=== PATIENT | female | born 1970 | race Caucasian/White ===

== ENCOUNTER → 2016-08-07 | Outpatient (REF) | payer OTHER ==
[2016-08-07 12:15] LABS: BASO % 0.7 % (0.0-1.0); EOS # 0.1 K/mm3 (0.0-0.50); EOS % 1.7 % (0.0-3.0); LARGE UNSTAINED CELL # 0.1 K/mm3 (0.0-0.4); LARGE UNSTAINED CELL % 1.5 % (0.0-4.0); LYMPH # 1.9 K/mm3 (1.5-4.5); LYMPH % 30.5 % (24.0-44.0); MEAN CORPUSCULAR HEMOGLOBIN 24.8 pg (27.0-33.0); MEAN CORPUSCULAR HGB CONC 30.3 g/dl (32.0-36.5); MEAN CORPUSCULAR VOLUME 81.9 fl (80.0-96.0); MONO # 0.4 K/mm3 (0.0-0.8); MONO % 6.6 % (0.0-5.0); NEUTROPHILS # 3.5 K/mm3 (1.8-7.7); PLATELET COUNT, AUTOMATED 312 k/mm3 (150-450); RED CELL DISTRIBUTION WIDTH 14.5 % (11.5-14.5); WHITE BLOOD COUNT 5.9 K/mm3 (4.0-10.0)
[2016-08-07 12:36] LABS: LUTEINIZING HORMONE 16.8 mIU/mL
[2016-08-07 12:37] LABS: FOLLICLE STIMULATING HORMONE 39.7 mIU/mL; VITAMIN B12 LEVEL 414 PG/ML (247-911)
[2016-08-07 12:43] LABS: ALBUMIN 3.9 GM/DL (3.2-5.2); ALBUMIN/GLOBULIN RATIO 1.11 (1.00-1.93); ALKALINE PHOSPHATASE 102 U/L (45-117); ALT/SGPT 21 U/L (12-78); ANION GAP 6 MEQ/L (8-16); AST/SGOT 14 U/L (15-37); BILIRUBIN,TOTAL 0.2 MG/DL (0.2-1.0); BLOOD UREA NITROGEN 15 MG/DL (7-18); CALCIUM LEVEL 7.8 MG/DL (8.5-10.1); CARBON DIOXIDE LEVEL 30 MEQ/L (21-32); CHLORIDE LEVEL 104 MEQ/L (98-107); CHOLESTEROL LEVEL 146 MG/DL (<200); CREATININE FOR GFR 0.83 MG/DL (0.55-1.02); FERRITIN 3 NG/ML (8-252); GLOMERULAR FILTRATION RATE > 60.0 (>58); GLUCOSE, FASTING 103 MG/DL (70-105); PERCENT SATURATION 6.5 % (13.2-37.4); POTASSIUM SERUM 4.2 MEQ/L (3.5-5.1); SODIUM LEVEL 140 MEQ/L (136-145); TOTAL IRON BINDING CAPACITY 449 UG/DL (250-450); TOTAL PROTEIN 7.4 GM/DL (6.4-8.2); TRIGLYCERIDES LEVEL 103 MG/DL (<150)
== END ==
LOC: M LABDRAWP 11:33
PROVIDERS: ATTEND Family Medicine
DX: E55.9 Vitamin D deficiency, unspecified (principal); N95.1 Menopausal and female climacteric states; E11.9 Type 2 diabetes mellitus without complications; E78.5 Hyperlipidemia, unspecified

== ENCOUNTER → 2016-08-19 | Outpatient (CLI) | payer OTHER ==
--- NOTE | 2016-08-20 08:17 | REPMRS ---
Patient History The patient states she has not had a clinical breast exam in over a year. No known family history of cancer. Digital Woman Screen Mammo: August 19, 2016 - Exam #: [id number] Bilateral CC and MLO view(s) were taken. Technologist: Lucie Mike, Technologist Prior study comparison: July 04, 2015, digital woman screen mammo performed at [facility]. July 03, 2014, digital woman screen mammo performed at [facility]. June 14, 2013, digital woman screen mammo performed at [facility]. FINDINGS: The breast tissue is heterogeneously dense. This may lower the sensitivity of mammography. There is a moderate amount of heterogeneously dense fibroglandular tissue which is fairly symmetric. There is no interval development of dominant mass, architectural distortion, or clustered microcalcification typical of malignancy. There has been no change in the appearance of the mammogram from the prior studies. ASSESSMENT: BI-RADS/ACR category 1 mammogram. Negative. Recommendation Routine screening mammogram of both breasts in 1 year (for women over age 40). This mammogram was interpreted with the aid of an FDA-approved computer-aided dectection system. Electronically Signed By: Darryl Romeo MD 08/20/16 0816
== END ==
LOC: M WHC 16:18
PROVIDERS: ATTEND Family Medicine
DX: Z12.39 Encounter for other screening for malignant neoplasm of breast (principal)

== ENCOUNTER → 2016-09-02 | Outpatient (REF) | payer OTHER | LOC: M LAB REF 09:11 | PROVIDERS: ATTEND Physician Assistant | DX: J02.9 Acute pharyngitis, unspecified (principal); J01.10 Acute frontal sinusitis, unspecified; R05 Cough ==

== ENCOUNTER → 2017-01-02 | Outpatient (CLI) | payer OTHER ==
[2017-01-02 20:23] LABS: BASO # 0.1 10^3/uL (0.0-0.2); BASO % 0.6 % (0.0-1.0); EOS # 0.2 10^3/uL (0.0-0.50); EOS % 1.8 % (0.0-3.0); IMMATURE GRANULOCYTE % 0.5 % (0-0); LYMPH # 2.6 10^3/uL (1.5-4.5); LYMPH % 30.9 % (24.0-44.0); MEAN CORPUSCULAR HEMOGLOBIN 24.8 pg (27.0-33.0); MEAN CORPUSCULAR HGB CONC 29.9 g/dl (32.0-36.5); MONO # 0.7 10^3/uL (0.0-0.8); MONO % 8.3 % (0.0-5.0); NEUTROPHILS # 4.9 10^3/uL (1.8-7.7); NEUTROPHILS % 57.9 % (36.0-66.0); PLATELET COUNT, AUTOMATED 293 10^3/uL (150-450); RED CELL DISTRIBUTION WIDTH 16.2 % (11.5-14.5); WHITE BLOOD COUNT 8.4 10^3/uL (4.0-10.0)
[2017-01-02 20:25] LABS: ADD MORPHOLOGY? NO
[2017-01-02 21:13] LABS: ALBUMIN 3.7 GM/DL (3.2-5.2); ALBUMIN/GLOBULIN RATIO 1.12 (1.00-1.93); ALKALINE PHOSPHATASE 88 U/L (45-117); ALT/SGPT 22 U/L (12-78); ANION GAP 6 MEQ/L (8-16); AST/SGOT 13 U/L (15-37); BILIRUBIN,TOTAL 0.2 MG/DL (0.2-1.0); BLOOD UREA NITROGEN 16 MG/DL (7-18); CALCIUM LEVEL 8.5 MG/DL (8.5-10.1); CARBON DIOXIDE LEVEL 29 MEQ/L (21-32); CHLORIDE LEVEL 104 MEQ/L (98-107); FERRITIN 4 NG/ML (8-252); FREE T4 0.96 NG/DL (0.76-1.46); GLOMERULAR FILTRATION RATE > 60.0 (>58); GLUCOSE, FASTING 106 MG/DL (70-105); PERCENT SATURATION 5.9 % (13.2-45.0); POTASSIUM SERUM 4.2 MEQ/L (3.5-5.1); SODIUM LEVEL 139 MEQ/L (136-145); TOTAL IRON BINDING CAPACITY 388 UG/DL (250-450)
== END ==
LOC: M WUC 15:49
PROVIDERS: ATTEND Family Medicine
DX: D50.9 Iron deficiency anemia, unspecified (principal); E11.9 Type 2 diabetes mellitus without complications; E55.9 Vitamin D deficiency, unspecified

== ENCOUNTER → 2017-01-23 | Outpatient (CLI) | payer OTHER ==
--- NOTE | 2017-01-23 18:19 | REP ---
Lumbar spine five views: Comparison is 06/01/2014. There is scoliosis convex right at the thoracolumbar junction, unchanged. There are surgical clips in the abdominal right upper quadrant, unchanged. Vertebral body heights and alignment are normal and unchanged. There is mild disc space narrowing and degenerative disc disease at L1-2. This is unchanged. The spaces are otherwise unremarkable. There is no spondylolysis. There is no spondylolisthesis. The pedicles, facets and sacroiliac articulations are unremarkable. Impression: Scoliosis of the thoracolumbar junction. Mild L1-2 degenerative disc disease. Otherwise, negative lumbar spine. Signed by Jb Hickman MD 01/23/2017 06:11 P
== END ==
LOC: M WUC 17:30
PROVIDERS: ATTEND Physician Assistant
DX: M54.5 Low back pain (principal)

== ENCOUNTER → 2017-05-21 | Outpatient (REF) | payer OTHER ==
[2017-05-21 17:28] LABS: ALBUMIN/GLOBULIN RATIO 1.18 (1.00-1.93); ALKALINE PHOSPHATASE 109 U/L (45-117); ALT/SGPT 19 U/L (12-78); ANION GAP 9 MEQ/L (8-16); AST/SGOT 10 U/L (7-37); BILIRUBIN,TOTAL 0.3 MG/DL (0.2-1.0); BLOOD UREA NITROGEN 12 MG/DL (7-18); C REACTIVE PROTEIN QUANTITATIV 0.32 MG/DL (0.00-0.30); CALCIUM LEVEL 8.8 MG/DL (8.5-10.1); CARBON DIOXIDE LEVEL 29 MEQ/L (21-32); CHLORIDE LEVEL 103 MEQ/L (98-107); CHOLESTEROL LEVEL 146 MG/DL (<200); CHOLESTEROL RISK RATIO 2.433 (<5); CPK CREATINE PHOSPHOKINASE 78 U/L (26-192); CREATININE FOR GFR 0.84 MG/DL (0.55-1.30); GLOMERULAR FILTRATION RATE > 60.0 (>58); GLUCOSE, FASTING 87 MG/DL (70-100); HDL CHOLESTEROL 60 MG/DL (>40); LDL CHOLESTEROL 57.2 MG/DL (<100); NON-HDL-C 86 MG/DL; POTASSIUM SERUM 4.1 MEQ/L (3.5-5.1); SODIUM LEVEL 141 MEQ/L (136-145); TOTAL PROTEIN 7.4 GM/DL (6.4-8.2); TRIGLYCERIDES LEVEL 144 MG/DL (<150)
[2017-05-21 17:32] LABS: APPEARANCE, URINE CLEAR (CLEAR); BACTERIA, URINE AUTO 1+ (NEGATIVE); BILIRUBIN, URINE AUTO NEGATIVE (NEGATIVE); BLOOD, URINE BLOOD NEGATIVE (NEGATIVE); COLOR, URINE YELLOW (YELLOW); GLUCOSE, URINE (UA) AUTO NEGATIVE (NEGATIVE); KETONE, URINE AUTO NEGATIVE (NEGATIVE); LEUKOCYTE ESTERASE, URINE AUTO NEGATIVE (NEGATIVE); NITRITE, URINE AUTO NEGATIVE (NEGATIVE); PROTEIN, URINE AUTO NEGATIVE (NEGATIVE); RBC, URINE AUTO 0 /HPF (0-3); SQUAMOUS EPITHELIAL CELL UR AU 1 /HPF (0-6); UROBILINOGEN, URINE AUTO 0.2 mg/dL (0.0-2.0); WBC, URINE AUTO 1 /HPF (0-3)
[2017-05-21 17:39] LABS: PTH INTACT 46.1 PG/ML (18.5-88.0); TOTAL 25(OH) VITAMIN D 91.4 NG/ML (30.0-100.0)
[2017-05-21 17:40] LABS: VITAMIN B12 LEVEL 473 PG/ML (247-911)
[2017-05-21 17:47] LABS: CREATININE, URINE 69.6 MG/DL; MALB URINE SIEMENS 5.1 MG/L; MAU/CREAT RATIO 7.3 MCG/MG (0.0-30.0)
[2017-05-21 18:03] LABS: BASO # 0.1 10^3/uL (0.0-0.2); BASO % 0.7 % (0.0-1.0); EOS # 0.1 10^3/uL (0.0-0.50); EOS % 0.9 % (0.0-3.0); HEMATOCRIT 34.7 % (36.0-47.0); HEMOGLOBIN 10.7 g/dl (12.0-16.0); IMMATURE GRANULOCYTE % 0.4 % (0-3.0); LYMPH # 2.6 10^3/uL (1.5-4.5); LYMPH % 24.8 % (24.0-44.0); MEAN CORPUSCULAR HEMOGLOBIN 25.2 pg (27.0-33.0); MEAN CORPUSCULAR HGB CONC 30.8 g/dl (32.0-36.5); MEAN CORPUSCULAR VOLUME 81.8 fl (80.0-96.0); MONO # 0.9 10^3/uL (0.0-0.8); MONO % 8.5 % (0.0-5.0); NEUTROPHILS # 6.9 10^3/uL (1.8-7.7); NEUTROPHILS % 64.7 % (36.0-66.0); PLATELET COUNT, AUTOMATED 322 10^3/uL (150-450); RED BLOOD COUNT 4.24 10^6/uL (4.00-5.40); RED CELL DISTRIBUTION WIDTH 15.5 % (11.5-14.5); RETIC HEMOGLOBIN EQUIVALENT 28.6 pg (24-36); RETICULOCYTE # 68.7 10^9/L (17-77); RETICULOCYTE % 1.6 % (0.5-1.5); WHITE BLOOD COUNT 10.7 10^3/uL (4.0-10.0)
== END ==
LOC: M SFHCPLAZ 15:04
DX: D50.9 Iron deficiency anemia, unspecified (principal); E55.9 Vitamin D deficiency, unspecified; E78.5 Hyperlipidemia, unspecified; E11.9 Type 2 diabetes mellitus without complications
CPT/HCPCS: 82550

== ENCOUNTER → 2017-09-30 | Outpatient (CLI) | payer OTHER | LOC: M WHC 09:55 | DX: Z12.31 Encounter for screening mammogram for malignant neoplasm of breast (principal) | CPT/HCPCS: 77067 ==

== ENCOUNTER → 2018-02-01 | Outpatient (REF) | payer BC ==
[2018-02-01 11:38] LABS: BASO # 0.1 10^3/uL (0.0-0.2); BASO % 0.4 % (0.0-1.0); EOS # 0.1 10^3/uL (0.0-0.50); HEMOGLOBIN 10.2 g/dl (12.0-15.5); IMMATURE GRANULOCYTE % 0.4 % (0-3.0); LYMPH # 1.3 10^3/uL (1.5-4.5); LYMPH % 9.7 % (24.0-44.0); MEAN CORPUSCULAR HEMOGLOBIN 24.3 pg (27.0-33.0); MEAN CORPUSCULAR VOLUME 81.1 fl (80.0-96.0); MONO # 0.8 10^3/uL (0.0-0.8); MONO % 5.9 % (0.0-5.0); NEUTROPHILS # 11.1 10^3/uL (1.8-7.7); NEUTROPHILS % 82.6 % (36.0-66.0); PLATELET COUNT, AUTOMATED 322 10^3/uL (150-450); RED BLOOD COUNT 4.19 10^6/uL (4.00-5.40); RED CELL DISTRIBUTION WIDTH 15.8 % (11.5-14.5); RETIC HEMOGLOBIN EQUIVALENT 27.1 pg (24-36); RETICULOCYTE # 59.9 10^9/L (17-77); RETICULOCYTE % 1.4 % (0.5-1.5); WHITE BLOOD COUNT 13.5 10^3/uL (4.0-10.0)
[2018-02-01 12:05] LABS: ESTIMATED AVERAGE GLUCOSE 157 MG/DL (60-110); HEMOGLOBIN A1c 7.1 %
[2018-02-01 12:25] LABS: ALBUMIN 3.8 GM/DL (3.2-5.2); ALBUMIN/GLOBULIN RATIO 1.09 (1.00-1.93); ALKALINE PHOSPHATASE 125 U/L (45-117); ALT/SGPT 18 U/L (12-78); ANION GAP 11 MEQ/L (8-16); AST/SGOT 10 U/L (7-37); BILIRUBIN,TOTAL 0.4 MG/DL (0.2-1.0); BLOOD UREA NITROGEN 14 MG/DL (7-18); CALCIUM LEVEL 8.4 MG/DL (8.5-10.1); CARBON DIOXIDE LEVEL 26 MEQ/L (21-32); CHLORIDE LEVEL 104 MEQ/L (98-107); CREATININE FOR GFR 0.93 MG/DL (0.55-1.30); FERRITIN 2 NG/ML (8-252); FREE T4 0.95 NG/DL (0.76-1.46); GLOMERULAR FILTRATION RATE > 60.0 (>58); GLUCOSE, FASTING 142 MG/DL (70-100); POTASSIUM SERUM 4.1 MEQ/L (3.5-5.1); SODIUM LEVEL 141 MEQ/L (136-145); THYROID STIMULATING HORMONE 0.962 uIU/ML (0.358-3.740); TOTAL PROTEIN 7.3 GM/DL (6.4-8.2)
== END ==
LOC: M SFHCPLAZ 08:20
DX: E03.9 Hypothyroidism, unspecified (principal); D50.9 Iron deficiency anemia, unspecified; E11.9 Type 2 diabetes mellitus without complications; E78.5 Hyperlipidemia, unspecified
CPT/HCPCS: 84443

== ENCOUNTER → 2018-06-01 | Outpatient (CLI) | payer BC ==
--- NOTE | 2018-06-01 16:59 | REP ---
Clinical: Epicondylitis . Technique: AP, lateral, bilateral oblique views of the right elbow. Findings: No acute fracture or dislocation is appreciated. Joint spaces and surrounding soft tissues appear normal. Lateral view demonstrates normal positioning to the anterior and posterior fat pads without evidence for effusion/hemarthrosis. No subcutaneous emphysema or foreign body identified. Impression: Normal right elbow radiographs. Electronically Signed by Reed Moreno MD 06/01/2018 04:51 P
== END ==
LOC: M WUC 16:37
PROVIDERS: ATTEND Physician Assistant
DX: M77.11 Lateral epicondylitis, right elbow (principal)

== ENCOUNTER → 2018-09-10 | Outpatient (CLI) | payer BC ==
[2018-09-10 10:23] LABS: BASO % 0.7 % (0.0-1.0); EOS # 0.2 10^3/uL (0.0-0.50); EOS % 2.8 % (0.0-3.0); HEMATOCRIT 32.6 % (36.0-47.0); HEMOGLOBIN 9.9 g/dl (12.0-15.5); LYMPH # 1.7 10^3/uL (1.5-4.5); LYMPH % 31.7 % (24.0-44.0); MEAN CORPUSCULAR HEMOGLOBIN 25.7 pg (27.0-33.0); MEAN CORPUSCULAR HGB CONC 30.4 g/dl (32.0-36.5); MEAN CORPUSCULAR VOLUME 84.7 fl (80.0-96.0); MONO # 0.6 10^3/uL (0.0-0.8); NEUTROPHILS # 2.9 10^3/uL (1.8-7.7); NEUTROPHILS % 53.4 % (36.0-66.0); PLATELET COUNT, AUTOMATED 240 10^3/uL (150-450); RED BLOOD COUNT 3.85 10^6/uL (4.00-5.40); WHITE BLOOD COUNT 5.4 10^3/uL (4.0-10.0)
[2018-09-10 10:52] LABS: HEMOGLOBIN A1c 7.6 %
[2018-09-10 10:59] LABS: ALBUMIN 3.6 GM/DL (3.2-5.2); ALT/SGPT 31 U/L (12-78); BILIRUBIN,TOTAL 0.5 MG/DL (0.2-1.0); BLOOD UREA NITROGEN 18 MG/DL (7-18); CALCIUM LEVEL 8.1 MG/DL (8.5-10.1); CARBON DIOXIDE LEVEL 28 MEQ/L (21-32); CHLORIDE LEVEL 108 MEQ/L (98-107); CHOLESTEROL LEVEL 149 MG/DL (<200); CHOLESTEROL RISK RATIO 3.104 (<5); CREATININE FOR GFR 0.86 MG/DL (0.55-1.30); FERRITIN 4 NG/ML (8-252); FREE T4 0.95 NG/DL (0.76-1.46); GLOMERULAR FILTRATION RATE > 60.0 (>58); GLUCOSE, FASTING 115 MG/DL (70-100); HDL CHOLESTEROL 48 MG/DL (>40); IRON (FE) 44 UG/DL (50-170); LDL CHOLESTEROL 87 MG/DL (<100); MALB URINE SIEMENS 8.6 MG/L; MAU/CREAT RATIO 7.4 MCG/MG (0.0-30.0); NON-HDL-C 101 MG/DL; POTASSIUM SERUM 4.1 MEQ/L (3.5-5.1); SODIUM LEVEL 142 MEQ/L (136-145); THYROID STIMULATING HORMONE 0.544 uIU/ML (0.358-3.740); TOTAL IRON BINDING CAPACITY 442 UG/DL (250-450); TOTAL PROTEIN 7.2 GM/DL (6.4-8.2); TRIGLYCERIDES LEVEL 69 MG/DL (<150)
== END ==
LOC: M WUC 08:03
PROVIDERS: ATTEND Physician Assistant
DX: E78.49 Other hyperlipidemia (principal); E03.9 Hypothyroidism, unspecified; E11.9 Type 2 diabetes mellitus without complications; E50.9 Vitamin A deficiency, unspecified

== ENCOUNTER → 2018-10-25 | Outpatient (CLI) | payer BC ==
--- NOTE | 2018-10-25 15:04 | REPMRS ---
Patient History The patient states she has not had a clinical breast exam in over a year. No known family history of cancer. No Hormone Replacement Therapy 3D TOMOSYNTHESIS WAS PERFORMED. [facility] for [facility] 8.6%. Digital Woman Screen Mammo: October 25, 2018 - Exam #: [id number] Bilateral CC and MLO view(s) were taken. Technologist: Lucie Mike, Technologist Prior study comparison: September 30, 2017, bilateral digital woman screen mammo performed at [facility]. August 19, 2016, digital woman screen mammo performed at [facility]. FINDINGS: The breast tissue is heterogeneously dense. This may lower the sensitivity of mammography. There has been no change in the appearance of the mammogram from the prior studies. There is a moderate amount of residual fibroglandular tissue which is fairly symmetric. There is no interval development of dominant mass, areas of architectural distortion, or clustered microcalcification typical of malignancy. Assessment: BI-RADS/ACR category 1 mammogram. Negative Mammogram. Recommendation Routine screening mammogram in 1 year (for women over age 40). This mammogram was interpreted with the aid of an FDA-approved computer-aided dectection system. Electronically Signed By: Jb Jackson MD 10/25/18 [id number]
== END ==
LOC: M WHC 13:21
PROVIDERS: ATTEND Family Medicine
DX: Z12.31 Encounter for screening mammogram for malignant neoplasm of breast (principal)

== ENCOUNTER → 2018-12-20 | Outpatient (CLI) | payer BC ==
[~2018-12-20] VITALS: Ht 165.1 cm; Wt 77.3 kg
[~2018-12-20] MED LIST: ATOR1TAB19 PO; CLON0.5T17 PO; FERRIC CARBOXYMALTOSE INJ 750 MG in NS 250 ML IV ONE; IRBE75TA5 PO; METF500T13 PO; OMEP10CASR PO; SYNT50TA PO; VENL150C43 PO; VICT18IN SC; VITA1CAP25 PO
[2018-12-20 14:30] VITALS: BP 122/77
[2018-12-20 16:30] VITALS: BP 131/80
[2018-12-20 17:30] VITALS: BP 131/87
[2018-12-20 18:28] VITALS: BP 129/86
[2018-12-20 18:45] VITALS: BP 128/88
== END ==
LOC: M INFU 14:21
PROVIDERS: ATTEND Physician Assistant
DX: D50.9 Iron deficiency anemia, unspecified (principal); Z79.899 Other long term (current) drug therapy
CPT/HCPCS: 96365; 96366; J1439

== ENCOUNTER 2018-12-27 14:25 | Outpatient (CLI) | payer BC ==
[~2018-12-27] VITALS: Ht 165.1 cm; Wt 77.3 kg
[2018-12-27 14:25] VITALS: BP 115/71
[~2018-12-27 14:25] MED LIST changes: -FERRIC CARBOXYMALTOSE INJ 750 MG in NS 250 ML IV ONE
[2018-12-27] MEDS ORDERED: FERRIC CARBOXYMALTOSE INJ 750 MG in NS 250 ML IV ONE (15:00)
[2018-12-27 16:55] VITALS: BP 122/80
== END 2018-12-27 16:55 | disposition home or self-care (01) ==
LOC: M INFU 14:25
PROVIDERS: ATTEND Physician Assistant
DX: D50.9 Iron deficiency anemia, unspecified (principal); Z79.899 Other long term (current) drug therapy
CPT/HCPCS: 96365; J1439

== ENCOUNTER → 2019-01-03 | Outpatient (CLI) | payer BC ==
[2019-01-03 20:31] LABS: PERCENT SATURATION 33.9 % (13.2-45.0)
== END ==
LOC: M WUC 16:04
PROVIDERS: ATTEND Physician Assistant
DX: D50.9 Iron deficiency anemia, unspecified (principal)

== ENCOUNTER → 2019-04-04 | Outpatient (CLI) | payer BC ==
[2019-04-04 13:04] LABS: BASO # 0.1 10^3/uL (0.0-0.2); BASO % 0.9 % (0.0-1.0); EOS # 0.1 10^3/uL (0.0-0.5); EOS % 1.3 % (0.0-3.0); HEMATOCRIT 44.8 % (36.0-47.0); HEMOGLOBIN 14.4 g/dl (12.0-15.5); LYMPH # 1.8 10^3/uL (1.5-5.0); LYMPH % 20.9 % (24.0-44.0); MEAN CORPUSCULAR HEMOGLOBIN 30.1 pg (27.0-33.0); MEAN CORPUSCULAR HGB CONC 32.1 g/dl (32.0-36.5); MEAN CORPUSCULAR VOLUME 93.5 fl (80.0-96.0); MONO # 0.5 10^3/uL (0.0-0.8); MONO % 5.6 % (0.0-5.0); NEUTROPHILS # 6.1 10^3/uL (1.5-8.5); NEUTROPHILS % 70.7 % (36.0-66.0); PLATELET COUNT, AUTOMATED 279 10^3/uL (150-450); RED BLOOD COUNT 4.79 10^6/uL (4.00-5.40); WHITE BLOOD COUNT 8.6 10^3/uL (4.0-10.0)
[2019-04-04 13:33] LABS: ALT/SGPT 38 U/L (12-78); BILIRUBIN,TOTAL 0.4 MG/DL (0.2-1.0); BLOOD UREA NITROGEN 17 MG/DL (7-18); CALCIUM LEVEL 8.8 MG/DL (8.5-10.1); CARBON DIOXIDE LEVEL 30 MEQ/L (21-32); CHLORIDE LEVEL 103 MEQ/L (98-107); CREATININE FOR GFR 0.78 MG/DL (0.55-1.30); FREE T4 0.78 NG/DL (0.76-1.46); GLOMERULAR FILTRATION RATE > 60.0 (>58); GLUCOSE, FASTING 130 MG/DL (70-100); POTASSIUM SERUM 4.7 MEQ/L (3.5-5.1); SODIUM LEVEL 140 MEQ/L (136-145); TOTAL PROTEIN 7.6 GM/DL (6.4-8.2)
[2019-04-04 14:43] LABS: MALB URINE SIEMENS 8.5 MG/L; MAU/CREAT RATIO 5.9 MCG/MG (0.0-30.0)
[2019-04-04 14:47] LABS: HEMOGLOBIN A1c 6.7 %
== END ==
LOC: M WUC 09:38
PROVIDERS: ATTEND Physician Assistant
DX: E03.9 Hypothyroidism, unspecified (principal); E11.9 Type 2 diabetes mellitus without complications

== ENCOUNTER → 2019-07-11 | Outpatient (CLI) | payer BC ==
[~2019-07-11] MED LIST changes: +IRBE75TA4 PO; -IRBE75TA5 PO
[2019-07-11 09:44] LABS: HEMOGLOBIN A1c 6.3 %
[2019-07-11 10:01] LABS: ALT/SGPT 29 U/L (12-78); BILIRUBIN,TOTAL 0.6 MG/DL (0.2-1.0); BLOOD UREA NITROGEN 14 MG/DL (7-18); CALCIUM LEVEL 8.5 MG/DL (8.5-10.1); CARBON DIOXIDE LEVEL 31 MEQ/L (21-32); CHLORIDE LEVEL 104 MEQ/L (98-107); CREATININE FOR GFR 0.81 MG/DL (0.55-1.30); FREE T4 0.97 NG/DL (0.76-1.46); GLOMERULAR FILTRATION RATE > 60.0 (>58); GLUCOSE, FASTING 122 MG/DL (70-100); POTASSIUM SERUM 4.5 MEQ/L (3.5-5.1); SODIUM LEVEL 140 MEQ/L (136-145); TOTAL PROTEIN 7.1 GM/DL (6.4-8.2)
== END ==
LOC: M WUC 08:10
PROVIDERS: ATTEND Physician Assistant
DX: E03.9 Hypothyroidism, unspecified (principal); E11.9 Type 2 diabetes mellitus without complications

== ENCOUNTER → 2019-10-17 | Outpatient (CLI) | payer BC ==
[2019-10-17 11:28] LABS: BASO # 0.1 10^3/uL (0.0-0.2); BASO % 0.9 % (0.0-1.0); EOS # 0.2 10^3/uL (0.0-0.5); EOS % 2.7 % (0.0-3.0); HEMATOCRIT 42.7 % (36.0-47.0); LYMPH # 1.9 10^3/uL (1.5-5.0); MEAN CORPUSCULAR HEMOGLOBIN 30.6 pg (27.0-33.0); MEAN CORPUSCULAR HGB CONC 32.8 g/dl (32.0-36.5); MEAN CORPUSCULAR VOLUME 93.2 fl (80.0-96.0); MONO # 0.5 10^3/uL (0.0-0.8); MONO % 6.6 % (0.0-5.0); NEUTROPHILS # 5.1 10^3/uL (1.5-8.5); NEUTROPHILS % 65.3 % (36.0-66.0); PLATELET COUNT, AUTOMATED 281 10^3/uL (150-450); RED BLOOD COUNT 4.58 10^6/uL (4.00-5.40); WHITE BLOOD COUNT 7.8 10^3/uL (4.0-10.0)
[2019-10-17 12:14] LABS: ALBUMIN 4.1 GM/DL (3.2-5.2); ALT/SGPT 21 U/L (12-78); BILIRUBIN,TOTAL 0.5 MG/DL (0.2-1.0); BLOOD UREA NITROGEN 14 MG/DL (7-18); CALCIUM LEVEL 8.8 MG/DL (8.5-10.1); CARBON DIOXIDE LEVEL 32 MEQ/L (21-32); CHLORIDE LEVEL 101 MEQ/L (98-107); CHOLESTEROL LEVEL 144 MG/DL (<200); CHOLESTEROL RISK RATIO 2.938 (<5); CREATININE FOR GFR 0.78 MG/DL (0.55-1.30); FERRITIN 111 NG/ML (8-252); FREE T4 0.97 NG/DL (0.76-1.46); GLOMERULAR FILTRATION RATE > 60.0 (>58); GLUCOSE, FASTING 106 MG/DL (70-100); HDL CHOLESTEROL 49 MG/DL (>40); IRON (FE) 113 UG/DL (50-170); LDL CHOLESTEROL 71 MG/DL (<100); NON-HDL-C 95 MG/DL; PERCENT SATURATION 38.2 % (13.2-45.0); POTASSIUM SERUM 3.9 MEQ/L (3.5-5.1); SODIUM LEVEL 138 MEQ/L (136-145); TOTAL IRON BINDING CAPACITY 296 UG/DL (250-450); TOTAL PROTEIN 7.5 GM/DL (6.4-8.2); TRIGLYCERIDES LEVEL 120 MG/DL (<150)
[2019-10-17 13:13] LABS: TOTAL 25(OH) VITAMIN D 122.5 NG/ML (30.0-100.0)
[2019-10-17 15:20] LABS: MALB URINE SIEMENS 13.8 MG/L; MAU/CREAT RATIO 6.7 MCG/MG (0.0-30.0)
[2019-10-17 16:13] LABS: HEMOGLOBIN A1c 6.7 %
== END ==
LOC: M WUC 08:36
PROVIDERS: ATTEND Family Medicine
DX: E03.9 Hypothyroidism, unspecified (principal); I10 Essential (primary) hypertension; E11.9 Type 2 diabetes mellitus without complications; D50.9 Iron deficiency anemia, unspecified; E78.49 Other hyperlipidemia; E55.9 Vitamin D deficiency, unspecified

== ENCOUNTER → 2019-11-03 | Outpatient (CLI) | payer BC ==
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
== END ==
LOC: M WHC 13:57
PROVIDERS: ATTEND Family Medicine
DX: Z12.31 Encounter for screening mammogram for malignant neoplasm of breast (principal)

== ENCOUNTER → 2020-01-11 | Outpatient (CLI) | payer BC ==
[2020-01-11 11:12] LABS: ALBUMIN 4.1 GM/DL (3.2-5.2); ALT/SGPT 21 U/L (12-78); BILIRUBIN,TOTAL 0.4 MG/DL (0.2-1.0); BLOOD UREA NITROGEN 19 MG/DL (7-18); CALCIUM LEVEL 8.9 MG/DL (8.5-10.1); CARBON DIOXIDE LEVEL 27 MEQ/L (21-32); CHLORIDE LEVEL 104 MEQ/L (98-107); CREATININE FOR GFR 0.74 MG/DL (0.55-1.30); GLOMERULAR FILTRATION RATE > 60.0 (>58); GLUCOSE, FASTING 97 MG/DL (70-100); SODIUM LEVEL 138 MEQ/L (136-145); TOTAL PROTEIN 7.4 GM/DL (6.4-8.2)
[2020-01-11 12:23] LABS: HEMOGLOBIN A1c 5.9 %
== END ==
LOC: M WUC 08:03
PROVIDERS: ATTEND Family Medicine
DX: E11.9 Type 2 diabetes mellitus without complications (principal)

== ENCOUNTER → 2020-04-05 | Outpatient (CLI) | payer BC ==
[2020-04-05 11:17] LABS: BASO # 0.1 10^3/uL (0.0-0.2); BASO % 0.7 % (0.0-1.0); EOS # 0.2 10^3/uL (0.0-0.5); EOS % 2.8 % (0.0-3.0); HEMATOCRIT 43.3 % (36.0-47.0); HEMOGLOBIN 13.8 g/dl (12.0-15.5); LYMPH % 28.9 % (24.0-44.0); MEAN CORPUSCULAR HGB CONC 31.9 g/dl (32.0-36.5); MEAN CORPUSCULAR VOLUME 94.1 fl (80.0-96.0); MONO # 0.5 10^3/uL (0.0-0.8); MONO % 7.6 % (0.0-5.0); NEUTROPHILS % 59.7 % (36.0-66.0); PLATELET COUNT, AUTOMATED 275 10^3/uL (150-450); WHITE BLOOD COUNT 6.7 10^3/uL (4.0-10.0)
[2020-04-05 11:35] LABS: HEMOGLOBIN A1c 5.7 %
[2020-04-05 11:59] LABS: ALT/SGPT 25 U/L (12-78); BILIRUBIN,TOTAL 0.5 MG/DL (0.2-1.0); BLOOD UREA NITROGEN 16 MG/DL (7-18); CALCIUM LEVEL 9.1 MG/DL (8.5-10.1); CARBON DIOXIDE LEVEL 33 MEQ/L (21-32); CHLORIDE LEVEL 103 MEQ/L (98-107); CREATININE FOR GFR 0.88 MG/DL (0.55-1.30); FREE T4 0.89 NG/DL (0.76-1.46); GLOMERULAR FILTRATION RATE > 60.0 (>58); GLUCOSE, FASTING 112 MG/DL (70-100); POTASSIUM SERUM 4.1 MEQ/L (3.5-5.1); SODIUM LEVEL 141 MEQ/L (136-145); TOTAL 25(OH) VITAMIN D 47.2 NG/ML (30.0-100.0); TOTAL PROTEIN 7.2 GM/DL (6.4-8.2)
== END ==
LOC: M WUC 08:02
PROVIDERS: ATTEND Physician Assistant
DX: E11.9 Type 2 diabetes mellitus without complications (principal); E03.9 Hypothyroidism, unspecified; K21.9 Gastro-esophageal reflux disease without esophagitis

== ENCOUNTER → 2020-04-09 | Outpatient (REF) | payer BC | LOC: M LAB REF 15:53 | PROVIDERS: ATTEND Physician Assistant | DX: J02.9 Acute pharyngitis, unspecified (principal) ==

== ENCOUNTER 2020-05-31 17:08 | Emergency (ER) | payer BC ==
[~2020-05-31] VITALS: Ht 165.1 cm; Wt 77.0 kg
--- OUTSIDE RECORDS SUMMARY | 2020-05-31 17:14 | CCD ---
Continuity of Care Document (CCD) Created on: 04/11/2020 Yulisa Mancini External Reference #: [id number] : [id number] Sex: Female Author Author Yulisa SILVA Organization [place] [address] Phone [phone] Care Team Providers Care Salad Counter Attendant Name Role Phone Mariana Ng D.O. AUTM Problems Active Problems Provider Date Generalized anxiety disorder MILADYS Moyer Onset: 12/2018 Type 2 diabetes mellitus MILADYS Moyer Onset: 08/13/19 19 Essential hypertension MILADYS Moyer Onset: 08/12/2018 Hypothyroidism MILADYS Moyer Onset: 08/12/2018 Gastroesophageal reflux disease MILADYS Moyer Onset: 0 08/12/2018 Mixed hyperlipidemia MILADYS Moyer Onset: 08/12/2018 Iron deficiency anemia MILADYS Moyer Onset: 09/13/2018 Social History Type Date Description Comments Sex Unknown ETOH Use Denies alcohol use Tobacco Use Start: Unknown Patient has never smoked Recreational Drug Use Denies Drug Use Smoking Status Reviewed: 10/05/19 Patient has never smoked Exercise Type/Frequency Does not exercise Sun Exposure Uses sunscreen Seat Belt/Car Seat Always uses seat belt Allergies, Adverse Reactions, Alerts Description No Known Drug Allergies Medications Active Medications SIG Qnty Indications Ordering Provide r Date Synthroid 75mcg Tablets 1 tab.by mouth each a.m. on empty stomach do not eat 1 hour after taking 90tabs Nick RobertsOSonia 04/01/2020 Victoza 18mg/3ML Solution Pen-Inje ct 1.8 mg subcutaneous injection daily. 27ml Mariana almeida D.O. 04/04/2019 Effexor XR 150mg Caps ER 24HR take capsule by mouth every day. 90caps F33.0 Rashid Roberts.O. 0 12/03/2018 Zofran Odt 4mg Tablets Dispers 1-2 tablets by mouth every 6 hours as needed for nausea 30tabs E11.9 Rashid Roberts.O. 10/19/2018 Metformin HCL 1000mg Tablets take 1000 mg tablet by mouth twice daily with food. 240tabs Rashid Robles.O. 09/13/2018 Novofine 32G X 6 mm Misc to be used with victoza pen once a day 100units E11.9 Nick RobertsO . 09/13/2018 Irbesartan 150mg Tablets Take One Tablet By Mouth Daily 90tabs Nick RobertsO. 08/12 Clonazepam 0.5mg Tablets take one tablet by mouth twice daily istop # [id number] 60tabs Rashid Robles.O. Omeprazole 20mg Capsules DR 1 by mouth every day 90caps Rashid Roberts.O. Atorvastatin Calcium 20mg Tablets Take 1 Tablet By Mouth Every Night 90tabs Nick RobertsOSonia Apple Cider Vinegar Diet Tablets 1 by mouth every day Unknown Womans Ultra Marcelino Diabetic Support U nknown History Medications Levothyroxine Sodium 75mcg Tablets 1 Tab.By Mouth Each A.M. On Empty Stomach DO Not Eat 1HR After Taking 90tabs Rashid Roberts.O. 01/05/2020 - 04/01/2020 Medications Administered in Office Medication SIG Qnty Indications Ordering Provider Date Immunization Administration Single Or Co mbination Injection MILADYS Moyer 04/2019 Immunizations CPT Code Status Date Vaccine Lot # [id number] Given 01/05/2020 Influenza Virus Vaccine, Quadrivalent, Split, Preservative Free [id number] U-Flu Given 01/20/2019 Influenza,Unspecified Vital Signs Date Vital Result Comment 04/11/2020 11:19am BP Systolic 124 mmHg BP Diastolic 80 mmHg Height 64.0 inches 5'4" Weight 171.38 lb BMI (Body Mass Index) 29.4 kg/m2 Heart Rate 95 /min Respiratory Rate 18 /min Body Temperature 99.1 F O2 % BldC Oximetry 98 % [place] Body Weight 120 lb 01/05/2020 4:14pm BP Systolic 118 mmHg BP Diastolic 82 mmHg Height 64.0 inches 5'4" Weight 172.25 lb BMI (Body Mass Index) 29.6 kg/m2 Heart Rate 102 /min Respiratory Rate 16 /min Body Temperature 98.1 F O2 % BldC Oximetry 95 % [place] Body Weight 120 lb Results Test Acquired Date Facility Test Result H/L Range Note CBC With Differential 04/05/[address] [address] [phone] White Blood Count 6.7 10 Normal 4.0-10.0 Red Blood Count 4.60 10 Normal 4.00-5.40 Hemoglobin 13.8 g/dL Normal 12.0-15.5 Hematocrit 43.3 % Normal 36.0-47.0 Mean Corpuscular Volume 94.1 fl Normal 80.0-96.0 Mean Corpuscular Hemoglobin 30.0 pg Normal 27.0-33.0 Mean Corpuscular HGB Conc 31.9 g/dL Low 32.0-36.5 Red Cell Distribution Width 12.0 % Normal 11.5-14.5 Platelet Count, Automated 275 10 Normal 150-450 Neutrophils % 59.7 % Normal 36.0-66.0 Lymph % 28.9 % Normal 24.0-44.0 Henry % 7.6 % High 0.0-5.0 Eos % 2.8 % Normal 0.0-3.0 Baso % 0.7 % Normal 0.0-1.0 Immature Granulocyte % 0.3 % Normal 0-3.0 Nucleated Red Blood Cell % 0.0 % Normal 0-0 Neutrophils # 4.0 10 Normal 1.5-8.5 Lymph # 2.0 10 Normal 1.5-5.0 Henry # 0.5 10 Normal 0.0-0.8 Eos # 0.2 10 Normal 0.0-0.5 Baso # 0.1 10 Normal 0.0-0.2 Comprehensive Metabolic Profil 04/05/[address] [id number] [phone] Glucose, Fasting 112 mg/dL High 70-100 Blood Urea Nitrogen 16 mg/dL Normal 7-18 Creatinine For GFR 0.88 mg/dL Normal 0.55-1.30 Glomerular Filtration Rate > 60.0 Normal >58 1 Sodium Level 141 mEq/L Normal 136-145 Potassium Serum 4.1 mEq/L Normal 3.5-5.1 Chloride Level 103 mEq/L Normal 98-107 Carbon Dioxide Level 33 mEq/L High 21-32 Anion Gap 5 mEq/L Low 8-16 Calcium Level 9.1 mg/dL Normal 8.5-10.1 Ast/Sgot 12 U/L Normal 7-37 Alt/SGPT 25 U/L Normal 12-78 Alkaline Phosphatase 124 U/L High 45-117 Bilirubin,Total 0.5 mg/dL Normal 0.2-1.0 Total Protein 7.2 GM/DL Normal 6.4-8.2 Albumin 4.0 GM/DL Normal 3.2-5.2 Albumin/Globulin Ratio 1.3 Normal 1.2-2.2 FT4&TSH Panel 04/05/2020 [facility] [address] [place] [address] [phone] Thyroid Stimulating Hormone 1.120 uIU/ML Normal 0. 358-3.740 Free T4 0.89 ng/dL Normal 0.76-1.46 Laboratory test finding 04/05/[address] [address] [phone] Total 25(Oh) Vitamin D 47.2 NG/ML Normal 30.0-100. 0 2 Hemoglobin A1c 04/05/2020 [facility] ce nter [address] [place] [address] [phone] Hemoglobin A1c 5.7 % Normal 3 Estimated Average Glucose 117 mg/dL High 60-110 Comprehensive Metabolic Profil 01/11/2020 [facility] Outpa tient Testing (Registration) [address] [place] [address] [id number] [phone] Glucose, Fasting 97 mg/dL Normal 70-100 Blood Urea Nitrogen 19 mg/dL High 7-18 Creatinine For GFR 0.74 mg/dL Normal 0.55-1.30 Glomerular Filtration Rate > 60.0 Normal >58 4 Sodium Level 138 mEq/L Normal 136-145 Potassium Serum 4.0 mEq/L Normal 3.5-5.1 Chloride Level 104 mEq/L Normal 98-107 Carbon Dioxide Level 27 mEq/L Normal 21-32 Anion Gap 7 mEq/L Low 8-16 Calcium Level 8.9 mg/dL Normal 8.5-10.1 Ast/Sgot 19 U/L Normal 7-37 Alt/SGPT 21 U/L Normal 12-78 Alkaline Phosphatase 132 U/L High 45-117 Bilirubin,Total 0.4 mg/dL Normal 0.2-1.0 Total Protein 7.4 GM/DL Normal 6.4-8.2 Albumin 4.1 GM/DL Normal 3.2-5.2 Albumin/Globulin Ratio 1.2 Normal 1.2-2.2 Hemoglobin A1c 01/11/2020 [facility] Outpatient Testi ng (Registration) [address] [place] [address] [id number] [phone] Hemoglobin A1c 5.9 % Normal 5 Estimated Average Glucose 123 mg/dL High 60-110 Comprehensive Metabolic Profil 10/17/[address] [address] [phone] Glucose, Fasting 106 mg/dL High 70-100 Blood Urea Nitrogen 14 mg/dL Normal 7-18 Creatinine For GFR 0.78 mg/dL Normal 0.55-1.30 Glomerular Filtration Rate > 60.0 Normal >58 6 Sodium Level 138 mEq/L Normal 136-145 Potassium Serum 3.9 mEq/L Normal 3.5-5.1 Chloride Level 101 mEq/L Normal 98-107 Carbon Dioxide Level 32 mEq/L Normal 21-32 Anion Gap 5 mEq/L Low 8-16 Calcium Level 8.8 mg/dL Normal 8.5-10.1 Ast/Sgot 13 U/L Normal 7-37 Alt/SGPT 21 U/L Normal 12-78 Alkaline Phosphatase 126 U/L High 45-117 Bilirubin,Total 0.5 mg/dL Normal 0.2-1.0 Total Protein 7.5 GM/DL Normal 6.4-8.2 Albumin 4.1 GM/DL Normal 3.2-5.2 Albumin/Globulin Ratio 1.2 Normal 1.2-2.2 Hemoglobin A1c 10/17/2019 [facility] [address] [place] [address] 1985364 [phone] Hemoglobin A1c 6.7 % Normal 7 Estimated Average Glucose 146 mg/dL High 60-110 Microalbumin Random 10/17/[address] [address] [phone] Creatinine, Urine 204.0 mg/dL Normal Malb Urine Siemens 13.8 mg/L Normal Isidro/Creat Ratio 6.7 MCG/MG Normal 0.0-30.0 8 FT4&TSH Panel 10/17/[address] [address] [phone] Thyroid Stimulating Hormone 1.320 uIU/ML Normal 0. 358-3.740 Free T4 0.97 ng/dL Normal 0.76-1.46 CBC With Differential 10/17/[address] [address] [phone] White Blood Count 7.8 10 Normal 4.0-10.0 Red Blood Count 4.58 10 Normal 4.00-5.40 Hemoglobin 14.0 g/dL Normal 12.0-15.5 Hematocrit 42.7 % Normal 36.0-47.0 Mean Corpuscular Volume 93.2 fl Normal 80.0-96.0 Mean Corpuscular Hemoglobin 30.6 pg Normal 27.0-33.0 Mean Corpuscular HGB Conc 32.8 g/dL Normal 32.0-36.5 Red Cell Distribution Width 11.9 % Normal 11.5-14.5 Platelet Count, Automated 281 10 Normal 150-450 Neutrophils % 65.3 % Normal 36.0-66.0 Lymph % 24.0 % Normal 24.0-44.0 Henry % 6.6 % High 0.0-5.0 Eos % 2.7 % Normal 0.0-3.0 Baso % 0.9 % Normal 0.0-1.0 Immature Granulocyte % 0.5 % Normal 0-3.0 Nucleated Red Blood Cell % 0.0 % Normal 0-0 Neutrophils # 5.1 10 Normal 1.5-8.5 Lymph # 1.9 10 Normal 1.5-5.0 Henry # 0.5 10 Normal 0.0-0.8 Eos # 0.2 10 Normal 0.0-0.5 Baso # 0.1 10 Normal 0.0-0.2 Laboratory test finding 10/17/[address] [address] [phone] Ferritin 111 NG/ML Normal 8-252 9 Total Iron Binding Capacit 10/17/[address] [address] [phone] Iron (Fe) 113 g/dL Normal 50-170 Total Iron Binding Capacity 296 g/dL Normal 250-450 Percent Saturation 38.2 % Normal 13.2-45.0 Lipid Panel 10/17/2019 [facility] [address] [address] [place] [address] [phone] Triglycerides Level 120 mg/dL Normal <150 Cholesterol Level 144 mg/dL Normal <200 HDL Cholesterol 49 mg/dL Normal >40 LDL Cholesterol 71 mg/dL Normal <100 Non-HDL-C 95 mg/dL Normal Cholesterol Risk Ratio 2.938 Normal <5 Laboratory test finding 10/17/[address] [address] [phone] Total 25(Oh) Vitamin D 122.5 NG/ML High 30.0-100 .0 10 1 Units are mL/min/1.73 m2 Chronic Kidney Disease Staging per NKF: Stage I & II GFR >=60 Normal to Mildly Decreased Stage III GFR 30-59 Moderately Decreased Stage IV GFR 15-29 Severely Decreased Stage V GFR <15 Very Little GFR Left ESRD GFR <15 on NEWSPAPER PUBLISHER 2 note:<nlbl:demographic_chang ed> 3 REFERENCE RANGES: <=5.6% NORMAL 5.7-6.4% SUGGESTS IMPAIRED GLUCOSE META BOLISM/PREDIABETIC >= 6.5% ABNORMAL 4 Units are mL/min/1.73 m2 Chronic Kidney Disease Staging per NKF: Stage I & II GFR >=60 Normal to Mildly Decreased Stage III GFR 30-59 Moderately Decreased Stage IV GFR 15-29 Severely Decreased Stage V GFR <15 Very Little GFR Left ESRD GFR <15 on NEWSP[employer]ER PUBLISHER 5 REFERENCE RANGES: <=5.6% NORMAL 5.7-6.4% SUGGESTS IMPAIRED GLUCOSE META BOLISM/PREDIABETIC >= 6.5% ABNORMAL 6 Units are mL/min/1.73 m2 Chronic Kidney Disease Staging per NKF: Stage I & II GFR >=60 Normal to Mildly Decreased Stage III GFR 30-59 Moderately Decreased Stage IV GFR 15-29 Severely Decreased Stage V GFR <15 Very Little GFR Left ESRD GFR <15 on NEWSP[employer]ER PUBLISHER 7 REFERENCE RANGES: 4.5-5.6% NORMAL 5.7-6.4% SUGGESTS IMPAIRED GLUCOSE META BOLISM >= 6.5% ABNORMAL 8 THE [employer] ATION STATES THAT MICROALBUMINURIA IS PRESENT IF THE MICROALBUMIN/CREATININE RATIO EXCEEDS 30 MCG/MG. THE THRESHOLD FOR CLINICAL ALBUMINURIA IS REACHED AT 300 MCG/MG. THE CLASSIFICATION OF A PATIENT SHOULD BE BASED UPON AT LEAST 2 OF 3 ABNORMAL RESULTS ON SPECIMENS COLLECTED WITHIN A 3 TO 6 MONTH TIME FRAME. 9 note:<nlbl:demographic_chang ed> note:<nlbl:demographic_changed> 10 note:<nlbl:demographic_chang ed> note:<nlbl:demographic_changed> Procedures Date Code Description Status 11/03/2019 [id number] Mammogram Completed 10/25/2018 [id number] Mammogram Completed Medical Devices Description No Information Available Encounters Type Date Location Provider Dx Diagnosis Office Visit 01/05/2020 4:00p Family Medicine [facility] MILADYS Moyer E11.9 Type 2 diabetes mellitus wit hout complications E03.9 Hypothyroidism, unspecified I10 Essential (primary) hyperten cabrera K21.9 Gastro-esophageal reflux dis ease without esophagitis F41.1 Generalized anxiety disorder E78.49 Other hyperlipidemia D50.9 Iron deficiency anemia, unsp ecified Z23 Encounter for immunization Assessments Date Code Description Provider 04/11/2020 E11.9 Type 2 diabetes mellitus without complications MILADYS Moyer 04/11/2020 E03.9 Hypothyroidism, unspecified MILADYS Llanes 04/11/2020 I10 Essential (primary) hypertension MILADYS Moyer 04/11/2020 F41.1 Generalized anxiety disorder MILADYS Oakley 04/11/2020 Z79.899 Other penitentiary (current) drug t herapy MILADYS Moyer 04/11/2020 Z79.84 manager long term care (current) use of oral hypoglycemic drugs MILADYS Moyer 01/05/2020 E11.9 Type 2 diabetes mellitus without complications MILADYS Moyer 01/05/2020 E03.9 Hypothyroidism, unspecified John MILADYS Atkinson 01/05/2020 I10 Essential (primary) hypertension MILADYS Moyer 01/05/2020 K21.9 Gastro-esophageal reflux disease without esophagitis MILADYS Moyer 01/05/2020 F41.1 Generalized anxiety disorder John MILADYS Cleaning 01/05/2020 E78.49 Other hyperlipidemia MILADYS Navarro 01/05/2020 D50.9 Iron deficiency anemia, unspecif ied MILADYS Moyer 01/05/2020 Z23 Encounter for immunization MILADYS Wellington Plan of Treatment Future Appointment(s):* 10/15/2020 10:20 am - MILADYS Moyer at [facility] 04/11/2020 - MILADYS Moyer* E11.9 Type 2 diabetes mellitus without complications* New Labs:* CBC With Differential, Scheduled: 10/09/20 * Comprehensive Metabolic Profil, Scheduled: 10/09/20 * Ferritin, Scheduled: 10/09/20 * Total Iron Binding Capacit, Scheduled: 10/09/20 * Hemoglobin A1c, Scheduled: 10/09/20 * Lipid Panel, Scheduled: 10/09/20 * Microalbumin Random, Scheduled: 10/09/20 * Vitamin D 25-Hydroxy, Scheduled: 10/09/20 * FT4&TSH Panel, Scheduled: 10/09/20 * Follow up:* 6 month * E03.9 Hypothyroidism, unspecified * I10 Essential (primary) hypertension * F41.1 Generalized anxiety disorder * Z79.899 Other buttermaker continuous churn (current) drug therapy * Z79.84 custodial (current) use of oral hypoglycemic drugs Functional Status Description No Information Available Mental Status Description No Information Available Referrals Description No Information Available
--- OUTSIDE RECORDS SUMMARY | 2020-05-31 17:14 | CCD | Continuity of Care Document ---
Author Author Yulisa STORY PA Organization Unknown Address [address] [place] [address] Phone [phone] Care Team Providers Care Stone Cutter Name Role Phone Mariana Ng DO AUTM [employer] AUTM [phone] Problems Active Problems Provider Date Hypothyroidism Onset: Anxiety state Onset: Social History Type Date Description Comments Sex Unknown ETOH Use Denies alcohol use Tobacco Use Start: Unknown No Smoking Status Reviewed: 04/09/20 No Allergies, Adverse Reactions, Alerts Description No Known Drug Allergies Medications Active Medications SIG Qnty Indications Ordering Provide r Date Ondansetron 4mg Tablets Dispers dissolve 1 tablet in mouth every 8 hours as needed for nausea 15tabs R11.2 Rj Mims JR., M.D. 01/26/2020 Effexor 75mg & 150mg qd Unknown Synthroid .50mcg&.75mcg a lternate days Unknown Prilosec 40mg Capsules DR qd 30caps Unknown Clonazepam 0.5mg Tablets bid Unknown Metformin HCL ER 750mg Tablets ER 24HR qd Unknown Irbesartan Unknown Victoza 18mg/3ML Solution Pen-Inject Unknown Atorvastatin Calcium Unknown Medications Administered in Office Medication SIG Qnty Indications Ordering Provider Date Phenergan/Promethazine Hci Injection To 50 MG Injection Alayna Jacinto 03/05/2010 Immunizations CPT Code Status Date Vaccine Reaction Lot # [id number] Given 01/23/2017 Influenza Virus Vaccine, Quadrivalent, Split Virus, Im Use [id number] 24896 Given 07/16/2016 Tdap/Tetanus, Di phth Toxoids/Acellular Pertussis Vac 7Yr [place] > [address] Given 09/29/2015 PPD- TB Intradermal Test PPD negative. 0 mm of induration.Janiya AL 10/01/15 [id number] 64189 Given 12/22/2014 PPD- TB Intradermal Test ppd negative 0 mm of induration Janiya AL 12/24/14 [id number] 93140 Given 01/28/2011 PPD- TB Intradermal Test neg ative,read by MILADYS Alarcon 01-30-11 564215 58607 Given 04/03/2009 PPD- TB Intradermal Test Vital Signs Date Vital Result Comment 04/09/2020 2:09pm BP Systolic 128 mmHg BP Diastolic 83 mmHg Heart Rate 96 /min Respiratory Rate 15 /min O2 % BldC Oximetry 98 % Body Temperature 98.6 F Weight 165.00 lb Height 65 inches 5'5" BMI (Body Mass Index) 27.5 kg/m2 01/26/2020 10:53am BP Systolic 133 mmHg BP Diastolic 88 mmHg Heart Rate 110 /min Respiratory Rate 16 /min O2 % BldC Oximetry 98 % Body Temperature 98.4 F Weight 172.00 lb Height 65 inches 5'5" BMI (Body Mass Index) 28.6 kg/m2 Pain Level 2 Results Test Acquired Date Facility Test Result H/L Range Note Laboratory test finding 04/09/2020 [place] [id number] [phone] Throat Culture <pending> Procedures Description No Information Available Medical Devices Description No Information Available Encounters Type Date Location Provider Dx Diagnosis Office Visit 04/09/2020 2:15p Main Office MILADYS Alston J02 .9 Acute pharyngitis, unspecified Z20.828 Contact w and exposure to ot h viral communicable diseases Office Visit 01/26/2020 10:45a Main Office MILADYS Alston R11 .2 Nausea with vomiting, unspecified Z20.828 Contact w and exposure to ot h viral communicable diseases Office Visit 12/29/2019 4:50p Main Office Mika Petersen, P.Javed J0 6.9 Acute upper respiratory infection, unspecified Z20.828 Contact w and exposure to ot h viral communicable diseases Assessments Date Code Description Provider 04/09/2020 J02.9 Acute pharyngitis, unspecified M MILADYS Barr 04/09/2020 Z20.828 Contact with and (brown spected) exposure to other viral communicable diseases MILADYS Alston 01/26/2020 R11.2 Nausea with vomiting, unspecifie d MILADYS Alston 01/26/2020 Z20.828 Contact with and (brown spected) exposure to other viral communicable diseases MILADYS Alston 12/29/2019 J06.9 Acute upper respiratory infectio n, unspecified Mika Petersen, PSoniaASonia 12/29/2019 Z20.828 Contact with and (brown spected) exposure to other viral communicable diseases Mika Petersen PDoris Plan of Treatment No Information Available Functional Status Description No Information Available Mental Status Description No Information Available Referrals Description No Information Available
--- OUTSIDE RECORDS SUMMARY | 2020-05-31 17:14 | CCD ---
Continuity of Care Document (CCD) Created on: 04/09/2020 Yulisa Mancini External Reference #: [id number] : [id number] Sex: Female Author Author Yulisa STORY PA Organization Unknown Address [address] [place] [address] Phone [phone] Care Team Providers Care Certified Histologic Technician Name Role Phone Mariana Ng DO AUTM [phone] [employer] AUTM [phone] Problems Active Problems Provider Date Hypothyroidism Onset: [...] Code Status Date Vaccine Reaction Lot # [id number] Given 01/23/2017 Influenza Virus Vaccine, Quadrivalent, Split Virus, Im Use [id number] Given 07/16/2016 Tdap/Tetanus, Di phth Toxoids/Acellular Pertussis Vac 7Yr Or > 20097 Given 09/29/2015 PPD- TB Intradermal Test PPD negative. 0 mm of induration.Janiya AL 10/01/15 [id number] 70144 Given 12/22/2014 PPD- TB Intradermal Test ppd negative 0 mm of induration Janiya AL 12/24/14 [id number] 90198 Given 01/28/2011 PPD- TB Intradermal Test neg ative,read by MILADYS Alarcon 01-30-11 079717 08900 Given 04/03/2009 PPD- TB Intradermal Test Vital [...] H/L Range Note Laboratory test finding 04/09/2020 [place] [id number] [phone] Throat Culture <pending> Procedures Description No Information [...]
--- OUTSIDE RECORDS SUMMARY | 2020-05-31 17:14 | CCD | Continuity of Care Document ---
Author Author Yulisa STORY PA Organization Unknown Address [address] [place] [id number] Phone [phone] Care Team Providers Care Plasterer Spot Name Role Phone Mariana Ng DO AUTM [employer] AUTM [phone] Problems Active Problems Provider Date Hypothyroidism Onset: [...] Code Status Date Vaccine Reaction Lot # [id number] Given 01/23/2017 Influenza Virus Vaccine, Quadrivalent, Split Virus, Im Use [id number] 45450 Given 07/16/2016 Tdap/Tetanus, Di phth Toxoids/Acellular Pertussis Vac 7Yr Or > 71847 Given 09/29/2015 PPD- TB Intradermal Test PPD negative. 0 mm of induration.Janiya AL 10/01/15 675791 76729 Given 12/22/2014 PPD- TB Intradermal Test ppd negative 0 mm of induration Janiya AL 12/24/14 [id number] 79609 Given 01/28/2011 PPD- TB Intradermal Test neg ative,read by MILADYS Alarcon 01-30- 936557 24633 Given 04/03/2009 PPD- TB Intradermal Test Vital [...] H/L Range Note Laboratory test finding 04/09/2020 [place] [id number] [phone] Throat Culture FULL REPORT IN L <SEE NOTE> Normal 1, 2 1 no rX 2 FULL REPORT IN LAB NOTES ([facility] and [facility]). NORMAL GARY PRESENT Procedures Description No Information Available Medical Devices [...] diseases Office Visit 12/29/2019 4:50p Main Office Alayna Dixon J0 6.9 Acute upper respiratory infection, unspecified [...] J06.9 Acute upper respiratory infectio n, unspecified Alayna Dixon 12/29/2019 Z20.828 Contact with and (brown spected) exposure to other viral communicable diseases Alayna Dixon Plan of Treatment No Information Available Functional Status Description No Information Available Mental Status Description No Information Available Referrals Description No Information Available
--- OUTSIDE RECORDS SUMMARY | 2020-05-31 17:15 | CCD ---
Author Author [facility] Organization [facility] Address Unknown Phone Unavailable Care Team Providers Care Senior Policy Advisor Name Role Phone CHEYENNE LOBO PA Unavailable Unavailable YAMIL, CHEYENNE PA Unavailable Unavailable YAMIL, CHEYENNE PA Unavailable Unavailable YAMIL, CHEYENNE PA Unavailable Unavailable YAMIL, CHEYENNE PA Unavailable Unavailable YAMIL, CHEYENNE PA Unavailable Unavailable YAMIL, CHEYENNE PA Unavailable Unavailable YAMIL, CHEYENNE PA Unavailable Unavailable YAMIL, CHEYENNE PA Unavailable Unavailable YAMIL, CHEYENNE PA Unavailable Unavailable YAMIL, CHEYENNE PA Unavailable Unavailable YAMIL, CHEYENNE PA Unavailable Unavailable YAMIL, CHEYENNE PA Unavailable Unavailable YAMIL, CHEYENNE PA Unavailable Unavailable YAMIL, CHEYENNE PA Unavailable Unavailable YAMIL, CHEYENNE PA Unavailable Unavailable YAMIL, CHEYENNE PA Unavailable Unavailable YAMIL, CHEYENNE PA Unavailable Unavailable YAMIL, CHEYENNE PA Unavailable Unavailable YAMIL, CHEYENNE PA Unavailable Unavailable YAMIL, CHEYENNE PA Unavailable Unavailable YAMIL, CHEYENNE PA Unavailable Unavailable YAMIL, CHEYENNE PA Unavailable Unavailable YAMIL, CHEYENNE PA Unavailable Unavailable YAMIL, CHEYENNE PA Unavailable Unavailable YAMIL, CHEYENNE PA Unavailable Unavailable YAMIL, CHEYENNE PA Unavailable Unavailable YAMIL, CHEYENNE PA Unavailable Unavailable YAMIL, CHEYENNE PA Unavailable Unavailable YAMIL, CHEYENNE PA Unavailable Unavailable YAMIL, CHEYENNE PA Unavailable Unavailable YAMIL, CHEYENNE PA Unavailable Unavailable YAMIL, CHEYENNE PA Unavailable Unavailable YAMIL, CHEYENNE PA Unavailable Unavailable YAMIL, CHEYENNE PA Unavailable Unavailable YAMIL, CHEYENNE PA Unavailable Unavailable YAMIL, CHEYENNE PA Unavailable Unavailable YAMIL, CHEYENNE PA Unavailable Unavailable YAMIL, CHEYENNE PA Unavailable Unavailable TAYLOR-MIKE, SHIRA DO Unavailable Unavailable TAYLOR-MIKE, SHIRA DO Unavailable Unavailable TAYLOR-MIKE, SHIRA DO Unavailable Unavailable TAYLOR-MIKE, SHIRA DO Unavailable Unavailable TAYLOR-MIKE, SHIRA DO Unavailable Unavailable TAYLOR-MIKE, SHIRA DO Unavailable Unavailable TAYLOR-MIKE, SHIRA DO Unavailable Unavailable TAYLOR-MIKE, SHIRA DO Unavailable Unavailable TAYLOR-MIKE, SHIRA DO Unavailable Unavailable TAYLOR-MIKE, SHIRA DO Unavailable Unavailable TAYLOR-MIKE, SHIRA DO Unavailable Unavailable TAYLOR-MIKE, SHIRA DO Unavailable Unavailable TAYLOR-MIKE, SHIRA DO Unavailable Unavailable TAYLOR-MIKE, SHIRA DO Unavailable Unavailable TAYLOR-MIKE, SHIRA DO Unavailable Unavailable TAYLOR-MIKE, SHIRA DO Unavailable Unavailable TAYLOR-MIKE, SHIRA DO Unavailable Unavailable TAYLOR-MIKE, SHIRA DO Unavailable Unavailable TAYLOR-MIKE, SHIRA DO Unavailable Unavailable TAYLOR-MIKE, SHIRA DO Unavailable Unavailable TAYLOR-MIKE, SHIRA DO Unavailable Unavailable TAYLOR-MIKE, SHIRA DO Unavailable Unavailable TAYLOR-MIKE, SHIRA DO Unavailable Unavailable TAYLOR-MIKE, SHIRA DO Unavailable Unavailable TAYLOR-MIKE, SHIRA DO Unavailable Unavailable TAYLOR-MIKE, SHIRA DO Unavailable Unavailable TAYLOR-MIKE, SHIRA DO Unavailable Unavailable TAYLOR-MIKE, SHIRA DO Unavailable Unavailable TAYLOR-MIKE, SHIRA DO Unavailable Unavailable TAYLOR-MIKE, SHIRA DO Unavailable Unavailable TAYLOR-MIKE, SHIRA DO Unavailable Unavailable TAYLOR-MIKE, SHIRA DO Unavailable Unavailable TAYLOR-MIKE, SHIRA DO Unavailable Unavailable TAYLOR-MIKE, SHIRA DO Unavailable Unavailable TAYLOR-MIKE, SHIRA DO Unavailable Unavailable TAYLOR-MIKE, SHIRA DO Unavailable Unavailable TAYLOR-MIKE, SHIRA DO Unavailable Unavailable TAYLOR-MIKE, SHIRA DO Unavailable Unavailable TAYLOR-MIKE, SHIRA DO Unavailable Unavailable TAYLOR-MIKE, SHIRA DO Unavailable Unavailable TAYLOR-MIKE, SHIRA DO Unavailable Unavailable TAYLOR-MIKE, SHIRA DO Unavailable Unavailable TAYLOR-MIKE, SHIRA DO Unavailable Unavailable TAYLOR-MIKE, SHIRA DO Unavailable Unavailable TAYLOR-MIKE, SHIRA DO Unavailable Unavailable TAYLOR-MIKE, SHIRA DO Unavailable Unavailable TAYLOR-MIKE, SHIRA DO Unavailable Unavailable TAYLOR-MIKE, SHIRA DO Unavailable Unavailable TAYLOR-MIKE, SHIRA DO Unavailable Unavailable TAYLOR-MIKE, SHIRA DO Unavailable Unavailable TAYLOR-MIKE, SHIRA DO Unavailable Unavailable TAYLOR-MIKE, SHIRA DO Unavailable Unavailable TAYLOR-MIKE, SHIRA DO Unavailable Unavailable TAYLOR-MIKE, SHIRA DO Unavailable Unavailable TAYLOR-MIKE, SHIRA DO Unavailable Unavailable TAYLOR-MIKE, SHIRA DO Unavailable Unavailable TAYLOR-MIKE, SHIRA DO Unavailable Unavailable TAYLOR-MIKE, SHIRA DO Unavailable Unavailable TAYLOR-MIKE, SHIRA DO Unavailable Unavailable TAYLOR-MIKE, SHIRA DO Unavailable Unavailable TAYLOR-MIKE, SHIRA DO Unavailable Unavailable TAYLOR-MIKE, SHIRA DO Unavailable Unavailable TAYLOR-MIKE, SHIRA DO Unavailable Unavailable TAYLOR-MIKE, SHIRA DO Unavailable Unavailable TAYLOR-MIKE, SHIRA DO Unavailable Unavailable TAYLOR-MIKE, SHIRA DO Unavailable Unavailable TAYLOR-MIKE, SHIRA DO Unavailable Unavailable TAYLOR-MIKE, SHIRA DO Unavailable Unavailable TAYLOR-MIKE, SHIRA DO Unavailable Unavailable TAYLOR-MIKE, SHIRA DO Unavailable Unavailable TAYLOR-MIKE, SHIRA DO Unavailable Unavailable TAYLOR-MIKE, SHIRA DO Unavailable Unavailable TAYLOR-MIKE, SHIRA DO Unavailable Unavailable TAYLOR-MIKE, SHIRA DO Unavailable Unavailable TAYLOR-MIKE, SHIRA DO Unavailable Unavailable TAYLOR-MIKE, SHIRA DO Unavailable Unavailable TAYLOR-MIKE, SHIRA DO Unavailable Unavailable TAYLOR-MIKE, SHIRA DO Unavailable Unavailable TAYLOR-MIKE, SHIRA DO Unavailable Unavailable TAYLOR-MIKE, SHIRA DO Unavailable Unavailable TAYLOR-MIKE, SHIRA DO Unavailable Unavailable TAYLOR-MIKE, SHIRA DO Unavailable Unavailable O'carlos, A Marcelino PA Unavailable Unavailable O'carlos, A Marcelino PA Unavailable Unavailable O'carlos, A Marcelino PA Unavailable Unavailable O'carlos, A Marcelino PA Unavailable Unavailable O'carlos, A Marcelino PA Unavailable Unavailable O'carlos, A Marcelino PA Unavailable Unavailable O'carlos, A Marcelino PA Unavailable Unavailable O'carlos, A Marcelino PA Unavailable Unavailable O'carlos, A Marcelino PA Unavailable Unavailable O'carlos, A Marcelino PA Unavailable Unavailable O'carlos, A Marcelino PA Unavailable Unavailable O'carlos, A Marcelino PA Unavailable Unavailable O'carlos, A Marcelino PA Unavailable Unavailable O'carlos, A Marcelino PA Unavailable Unavailable O'carlos, A Marcelino PA Unavailable Unavailable O'carlos, A Marcelino PA Unavailable Unavailable O'carlos, A Marcelino PA Unavailable Unavailable O'carlos, A Marcelino PA Unavailable Unavailable O'carlos, A Marcelino PA Unavailable Unavailable O'carlos, A Marcelino PA Unavailable Unavailable O'carlos, A Marcelino PA Unavailable Unavailable O'carlos, A Marcelino PA Unavailable Unavailable O'carlos, A Marcelino PA Unavailable Unavailable O'carlos, A Marcelino PA Unavailable Unavailable O'carlos, A Marcelino PA Unavailable Unavailable O'carlos, A Marcelino PA Unavailable Unavailable O'carlos, A Marcelino PA Unavailable Unavailable O'carlos, A Marcelino PA Unavailable Unavailable O'carlos, A Marcelino PA Unavailable Unavailable O'carlos, A Marcelino PA Unavailable Unavailable O'carlos, A Marcelino PA Unavailable Unavailable O'carlos, A Marcelino PA Unavailable Unavailable O'carlos, A Marcelino PA Unavailable Unavailable LETTIERE, A MARCELINO PA Unavailable Unavailable LETTIERE, A MARCELINO PA Unavailable Unavailable LETTIERE, A MARCELINO PA Unavailable Unavailable LETTIERE, A MARCELINO PA Unavailable Unavailable LETTIERE, A MARCELINO PA Unavailable Unavailable LETTIERE, A MARCELINO PA Unavailable Unavailable LETTIERE, A MARCELINO PA Unavailable Unavailable LETTIERE, A MARCELINO PA Unavailable Unavailable LETTIERE, A MARCELINO PA Unavailable Unavailable LETTIERE, A MARCELINO PA Unavailable Unavailable LETTIERE, A MARCELINO PA Unavailable Unavailable LETTIERE, A MARCELINO PA Unavailable Unavailable LETTIERE, A MARCELINO PA Unavailable Unavailable LETTIERE, A MARCELINO PA Unavailable Unavailable LETTIERE, A MARCELINO PA Unavailable Unavailable LETTIERE, A MARCELINO PA Unavailable Unavailable LETTIERE, A MARCELINO PA Unavailable Unavailable LETTIERE, A MARCELINO PA Unavailable Unavailable LETTIERE, A MARCELINO PA Unavailable Unavailable LETTIERE, A MARCELINO PA Unavailable Unavailable LETTIERE, A MARCELINO PA Unavailable Unavailable LETTIERE, A MARCELINO PA Unavailable Unavailable LETTIERE, A MARCELINO PA Unavailable Unavailable LETTIERE, A MARCELINO PA Unavailable Unavailable LETTIERE, A MARCELINO PA Unavailable Unavailable LETTIERE, A MARCELINO PA Unavailable Unavailable LETTIERE, A MARCELINO PA Unavailable Unavailable LETTIERE, A MARCELINO PA Unavailable Unavailable LETTIERE, A MARCELINO PA Unavailable Unavailable Re-disclosure Warning The records that you are about to access may contain information from federally-assisted alcohol or drug abuse programs. If such information is present, then the following federally mandated warning applies: This information has been disclosed to you from records protected by federal confidentiality rules (42 CFR part 2). The federal rules prohibit you from making any further disclosure of this information unless further disclosure is expressly permitted by the written consent of the person to whom it pertains or as otherwise permitted by 42 CFR part 2. A general authorization for the release of medical or other information is NOT sufficient for this purpose. The Federal rules restrict any use of the information to criminally investigate or prosecute any alcohol or drug abuse patient.The records that you are about to access may contain highly sensitive health information, the redisclosure of which is protected by Article 27-F of the [facility] Public Health law. If you continue you may have access to information: Regarding HIV / AIDS; Provided by facilities licensed or operated by the [facility] Office of Mental Health; or Provided by the [facility] Office for People With Developmental Disabilities. If such information is present, then the following [facility] mandated warning applies: This information has been disclosed to you from confidential records which are protected by state law. State law prohibits you from making any further disclosure of this information without the specific written consent of the person to whom it pertains, or as otherwise permitted by law. Any unauthorized further disclosure in violation of state law may result in a fine or care home sentence or both. A general authorization for the release of medical or other information is NOT sufficient authorization for further disc losure. Family History Family Member Name Family Member Gender Family Member Status Date o f Status Description Data Source(s) Unknown Male Problem [facility] ([facility]) Unknown Male Problem [facility] ([facility]) Unknown Male Problem [facility] ([facility]) Encounters Encounter Providers Location Date Indications Data Source(s ) Outpatient Attender: Marcelino HOOK Family [facility] 05/31/2020 03:15:00 PM EST [facility] ([facility]) Outpatient Attender: Marcelino HOOK Family [facility] 04/11/2020 10:20:00 AM EST MED[facility] ([facility]) Outpatient Attender: MARCELINO [facility] 04/09/2020 01:15:00 PM EST [facility] ([facility] Outpatient Attender: MARCELINO [facility] 01/26/2020 10:45:00 AM EDT [facility] ([facility]) Outpatient Attender: Marcelino HOOK [facility] 01/05/2020 04:00:00 PM EDT MEDENT ([facility]) Outpatient Attender: CHEYENNE [facility] 12/29/2019 04:50:00 PM EDT MED[facility] ([facility]) Outpatient Attender: SHIRA LANE DO [facility] 10/05/2019 08:30:00 AM EDT [facility] ([facility]) Outpatient Attender: Marcelino HOOK [facility] 07/04/2019 09:30:00 AM EDT MED[facility] ([facility]) Outpatient Attender: Marcelino HOOK [facility] 04/04/2019 08:00:00 AM EST MED[facility] ([facility]) Immunizations Vaccine Date Status Description Data Source(s) New in 2011. IIV4 01/05/2020 04:49:00 PM EDT completed MED[facility] ([facility]) Medications Medication Brand Name Start Date Product Form Dose Route Admi nistrative Instructions Pharmacy Instructions Status Indications Reaction Description Data Source(s) 24 HR venlafaxine 150 MG Extended Release Oral Capsule Venla faxine HCL ER 05/28/2020 12:00:00 AM EST active MED[facility] ([facility]) Metformin hydrochloride 1000 MG Oral Tablet 1,000 mg METFORM IN HCL 05/25/2020 12:00:00 AM EST tablet 180 TAKE ONE TABLET BY MOUTH TWICE A DAY WITH FOOD TAKE ONE TABLET BY MOUTH TWICE A DAY WITH FOOD SOLD: 05/28/2020 [facility] 20 mg 05/25/2020 12:00:00 AM EST capsule,delayed release (DR/EC) 90 TAKE 1 CAPSULE BY MOUTH EVERY DAY TAKE 1 CAPSULE BY MOUTH EVERY DAY SOLD: 05/28/2020 [facility] 0.5 mg 04/23/2020 12:00:00 AM EST tablet 60 TAKE ONE TABLET BY MOUTH TWICE A DAY MAXIMUM DAILY DOSE = 2 TABLETS TAKE ONE TABLET BY MOUTH TWICE A DAY MAX IMUM DAILY DOSE = 2 TABLETS SOLD: 04/24/2020 [facility] 75 mcg 04/11/2020 12:00:00 AM EST tablet 90 TAKE 1 TAB.BY MOUTH EVERY A.M.ON AN EMPTY STOMACH, DONT EAT FOR 1 HR AFTER TAKING TAKE 1 TAB.BY MOUTH EVERY A.M.ON AN EMPTY STOMACH, DONT EAT FOR 1 HR AFTER TAKING SOLD: 04/14/2020 [facility] Levothyroxine Sodium 0.075 MG Oral Tablet [Synthroid] Synthr oid 04/01/2020 12:00:00 AM EST ORAL active M EDENT ([facility]) 0.5 mg 03/13/2020 12:00:00 AM EST tablet 60 TAKE ONE TABLET BY MOUTH TWICE A DAY MAXIMUM DAILY DOSE = 2 TAKE ONE TABLET BY MOUTH TWICE A DAY MAX IMUM DAILY DOSE = 2 SOLD: 03/14/2020 [facility] atorvastatin 20 MG Oral Tablet ATORVASTATIN CALCIUM 02/16/2020 1 2:00:00 AM EST tablet 90 TAKE 1 TABLET BY MOUTH EVERY NIG HT TAKE 1 TABLET BY MOUTH EVERY NIGHT SOLD: 05/19/2020 [facility] atorvastatin 20 MG Oral Tablet ATORVASTATIN CALCIUM 02/16/2020 1 2:00:00 AM EST tablet 90 TAKE 1 TABLET BY MOUTH EVERY NIG HT TAKE 1 TABLET BY MOUTH EVERY NIGHT SOLD: 02/20/2020 [facility] Ondansetron 4 MG Disintegrating Oral Tablet Ondansetron 01/26/2020 12:00:00 AM EDT active MED[facility] ([facility]) 150 mg 01/26/2020 12:00:00 AM EDT tablet 90 TAKE ONE TABLET BY MOUTH EVERY DAY TAKE ONE TABLET BY MOUTH EVERY DAY SOLD: 04/24/2020 [facility] 150 mg 01/26/2020 12:00:00 AM EDT tablet 90 TAKE ONE TABLET BY MOUTH EVERY DAY TAKE ONE TABLET BY MOUTH EVERY DAY SOLD: 01/30/2020 [facility] Levothyroxine Sodium 0.075 MG Oral Tablet Levothyroxine Sodi um 01/05/2020 12:00:00 AM EDT completed [facility] ([facility]) Immunization Administration Single Or Combination 01/05/2020 12:00:00 AM EDT completed [facility] ([facility]) Medication administered onsite 0.5 mg 12/28/2019 12:00:00 AM EDT tablet 60 TAKE ONE TABLET BY MOUTH TWICE A DAY MAXIMUM DAILY DOSE = 2 TAKE ONE TABLET BY MOUTH TWICE A DAY MAX IMUM DAILY DOSE = 2 SOLD: 12/31/2019 [facility] 150 mg 11/28/2019 12:00:00 AM EDT capsule,extended releas e 24hr 90 TAKE ONE CAPSULE BY MOUTH ONCE A DAY TAKE ONE CAPSULE BY MOUTH ONCE A DAY SOLD: 11/28/2019 [facility] 150 mg 11/28/2019 12:00:00 AM EDT capsule,extended releas e 24hr 90 TAKE ONE CAPSULE BY MOUTH ONCE A DAY TAKE ONE CAPSULE BY MOUTH ONCE A DAY SOLD: 02/28/2020 [facility] 20 mg 11/21/2019 12:00:00 AM EDT capsule,delayed release (DR/EC) 90 TAKE 1 CAPSULE BY MOUTH EVERY DAY TAKE 1 CAPSULE BY MOUTH EVERY DAY SOLD: 11/28/2019 [facility] Metformin hydrochloride 1000 MG Oral Tablet 1,000 mg METFORM IN HCL 11/21/2019 12:00:00 AM EDT tablet 180 TAKE ONE TABLET BY MOUTH TWICE A DAY WITH FOOD TAKE ONE TABLET BY MOUTH TWICE A DAY WITH FOOD SOLD: 02/27/2020 [facility] 1,000 mg 11/21/2019 12:00:00 AM EDT tablet 180 TAKE ONE TABLET BY MOUTH TWICE A DAY WITH FOOD TAKE ONE TABLET BY MOUTH TWICE A DAY WITH FOOD SOLD: 11/28/2019 [facility] 20 mg 11/21/2019 12:00:00 AM EDT capsule,delayed release (DR/EC) 90 TAKE 1 CAPSULE BY MOUTH EVERY DAY TAKE 1 CAPSULE BY MOUTH EVERY DAY SOLD: 02/27/2020 [facility] 32 gauge x 1/4" 11/17/2019 12:00:00 AM EDT needle 100 TO BE USED WITH VICTOZA PEN ONCE A DAY TO BE USED WITH VICTOZA PEN ONCE A DAY SOLD: 03/03/2020 [facility] 32 gauge x 1/4" 11/17/2019 12:00:00 AM EDT needle 100 TO BE USED WITH VICTOZA PEN ONCE A DAY TO BE USED WITH VICTOZA PEN ONCE A DAY SOLD: 11/20/2019 [facility] 0.5 mg 11/10/2019 12:00:00 AM EDT tablet 60 TAKE ONE TABLET BY MOUTH TWICE A DAY MAXIMUM DAILY DOSE = TWO TABLETS TAKE ONE TABLET BY MOUTH TWICE A DAY MAXIMUM DAILY DOSE = TWO TABLETS SOLD: 11/15/2019 [facility] 75 mcg 10/01/2019 12:00:00 AM EDT tablet 90 1 TAB.BY MOUTH EACH A.M. ON EMPTY STOMACH DO NOT EAT 1HR AFTER TAKING 1 TAB.BY MOUTH EACH A.M. ON EMPTY STOMACH DO NOT EAT 1HR AFTER TAKING SOLD: 12/31/2019 [facility] 75 mcg 10/01/2019 12:00:00 AM EDT tablet 90 1 TAB.BY MOUTH EACH A.M. ON EMPTY STOMACH DO NOT EAT 1HR AFTER TAKING 1 TAB.BY MOUTH EACH A.M. ON EMPTY STOMACH DO NOT EAT 1HR AFTER TAKING SOLD: 10/03/2019 [facility] 0.5 mg 09/12/2019 12:00:00 AM EDT tablet 60 TAKE 1 TABLET BY MOUTH TWICE A DAY MAX DAILY DOSE = 2 TABLETS TAKE 1 TABLET BY MOUTH TWICE A DAY MAX D AILY DOSE = 2 TABLETS SOLD: 09/13/2019 [facility] atorvastatin 20 MG Oral Tablet ATORVASTATIN CALCIUM 08/26/2019 1 2:00:00 AM EDT tablet 90 TAKE 1 TABLET BY MOUTH EVERY NIG HT TAKE 1 TABLET BY MOUTH EVERY NIGHT SOLD: 08/30/2019 [facility] atorvastatin 20 MG Oral Tablet ATORVASTATIN CALCIUM 08/26/2019 1 2:00:00 AM EDT tablet 90 TAKE 1 TABLET BY MOUTH EVERY NIG HT TAKE 1 TABLET BY MOUTH EVERY NIGHT SOLD: 11/20/2019 [facility] 0.6 mg/0.1 mL (18 mg/3 mL) 08/17/2019 12:00:00 AM EDT pen in jector 27 INJECT 1.8MG UNDER THE SKIN DAILY INJECT 1.8MG UNDER THE SKIN DAILY SOLD: 03/03/2020 [facility] 0.6 mg/0.1 mL (18 mg/3 mL) 08/17/2019 12:00:00 AM EDT pen in jector 27 INJECT 1.8MG UNDER THE SKIN DAILY INJECT 1.8MG UNDER THE SKIN DAILY SOLD: 08/18/2019 [facility] 0.6 mg/0.1 mL (18 mg/3 mL) 08/17/2019 12:00:00 AM EDT pen in jector 27 INJECT 1.8MG UNDER THE SKIN DAILY INJECT 1.8MG UNDER THE SKIN DAILY SOLD: 11/16/2019 [facility] 0.5 mg 08/06/2019 12:00:00 AM EDT tablet 60 TAKE 1 TABLET BY MOUTH TWICE DAILY MAXIMUM DAILY DOSE = 2 TABLETS TAKE 1 TABLET BY MOUTH TWICE DAILY MAXIM UM DAILY DOSE = 2 TABLETS SOLD: 08/09/2019 [facility] 0.5 mg 06/27/2019 12:00:00 AM EDT tablet 60 TAKE ONE TABLET BY MOUTH TWICE A DAY , MAXIMUM DAILY DOSE = 2 TABLETS TAKE ONE TABLET BY MOUTH TWICE A DAY , MAXIMUM DAILY DOSE = 2 TABLETS SOLD: 06/29/2019 [facility] 1,250 mcg (50,000 unit) 06/21/2019 12:00:00 AM EDT capsule 12 TAKE 1 CAPSULE BY MOUTH WEEKLY TAKE 1 CAPSULE BY MOUTH WEEKLY SOLD: 09/16/2019 [facility] 1,250 mcg (50,000 unit) 06/21/2019 12:00:00 AM EDT capsule 12 TAKE 1 CAPSULE BY MOUTH WEEKLY TAKE 1 CAPSULE BY MOUTH WEEKLY SOLD: 06/25/2019 [facility] Ergocalciferol 54975 UNT Oral Capsule Vitamin D (Ergocalcife rol) 06/21/2019 12:00:00 AM EDT completed [facility] ([facility]) 20 mg 06/03/2019 12:00:00 AM EST capsule,delayed release (DR/EC) 90 TAKE 1 CAPSULE BY MOUTH EVERY DAY TAKE 1 CAPSULE BY MOUTH EVERY DAY SOLD: 06/06/2019 [facility] 20 mg 06/03/2019 12:00:00 AM EST capsule,delayed release (DR/EC) 90 TAKE 1 CAPSULE BY MOUTH EVERY DAY TAKE 1 CAPSULE BY MOUTH EVERY DAY SOLD: 08/25/2019 [facility] 1,000 mg 05/25/2019 12:00:00 AM EST tablet 180 TAKE ONE TABLET BY MOUTH TWICE A DAY WITH FOOD TAKE ONE TABLET BY MOUTH TWICE A DAY WITH FOOD SOLD: 08/25/2019 [facility] 0.5 mg 05/25/2019 12:00:00 AM EST tablet 60 TAKE 1 TABLET BY MOUTH TWICE A DAY MAXIMUM DAILY DOSE = 2 TABLETS TAKE 1 TABLET BY MOUTH TWICE A DAY MAXIM UM DAILY DOSE = 2 TABLETS SOLD: 05/26/2019 [facility] 1,000 mg 05/25/2019 12:00:00 AM EST tablet 180 TAKE ONE TABLET BY MOUTH TWICE A DAY WITH FOOD TAKE ONE TABLET BY MOUTH TWICE A DAY WITH FOOD SOLD: 05/26/2019 [facility] 150 mg 05/02/2019 12:00:00 AM EST tablet 90 TAKE ONE TABLET BY MOUTH DAILY TAKE ONE TABLET BY MOUTH DAILY SOLD: 05/04/2019 [facility] 150 mg 05/02/2019 12:00:00 AM EST tablet 90 TAKE ONE TABLET BY MOUTH DAILY TAKE ONE TABLET BY MOUTH DAILY SOLD: 08/02/2019 [facility] 150 mg 05/02/2019 12:00:00 AM EST tablet 90 TAKE ONE TABLET BY MOUTH DAILY TAKE ONE TABLET BY MOUTH DAILY SOLD: 10/31/2019 [facility] 0.5 mg 04/12/2019 12:00:00 AM EST tablet 60 TAKE ONE TABLET BY MOUTH TWO TIMES A DAY MAXIMUM DAILY DOSE = TWO TABLETS TAKE ONE TABLET BY MOUTH TWO TIMES A DAY MAXIMUM DAILY DOSE = TWO TABLETS SOLD: 04/15/2019 [facility] 75 mcg 04/05/2019 12:00:00 AM EST tablet 90 1 TAB.BY MOUTH EACH A.M. ON EMPTY STOMACH DO NOT EAT 1HR AFTER TAKING 1 TAB.BY MOUTH EACH A.M. ON EMPTY STOMACH DO NOT EAT 1HR AFTER TAKING SOLD: 07/05/2019 [facility] 75 mcg 04/05/2019 12:00:00 AM EST tablet 90 1 TAB.BY MOUTH EACH A.M. ON EMPTY STOMACH DO NOT EAT 1HR AFTER TAKING 1 TAB.BY MOUTH EACH A.M. ON EMPTY STOMACH DO NOT EAT 1HR AFTER TAKING SOLD: 04/08/2019 [facility] 3 ML liraglutide 6 MG/ML Pen Injector [Victoza] Victoza 04/04/2019 12:00:00 AM EST active [facility] ([facility]) Levothyroxine Sodium 0.075 MG Oral Tablet [Synthroid] Synthr oid 04/04/2019 12:00:00 AM EST active M EDENT ([facility]) 32 gauge x 1/4" 03/15/2019 12:00:00 AM EST needle 100 TO BE USED WITH VICTOZA PEN ONCE A DAY TO BE USED WITH VICTOZA PEN ONCE A DAY SOLD: 06/15/2019 [facility] atorvastatin 20 MG Oral Tablet ATORVASTATIN CALCIUM 03/08/2019 1 2:00:00 AM EST tablet 90 TAKE ONE TABLET BY MOUTH EVERY D AY TAKE ONE TABLET BY MOUTH EVERY DAY SOLD: 05/26/2019 [facility] ferric carboxymaltose 50 MG/ML Injectable Solution [Injectaf er] Injectafer 12/03/2018 12:00:00 AM EDT completed [facility] ([facility]) 150 mg 12/03/2018 12:00:00 AM EDT capsule,extended releas e 24hr 90 TAKE ONE CAPSULE BY MOUTH EVERY DAY TAKE ONE CAPSULE BY MOUTH EVERY DAY SOLD: 05/26/2019 [facility] 0.6 mg/0.1 mL (18 mg/3 mL) 09/15/2018 12:00:00 AM EDT pen in jector 18 START WITH 0.6MG UNDER THE SKIN DAILY FOR 1 WEEK THEN 1.2MG DAILY START WITH 0.6MG UNDER THE SKIN DAILY FOR 1 WEEK THEN 1.2MG DAILY SOLD: 06/15/2019 [facility] Insurance Providers Payer name Policy type / Coverage type Policy ID Covered green party ID Covered green party's relationship to lanza Policy Lanza Plan Information [employer] [place]/307 [id number] [employer] B [id number] S VYA [id number] [place] 302/307 [id number] [place] [place] 306/[id number] [employer] [facility] U/W Commercial [id number] Self [id number] [place] [employer] Part B [id number] Family Depend ent [id number] [employer] Commercial [id number] Family Depend ent [id number] [place] Medigap Part B [id number] Family Depend ent [id number] [employer] Commercial [id number] Family Depend ent [id number] [facility] [id number] [facility] [id number] [employer] U/W Commercial [id number] Self [id number] [place] Medigap Part B [id number] Family Depend ent [id number] [employer] Commercial [id number] Family Depend ent [id number] [employer] U/W Commercial [id number] Self [id number] ANSI-Not a Secondary Insurance [id number] ANSI-Commercial [id number] ANSI-Commercial [id number] ANSI-Not a Secondary Insurance [id number] ANSI-Not a Secondary Insurance [id number] ANSI-Commercial [id number] BCBS/Blue Card Commercial [id number] Family Dependent [id number] BS [place] Medigap Part B [id number] Family Depend ent [id number] [facility] Service Commercial [id number] Family Depend ent [id number] BCBS/Blue Card Commercial [id number] Family Dependent [id number] BCBS/Blue Card Commercial [id number] Family Dependent [id number] ANSI-Not a Secondary Insurance [id number] ANSI-Commercial [id number] ANSI-Not a Secondary Insurance [id number] ANSI-Commercial [id number] ANSI-Commercial [id number] ANSI-Not a Secondary Insurance [id number] BCBS/Blue Card Commercial [id number] Family Dependent [id number] ANSI-Not a Secondary Insurance [id number] ANSI-Commercial [id number] ANSI-Commercial [id number] ANSI-Not a Secondary Insurance [id number] ANSI-Not a Secondary Insurance [id number] BCBS/Blue Card Commercial [id number] Family Dependent [id number] ANSI-Not a Secondary Insurance [id number] ANSI-Not a Secondary Insurance [id number] [facility] [place] [place] [id number] S [id number] [facility] [id number] [facility] [id number] [place] Commercial [id number] Family Dependent [id number] [facility] Federal Service Commercial [id number] Family Depend ent [id number] [place] Commercial [id number] Family Dependen t [id number] [employer] [place] O [id number] S [id number] [place] Commercial [id number] Family Dependen t [id number] [place] Commercial [id number] Family Dependen t [id number] State Ins Fund() Workers Compensation [id number] Self [id number] [place] Commercial [id number] Family Dependen t [id number] State Ins Fund() Workers Compensation Self [place] Commercial Family Dependen t STATE INSURANCE FUND [id number] [facility] [id number] SP [id number] STATE INSURANCE FUND P [id number] S [id number] STATE INS FUND [id number] SP [id number] [facility] [id number] SP [id number] [facility]) P [id number] S [id number] SELF PAY UNAVAILABLE UNAVAILA BLE BCBS [place] PPO 302/307 [id number] Surgeries/Procedures Procedure Description Date Indications Data Source(s) Electrocardiogram Complete 05/31/2020 12:00:00 AM EST [facility] ([facility]) Mammography (procedure) 11/03/2019 12:00:00 AM EDT [facility] ([facility]) Results ID Date Data Source [id number] 04/09/2020 02:28:00 PM EST [facility] ([facility]) Name Value Range Interpretation Code Description Data Emilia rce(s) Supporting Document(s) Bacteria identified in Throat by Culture Laboratory test result [facility] ([facility]) no rX ID Date Data Source [id number] 04/09/2020 12:00:00 AM EST [facility] Name Value Range Interpretation Code Description Data Emilia rce(s) Supporting Document(s) SARS coronavirus 2 Ag Negative [facility] This lab was ordered by [facility] and reported by [facility]. ID Date Data Source [id number] 01/26/2020 12:00:00 AM EDT [facility] Name Value Range Interpretation Code Description Data Emilia rce(s) Supporting Document(s) SARS coronavirus 2 Ag [facility] This lab was ordered by [facility] and reported by [facility]. ID Date Data Source [id number] 04/05/2020 08:02:00 AM EST [facility] ([facility]) Name Value Range Interpretation Code Description Data Emilia rce(s) Supporting Document(s) Hemoglobin A1c 5.7 % Normal (applies to non-numeric r esults) [facility] ([facility]) <content>REFERENCE RANGES:</content><br/ ><content></content>
<content><=5.6% NORMAL</content>
<content>5.7-6.4% SUGGESTS IMPAIRED GLUCOSE METABOLISM/PREDIABETIC</content>
<content>>= 6.5% ABNORMAL</content>
<content></content> Estimated Average Glucose 117 mg/dL 60-110 Above high normal [facility] ([facility]) ID Date Data Source [id number] 04/05/2020 08:02:00 AM EST [facility] ([facility]) Name Value Range Interpretation Code Description Data Emilia rce(s) Supporting Document(s) Calcidiol [Mass/volume] in Serum or Plasma 47.2 ng/mL 30.0- 100.0 Normal (applies to non-numeric results) [facility] ([facility]) <content>note:<nlbl:demographic_changed> </content>
<content></content> ID Date Data Source [id number] 04/05/2020 08:02:00 AM EST [facility] ([facility]) Name Value Range Interpretation Code Description Data Emilia rce(s) Supporting Document(s) Thyroid Stimulating Hormone 1.120 uIU/ML 0.358-3.740 Norm al (applies to non- numeric results) [facility] ([facility]) Free T4 0.89 ng/dL 0.76-1.46 Normal (applies to non-numeric resul ts) [facility]) ID Date Data Source [id number] 04/05/2020 08:02:00 AM EST [facility] ([facility]) Name Value Range Interpretation Code Description Data Emilia rce(s) Supporting Document(s) Glucose, Fasting 112 mg/dL 70-100 Above high normal [facility]) Blood Urea Nitrogen 16 mg/dL 7-18 Normal (applies to non-nume julia results) [facility] ([facility]) Creatinine For GFR 0.88 mg/dL 0.55-1.30 Normal (applies to non -numeric results) [facility] ([facility]) Glomerular Filtration Rate Laboratory test result Normal (applies to non- numeric results) [facility] ([facility]) <content>Units are mL/min/1.73 m2</content>
<content></content>
<content>Chronic Kidney Disease Staging per NKF:</content>
<content></content>
<content>Stage I & II GFR >=60 Normal to Mildly Decreased</content>
<content>Stage III GFR 30- 59 Moderately Decreased</content>
<content>Stage IV GFR 15-29 Severely Decreased</content>
<content>Stage V GFR <15 Very Little GFR Left</content>
<content>ESRD GFR <15 on METAL FINISHER</content>
<content></content> Chloride Level 103 meq/L 98-107 Normal (applies to non-numeric r esults) [facility] ([facility]) Potassium Serum 4.1 meq/L 3.5-5.1 Normal (applies to non-numeric results) [facility] ([facility]) Sodium Level 141 meq/L 136-145 Normal (applies to non-numeric res ults) [facility] ([facility]) Carbon Dioxide Level 33 meq/L 21-32 Above high normal [facility] Anion Gap 5 meq/L 8-16 Below low normal [facility] ( [facility]) Ast/Sgot 12 U/L 7-37 Normal (applies to non-numeric resul ts) [facility] ([facility]) Calcium Level 9.1 mg/dL 8.5-10.1 Normal (applies to non-numeric re sults) [facility] ([facility]) Alt/SGPT 25 U/L 12-78 Normal (applies to non-numeric resul ts) [facility] ([facility]) Bilirubin,Total 0.5 mg/dL 0.2-1.0 Normal (applies to non-numeric results) [facility] ([facility]) Alkaline Phosphatase 124 U/L 45-117 Above high normal [facility]) Total Protein 7.2 GM/DL 6.4-8.2 Normal (applies to non-numeric re sults) [facility] ([facility]) Albumin/Globulin Ratio 1.3 1.2-2.2 Normal (applies to non-n umeric results) [facility] ([facility]) Albumin 4.0 GM/DL 3.2-5.2 Normal (applies to non-numeric resul ts) [facility] ([facility]) ID Date Data Source [id number] 04/05/2020 08:02:00 AM EST [facility] ([facility]) Name Value Range Interpretation Code Description Data Emilia rce(s) Supporting Document(s) White Blood Count 6.7 10 4.0-10.0 Normal (applies to non-numeri c results) [facility] ([facility]) Red Blood Count 4.60 10 4.00-5.40 Normal (applies to non-numeric results) [facility] ([facility]) Hemoglobin 13.8 g/dL 12.0-15.5 Normal (applies to non-numeric resul ts) [facility] ([facility]) Mean Corpuscular Hemoglobin 30.0 pg 27.0-33.0 Norm al (applies to non-numeric results) [facility] ([facility]) Mean Corpuscular Volume 94.1 fl 80.0-96.0 Normal ( applies to non-numeric results) [facility] ([facility]) Hematocrit 43.3 % 36.0-47.0 Normal (applies to non-numeric resul ts) [facility] ([facility]) Mean Corpuscular HGB Conc 31.9 g/dL 32.0-36.5 Below low normal [facility] ([facility]) Red Cell Distribution Width 12.0 % 11.5-14.5 Norm al (applies to non-numeric results) [facility] ([facility]) Platelet Count, Automated 275 10 150-450 Normal (applies to non-numeric results) [facility] ([facility]) Lymph % 28.9 % 24.0-44.0 Normal (applies to non-numeric resul ts) [facility] ([facility]) Gordon % 7.6 % 0.0-5.0 Above high normal [facility] ([facility]) Neutrophils % 59.7 % 36.0-66.0 Normal (applies to non-numeric re sults) [facility] ([facility]) Eos % 2.8 % 0.0-3.0 Normal (applies to non-numeric resul ts) [facility] ([facility]) Baso % 0.7 % 0.0-1.0 Normal (applies to non-numeric resul ts) [facility] ([facility]) Nucleated Red Blood Cell % 0.0 % 0-0 Normal (applies to n on-numeric results) [facility] ([facility]) Neutrophils # 4.0 10 1.5-8.5 Normal (applies to non-numeric re sults) [facility] ([facility]) Immature Granulocyte % 0.3 % 0-3.0 Normal (applies to non-n umeric results) [facility] ([facility]) Gordon # 0.5 10 0.0-0.8 Normal (applies to non-numeric resul ts) [facility] ([facility]) Lymph # 2.0 10 1.5-5.0 Normal (applies to non-numeric resul ts) [facility] ([facility]) Eos # 0.2 10 0.0-0.5 Normal (applies to non-numeric resul ts) [facility] ([facility]) Baso # 0.1 10 0.0-0.2 Normal (applies to non-numeric resul ts) [facility] ([facility]) ID Date Data Source [id number] 01/11/2020 08:04:00 AM EDT [facility] ([facility]) Name Value Range Interpretation Code Description Data Emilia rce(s) Supporting Document(s) Estimated Average Glucose 123 mg/dL 60-110 Above high normal [facility] ([facility]) Hemoglobin A1c 5.9 % Normal (applies to non-numeric r esults) [facility] ([facility]) <content>REFERENCE RANGES:</content><br/ ><content></content>
<content><=5.6% NORMAL</content>
<content>5.7-6.4% SUGGESTS IMPAIRED GLUCOSE METABOLISM/PREDIABETIC</content>
<content>>= 6.5% ABNORMAL</content>
<content></content> ID Date Data Source [id number] 01/11/2020 08:04:00 AM EDT [facility] ([facility]) Name Value Range Interpretation Code Description Data Emilia rce(s) Supporting Document(s) Blood Urea Nitrogen 19 mg/dL 7-18 Above high normal [facility] ([facility]) Glucose, Fasting 97 mg/dL 70-100 Normal (applies to non-numeric results) [facility] ([facility]) Creatinine For GFR 0.74 mg/dL 0.55-1.30 Normal (applies to non -numeric results) [facility] ([facility]) Glomerular Filtration Rate Laboratory test result Normal (applies to non- numeric results) [facility] ([facility]) <content>Units are mL/min/1.73 m2</content>
<content></content>
<content>Chronic Kidney Disease Staging per NKF:</content>
<content></content>
<content>Stage I & II GFR >=60 Normal to Mildly Decreased</content>
<content>Stage III GFR 30- 59 Moderately Decreased</content>
<content>Stage IV GFR 15-29 Severely Decreased</content>
<content>Stage V GFR <15 Very Little GFR Left</content>
<content>ESRD GFR <15 on METAL FINISHER</content>
<content></content> Sodium Level 138 meq/L 136-145 Normal (applies to non-numeric res ults) [facility] ([facility]) Chloride Level 104 meq/L 98-107 Normal (applies to non-numeric r esults) [facility] ([facility]) Potassium Serum 4.0 meq/L 3.5-5.1 Normal (applies to non-numeric results) [facility] ([facility]) Carbon Dioxide Level 27 meq/L 21-32 Normal (applies to non-num randal results) [facility] ([facility]) Calcium Level 8.9 mg/dL 8.5-10.1 Normal (applies to non-numeric re sults) [facility] ([facility]) Anion Gap 7 meq/L 8-16 Below low normal [facility] ( [facility]) Alt/SGPT 21 U/L 12-78 Normal (applies to non-numeric resul ts) [facility] ([facility]) Alkaline Phosphatase 132 U/L 45-117 Above high normal [facility] ([facility]) Ast/Sgot 19 U/L 7-37 Normal (applies to non-numeric resul ts) [facility] ([facility]) Bilirubin,Total 0.4 mg/dL 0.2-1.0 Normal (applies to non-numeric results) [facility] ([facility]) Albumin 4.1 GM/DL 3.2-5.2 Normal (applies to non-numeric resul ts) [facility] ([facility]) Total Protein 7.4 GM/DL 6.4-8.2 Normal (applies to non-numeric re sults) [facility] ([facility]) Albumin/Globulin Ratio 1.2 1.2-2.2 Normal (applies to non-n umeric results) [facility] ([facility]) ID Date Data Source [id number] 10/17/2019 08:40:00 AM EDT [facility] ([facility]) Name Value Range Interpretation Code Description Data Emilia rce(s) Supporting Document(s) Calcidiol [Mass/volume] in Serum or Plasma 122.5 ng/mL 30.0- 100.0 Above high normal [facility] ([facility]) <content>note:<nlbl:demographic_changed></content>
<content>note:<nlbl:demog raphic_changed></content>
<content></content> ID Date Data Source [id number] 10/17/2019 08:40:00 AM EDT [facility] ([facility]) Name Value Range Interpretation Code Description Data Emilia rce(s) Supporting Document(s) Triglycerides Level 120 mg/dL Normal (applies to non-nume julia results) [facility] ([facility]) Cholesterol Level 144 mg/dL Normal (applies to non-numeri c results) [facility] ([facility]) HDL Cholesterol 49 mg/dL Normal (applies to non-numeric results) [facility] ([facility]) LDL Cholesterol 71 mg/dL Normal (applies to non-numeric results) [facility] ([facility]) Cholesterol Risk Ratio 2.938 Normal (applies to non-n umeric results) [facility] ([facility]) Non-HDL-C 95 mg/dL Normal (applies to non-numeric resul ts) [facility] ([facility]) ID Date Data Source [id number] 10/17/2019 08:40:00 AM EDT [facility] ([facility]) Name Value Range Interpretation Code Description Data Emilia rce(s) Supporting Document(s) Total Iron Binding Capacity 296 ug/dL 250-450 Norm al (applies to non-numeric results) [facility] ([facility]) Iron (Fe) 113 ug/dL 50-170 Normal (applies to non-numeric resul ts) [facility] ([facility]) Percent Saturation 38.2 % 13.2-45.0 Normal (applies to non-numer ic results) [facility] ([facility]) ID Date Data Source [id number] 10/17/2019 08:40:00 AM EDT [facility] ([facility]) Name Value Range Interpretation Code Description Data Emilia rce(s) Supporting Document(s) Ferritin [Mass/volume] in Serum or Plasma 111 ng/mL 8-252 Normal (applies to non-numeric results) [facility] ([facility]) <content>note:<nlbl:demographic_changed></content>
<content>note:<nlbl:demog raphic_changed></content>
<content></content> ID Date Data Source [id number] 10/17/2019 08:40:00 AM EDT [facility] ([facility]) Name Value Range Interpretation Code Description Data Emilia rce(s) Supporting Document(s) White Blood Count 7.8 10 4.0-10.0 Normal (applies to non-numeri c results) [facility] ([facility]) Red Blood Count 4.58 10 4.00-5.40 Normal (applies to non-numeric results) [facility] ([facility]) Hemoglobin 14.0 g/dL 12.0-15.5 Normal (applies to non-numeric resul ts) [facility] ([facility]) Mean Corpuscular Volume 93.2 fl 80.0-96.0 Normal ( applies to non-numeric results) [facility] ([facility]) Mean Corpuscular Hemoglobin 30.6 pg 27.0-33.0 Norm al (applies to non-numeric results) [facility] ([facility]) Hematocrit 42.7 % 36.0-47.0 Normal (applies to non-numeric resul ts) [facility] ([facility]) Mean Corpuscular HGB Conc 32.8 g/dL 32.0-36.5 Normal (applies to non-numeric results) [facility] ([facility]) Red Cell Distribution Width 11.9 % 11.5-14.5 Norm al (applies to non-numeric results) [facility] ([facility]) Platelet Count, Automated 281 10 150-450 Normal (applies to non-numeric results) [facility] ([facility]) Lymph % 24.0 % 24.0-44.0 Normal (applies to non-numeric resul ts) [facility] ([facility]) Gordon % 6.6 % 0.0-5.0 Above high normal [facility] ([facility]) Neutrophils % 65.3 % 36.0-66.0 Normal (applies to non-numeric re sults) [facility] ([facility]) Baso % 0.9 % 0.0-1.0 Normal (applies to non-numeric resul ts) [facility] ([facility]) Immature Granulocyte % 0.5 % 0-3.0 Normal (applies to non-n umeric results) [facility] ([facility]) Eos % 2.7 % 0.0-3.0 Normal (applies to non-numeric resul ts) [facility] ([facility]) Nucleated Red Blood Cell % 0.0 % 0-0 Normal (applies to n on-numeric results) [facility] ([facility]) Gordon # 0.5 10 0.0-0.8 Normal (applies to non-numeric resul ts) [facility] ([facility]) Neutrophils # 5.1 10 1.5-8.5 Normal (applies to non-numeric re sults) [facility] ([facility]) Lymph # 1.9 10 1.5-5.0 Normal (applies to non-numeric resul ts) [facility] ([facility]) Baso # 0.1 10 0.0-0.2 Normal (applies to non-numeric resul ts) [facility] ([facility]) Eos # 0.2 10 0.0-0.5 Normal (applies to non-numeric resul ts) [facility] ([facility]) ID Date Data Source [id number] 10/17/2019 08:40:00 AM EDT [facility] ([facility]) Name Value Range Interpretation Code Description Data Emilia rce(s) Supporting Document(s) Thyroid Stimulating Hormone 1.320 uIU/ML 0.358-3.740 Norm al (applies to non- numeric results) [facility] ([facility]) Free T4 0.97 ng/dL 0.76-1.46 Normal (applies to non-numeric resul ts) [facility] ([facility]) ID Date Data Source [id number] 10/17/2019 08:40:00 AM EDT [facility] ([facility]) Name Value Range Interpretation Code Description Data Emilia rce(s) Supporting Document(s) Creatinine, Urine 204.0 mg/dL Normal (applies to non-numer ic results) [facility] ([facility]) Malb Urine Siemens 13.8 mg/L Normal (applies to non-numer ic results) [facility] ([facility]) Isidro/Creat Ratio 6.7 MCG/MG 0.0-30.0 Normal (applies to non-numeric results) [facility] ([facility]) THE [employer] [employer] STATES THAT MICROALBUMINURIA IS PRESENT IF THE MICROALBUMIN/CREATININE RATIO EXCEEDS 30 MCG/MG. THE THRESHOLD FOR CLINICAL ALBUMINURIA IS REACHED AT 300 MCG/MG. THE CLASSIFICATION OF A PATIENT SHOULD BE BASED UPON AT LEAST 2 OF 3 ABNORMAL RESULTS ON SPECIMENS COLLECTED WITHIN A 3 TO 6 MONTH TIME FRAME. ID Date Data Source [id number] 10/17/2019 08:40:00 AM EDT [facility] ([facility]) Name Value Range Interpretation Code Description Data Emilia rce(s) Supporting Document(s) Hemoglobin A1c 6.7 % Normal (applies to non-numeric r esults) [facility] ([facility]) REFERENCE RANGES: 4.5-5.6% NORMAL 5.7-6.4% SUGGESTS IMPAIRED GLUCOSE META BOLISM >= 6.5% ABNORMAL Estimated Average Glucose 146 mg/dL 60-110 Above high normal [facility] ([facility]) ID Date Data Source [id number] 10/17/2019 08:40:00 AM EDT [facility] ([facility]) Name Value Range Interpretation Code Description Data Emilia rce(s) Supporting Document(s) Glucose, Fasting 106 mg/dL 70-100 Above high normal [facility]) Blood Urea Nitrogen 14 mg/dL 7-18 Normal (applies to non-nume julia results) [facility] ([facility]) Creatinine For GFR 0.78 mg/dL 0.55-1.30 Normal (applies to non -numeric results) [facility] ([facility]) Sodium Level 138 meq/L 136-145 Normal (applies to non-numeric res ults) [facility] ([facility]) Glomerular Filtration Rate Laboratory test result Normal (applies to non- numeric results) [facility]) <content>Units are mL/min/1.73 m2</content>
<content></content>
<content>Chronic Kidney Disease Staging per NKF:</content>
<content></content>
<content>Stage I & II GFR >=60 Normal to Mildly Decreased</content>
<content>Stage III GFR 30- 59 Moderately Decreased</content>
<content>Stage IV GFR 15-29 Severely Decreased</content>
<content>Stage V GFR <15 Very Little GFR Left</content>
<content>ESRD GFR <15 on METAL FINISHER</content>
<content></content> Potassium Serum 3.9 meq/L 3.5-5.1 Normal (applies to non-numeric results) [facility] ([facility]) Anion Gap 5 meq/L 8-16 Below low normal [facility] ( [facility]) Chloride Level 101 meq/L 98-107 Normal (applies to non-numeric r esults) [facility] ([facility]) Carbon Dioxide Level 32 meq/L 21-32 Normal (applies to non-num randal results) [facility] ([facility]) Ast/Sgot 13 U/L 7-37 Normal (applies to non-numeric resul ts) [facility] ([facility]) Calcium Level 8.8 mg/dL 8.5-10.1 Normal (applies to non-numeric re sults) [facility] ([facility]) Alt/SGPT 21 U/L 12-78 Normal (applies to non-numeric resul ts) [facility] ([facility]) Albumin 4.1 GM/DL 3.2-5.2 Normal (applies to non-numeric resul ts) [facility] ([facility]) Total Protein 7.5 GM/DL 6.4-8.2 Normal (applies to non-numeric re sults) [facility] ([facility]) Bilirubin,Total 0.5 mg/dL 0.2-1.0 Normal (applies to non-numeric results) [facility] ([facility]) Alkaline Phosphatase 126 U/L 45-117 Above high normal [facility] ([facility]) Albumin/Globulin Ratio 1.2 1.2-2.2 Normal (applies to non-n umeric results) [facility] ([facility]) ID Date Data Source [id number] 07/11/2019 08:12:00 AM EDT [facility] ([facility]) Name Value Range Interpretation Code Description Data Emilia rce(s) Supporting Document(s) Thyroxine (T4) free [Mass/volume] in Serum or Plasma 0.97 ng/dL 0.76-1.46 Normal (applies to non-numeric results) [facility] ([facility]) <content>note:<nlbl:demographic_changed> </content>
<content></content> Thyrotropin [Units/volume] in Serum or Plasma 1.240 uIU/ML 0. 358-3.740 Normal (applies to non-numeric results) [facility] ([facility]) <content>note:<nlbl:demographic_changed> </content>
<content></content> ID Date Data Source [id number] 07/11/2019 08:12:00 AM EDT [facility] ([facility]) Name Value Range Interpretation Code Description Data Emilia rce(s) Supporting Document(s) Blood Urea Nitrogen 14 mg/dL 7-18 Normal (applies to non-nume julia results) [facility] ([facility]) Glucose, Fasting 122 mg/dL 70-100 Above high normal [facility]) Glomerular Filtration Rate Laboratory test result Normal (applies to non- numeric results) [facility] ([facility]) <content>Units are mL/min/1.73 m2</content>
<content></content>
<content>Chronic Kidney Disease Staging per NKF:</content>
<content></content>
<content>Stage I & II GFR >=60 Normal to Mildly Decreased</content>
<content>Stage III GFR 30- 59 Moderately Decreased</content>
<content>Stage IV GFR 15-29 Severely Decreased</content>
<content>Stage V GFR <15 Very Little GFR Left</content>
<content>ESRD GFR <15 on METAL FINISHER</content>
<content></content> Sodium Level 140 meq/L 136-145 Normal (applies to non-numeric res ults) [facility] ([facility]) Creatinine For GFR 0.81 mg/dL 0.55-1.30 Normal (applies to non -numeric results) [facility] ([facility]) Potassium Serum 4.5 meq/L 3.5-5.1 Normal (applies to non-numeric results) [facility] ([facility]) Chloride Level 104 meq/L 98-107 Normal (applies to non-numeric r esults) [facility] ([facility]) Anion Gap 5 meq/L 8-16 Below low normal [facility] ( [facility]) Carbon Dioxide Level 31 meq/L 21-32 Normal (applies to non-num randal results) [facility] ([facility]) Ast/Sgot 15 U/L 7-37 Normal (applies to non-numeric resul ts) [facility] ([facility]) Calcium Level 8.5 mg/dL 8.5-10.1 Normal (applies to non-numeric re sults) [facility] ([facility]) Alt/SGPT 29 U/L 12-78 Normal (applies to non-numeric resul ts) [facility] ([facility]) Bilirubin,Total 0.6 mg/dL 0.2-1.0 Normal (applies to non-numeric results) [facility] ([facility]) Alkaline Phosphatase 126 U/L 45-117 Above high normal [facility] ([facility]) Albumin 4.0 GM/DL 3.2-5.2 Normal (applies to non-numeric resul ts) [facility] ([facility]) Total Protein 7.1 GM/DL 6.4-8.2 Normal (applies to non-numeric re sults) [facility] ([facility]) Albumin/Globulin Ratio 1.29 1.00-1.93 Normal (applies to non-numeric results) [facility] ([facility]) ID Date Data Source [id number] 07/11/2019 08:12:00 AM EDT [facility] ([facility]) Name Value Range Interpretation Code Description Data Emilia rce(s) Supporting Document(s) Hemoglobin A1c 6.3 % Normal (applies to non-numeric r esults) [facility] ([facility]) REFERENCE RANGES: 4.5-5.6% NORMAL 5.7-6.4% SUGGESTS IMPAIRED GLUCOSE META BOLISM >= 6.5% ABNORMAL Estimated Average Glucose 134 mg/dL 60-110 Above high normal [facility] ([facility]) ID Date Data Source [id number] 04/04/2019 09:45:00 AM EST [facility] ([facility]) Name Value Range Interpretation Code Description Data Emilia rce(s) Supporting Document(s) Creatinine, Urine 144.0 mg/dL Normal (applies to non-numer ic results) [facility] ([facility]) Malb Urine Siemens 8.5 mg/L Normal (applies to non-numer ic results) [facility] ([facility]) Isidro/Creat Ratio 5.9 MCG/MG 0.0-30.0 Normal (applies to non-numeric results) [facility] ([facility]) THE [employer] [employer] STATES THAT MICROALBUMINURIA IS PRESENT IF THE MICROALBUMIN/CREATININE RATIO EXCEEDS 30 MCG/MG. THE THRESHOLD FOR CLINICAL ALBUMINURIA IS REACHED AT 300 MCG/MG. THE CLASSIFICATION OF A PATIENT SHOULD BE BASED UPON AT LEAST 2 OF 3 ABNORMAL RESULTS ON SPECIMENS COLLECTED WITHIN A 3 TO 6 MONTH TIME FRAME. ID Date Data Source [id number] 04/04/2019 09:45:00 AM EST [facility] ([facility]) Name Value Range Interpretation Code Description Data Emilia rce(s) Supporting Document(s) Hemoglobin A1c 6.7 % Normal (applies to non-numeric r esults) [facility] ([facility]) REFERENCE RANGES: 4.5-5.6% NORMAL 5.7-6.4% SUGGESTS IMPAIRED GLUCOSE META BOLISM >= 6.5% ABNORMAL Estimated Average Glucose 146 mg/dL 60-110 Above high normal [facility] ([facility]) ID Date Data Source [id number] 04/04/2019 09:45:00 AM EST [facility] ([facility]) Name Value Range Interpretation Code Description Data Emilia rce(s) Supporting Document(s) Glucose, Fasting 130 mg/dL 70-100 Above high normal [facility]) Glomerular Filtration Rate > 60.0 Normal (applies to n on-numeric results) [facility]) <content>Units are mL/min/1.73 m2</content>
<content></content>
<content>Chronic Kidney Disease Staging per NKF:</content>
<content></content>
<content>Stage I & II GFR >=60 Normal to Mildly Decreased</content>
<content>Stage III GFR 30- 59 Moderately Decreased</content>
<content>Stage IV GFR 15-29 Severely Decreased</content>
<content>Stage V GFR <15 Very Little GFR Left</content>
<content>ESRD GFR <15 on METAL FINISHER</content>
<content></content> Creatinine For GFR 0.78 mg/dL 0.55-1.30 Normal (applies to non -numeric results) [facility] ([facility]) Blood Urea Nitrogen 17 mg/dL 7-18 Normal (applies to non-nume julia results) [facility] ([facility]) Chloride Level 103 meq/L 98-107 Normal (applies to non-numeric r esults) [facility] ([facility]) Sodium Level 140 meq/L 136-145 Normal (applies to non-numeric res ults) [facility] ([facility]) Potassium Serum 4.7 meq/L 3.5-5.1 Normal (applies to non-numeric results) [facility] ([facility]) Anion Gap 7 meq/L 8-16 Below low normal [facility] ( [facility]) Calcium Level 8.8 mg/dL 8.5-10.1 Normal (applies to non-numeric re sults) [facility] ([facility]) Carbon Dioxide Level 30 meq/L 21-32 Normal (applies to non-num randal results) [facility] ([facility]) Ast/Sgot 33 U/L 7-37 Normal (applies to non-numeric resul ts) [facility] ([facility]) Alt/SGPT 38 U/L 12-78 Normal (applies to non-numeric resul ts) [facility] ([facility]) Alkaline Phosphatase 137 U/L 45-117 Above high normal [facility] ([facility]) Bilirubin,Total 0.4 mg/dL 0.2-1.0 Normal (applies to non-numeric results) [facility] ([facility]) Albumin/Globulin Ratio 1.11 1.00-1.93 Normal (applies to non-numeric results) [facility] ([facility]) Total Protein 7.6 GM/DL 6.4-8.2 Normal (applies to non-numeric re sults) [facility] ([facility]) Albumin 4.0 GM/DL 3.2-5.2 Normal (applies to non-numeric resul ts) [facility] ([facility]) ID Date Data Source [id number] 04/04/2019 09:45:00 AM EST [facility] ([facility]) Name Value Range Interpretation Code Description Data Emilia rce(s) Supporting Document(s) Free T4 0.78 ng/dL 0.76-1.46 Normal (applies to non-numeric resul ts) [facility] ([facility]) Thyroid Stimulating Hormone 2.130 uIU/ML 0.358-3.740 Norm al (applies to non- numeric results) [facility] ([facility]) ID Date Data Source [id number] 04/04/2019 09:45:00 AM EST [facility] ([facility]) Name Value Range Interpretation Code Description Data Emilia rce(s) Supporting Document(s) Hemoglobin 14.4 g/dL 12.0-15.5 Normal (applies to non-numeric resul ts) [facility] ([facility]) White Blood Count 8.6 10 4.0-10.0 Normal (applies to non-numeri c results) [facility] ([facility]) Red Blood Count 4.79 10 4.00-5.40 Normal (applies to non-numeric results) [facility] ([facility]) Hematocrit 44.8 % 36.0-47.0 Normal (applies to non-numeric resul ts) [facility] ([facility]) Mean Corpuscular Hemoglobin 30.1 pg 27.0-33.0 Norm al (applies to non-numeric results) [facility] ([facility]) Mean Corpuscular Volume 93.5 fl 80.0-96.0 Normal ( applies to non-numeric results) [facility] ([facility]) Mean Corpuscular HGB Conc 32.1 g/dL 32.0-36.5 Normal (applies to non-numeric results) [facility] ([facility]) Red Cell Distribution Width 13.3 % 11.5-14.5 Norm al (applies to non-numeric results) [facility] ([facility]) Platelet Count, Automated 279 10 150-450 Normal (applies to non-numeric results) [facility] ([facility]) Neutrophils % 70.7 % 36.0-66.0 Above high normal [facility] ([facility]) Lymph % 20.9 % 24.0-44.0 Below low normal [facility] ( [facility]) Gordon % 5.6 % 0.0-5.0 Above high normal [facility] ([facility]) Baso % 0.9 % 0.0-1.0 Normal (applies to non-numeric resul ts) [facility] ([facility]) Immature Granulocyte % 0.6 % 0-3.0 Normal (applies to non-n umeric results) [facility] ([facility]) Eos % 1.3 % 0.0-3.0 Normal (applies to non-numeric resul ts) [facility] ([facility]) Neutrophils # 6.1 10 1.5-8.5 Normal (applies to non-numeric re sults) [facility] ([facility]) Lymph # 1.8 10 1.5-5.0 Normal (applies to non-numeric resul ts) [facility] ([facility]) Nucleated Red Blood Cell % 0.0 % 0-0 Normal (applies to n on-numeric results) [facility] ([facility]) Baso # 0.1 10 0.0-0.2 Normal (applies to non-numeric resul ts) [facility] ([facility]) Gordon # 0.5 10 0.0-0.8 Normal (applies to non-numeric resul ts) [facility] ([facility]) Eos # 0.1 10 0.0-0.5 Normal (applies to non-numeric resul ts) [facility] ([facility]) Procedure Social History Code Duration Value Status Description Data Source(s ) Smoking 10/05/2019 12:00:00 AM EDT Patient has never smoked co mpleted Patient has never smoked [facility] ([facility]) Vital Signs ID Date Data Source UNK Name Value Range Interpretation Code Description Data Source(s) [place] body weight 120 [lb_av] 120 [lb_av] [facility] ([facility]) Oxygen saturation in Arterial blood by Pulse oximetry 98 % 98 % [facility] ([facility]) Body temperature 99.1 [degF] 99.1 [degF] [facility] ([facility]) Respiratory rate 18 /min 18 /min [facility] ( [facility]) Heart rate 95 /min 95 /min [facility] ([facility]) Body mass index (BMI) [Ratio] 29.4 kg/m2 29.4 k g/m2 [facility] ([facility]) Body weight 171.38 [lb_av] 171.38 [lb_av] [facility] ([facility]) Body height 64.0 [in_i] 64.0 [in_i] [facility] ([facility]) 5'4" Diastolic blood pressure 80 mm[Hg] 80 mm[Hg] [facility] ([facility]) Systolic blood pressure 124 mm[Hg] 124 mm[Hg] M [facility] ([facility]) Body mass index (BMI) [Ratio] 27.5 kg/m2 27.5 k g/m2 [facility] ([facility]) Body height 65 [in_i] 65 [in_i] [facility] ([facility]) 5'5" Body weight 165.00 [lb_av] 165.00 [lb_av] [facility] ([facility]) Body temperature 98.6 [degF] 98.6 [degF] [facility] ([facility]) Oxygen saturation in Arterial blood by Pulse oximetry 98 % 98 % [facility] ([facility]) Respiratory rate 15 /min 15 /min [facility] ( [facility], [facility]) Heart rate 96 /min 96 /min [facility] ([facility], [facility]) Diastolic blood pressure 83 mm[Hg] 83 mm[Hg] [facility] ([facility]) Systolic blood pressure 128 mm[Hg] 128 mm[Hg] M [facility] ([facility]) Body mass index (BMI) [Ratio] 28.6 kg/m2 28.6 k g/m2 [facility] ([facility], [facility]) Body height 65 [in_i] 65 [in_i] [facility] ([facility], [facility]) 5'5" Body weight 172.00 [lb_av] 172.00 [lb_av] [facility] ([facility]) Body temperature 98.4 [degF] 98.4 [degF] [facility] ([facility], [facility]) Oxygen saturation in Arterial blood by Pulse oximetry 98 % 98 % [facility] ([facility], [facility]) Respiratory rate 16 /min 16 /min [facility] ( [facility], [facility]) Heart rate 110 /min 110 /min [facility] ([facility], [facility]) Diastolic blood pressure 88 mm[Hg] 88 mm[Hg] [facility] ([facility], [facility]) Systolic blood pressure 133 mm[Hg] 133 mm[Hg] M [facility] ([facility], [facility]) [place] body weight 120 [lb_av] 120 [lb_av] [facility] ([facility]) Oxygen saturation in Arterial blood by Pulse oximetry 95 % 95 % [facility] ([facility]) Body temperature 98.1 [degF] 98.1 [degF] [facility] ([facility]) Respiratory rate 16 /min 16 /min [facility] ( [facility]) Heart rate 102 /min 102 /min [facility] ([facility]) Body mass index (BMI) [Ratio] 29.6 kg/m2 29.6 k g/m2 [facility] ([facility]) Body weight 172.25 [lb_av] 172.25 [lb_av] [facility] ([facility]) Body height 64.0 [in_i] 64.0 [in_i] [facility] ([facility]) 5'4" Diastolic blood pressure 82 mm[Hg] 82 mm[Hg] [facility] ([facility]) Systolic blood pressure 118 mm[Hg] 118 mm[Hg] M [facility] ([facility]) Body mass index (BMI) [Ratio] 28.8 kg/m2 28.8 k g/m2 [facility] ([facility]) Body height 65 [in_i] 65 [in_i] [facility] ([facility], [facility]) 5'5" Body weight 173.00 [lb_av] 173.00 [lb_av] [facility] ([facility], [facility]) Body temperature 98.5 [degF] 98.5 [degF] [facility] ([facility], [facility]) Oxygen saturation in Arterial blood by Pulse oximetry 96 % 96 % [facility] ([facility]) Heart rate 78 /min 78 /min [facility] ([facility]) Diastolic blood pressure 89 mm[Hg] 89 mm[Hg] [facility] ([facility]) Systolic blood pressure 124 mm[Hg] 124 mm[Hg] M [facility] ([facility], [facility]) [place] body weight 120 [lb_av] 120 [lb_av] [facility] ([facility]) Oxygen saturation in Arterial blood by Pulse oximetry 99 % 99 % [facility] ([facility]) Body temperature 99.0 [degF] 99.0 [degF] [facility] ([facility]) Respiratory rate 16 /min 16 /min [facility] ( [facility]) Heart rate 75 /min 75 /min [facility] ([facility]) Body mass index (BMI) [Ratio] 30.2 kg/m2 30.2 k g/m2 [facility] ([facility]) Body weight 176.12 [lb_av] 176.12 [lb_av] [facility] ([facility]) Body height 64.0 [in_i] 64.0 [in_i] [facility] ([facility]) 5'4" Diastolic blood pressure 78 mm[Hg] 78 mm[Hg] [facility] ([facility]) Systolic blood pressure 124 mm[Hg] 124 mm[Hg] M [facility] ([facility]) Oxygen saturation in Arterial blood by Pulse oximetry 97 % 97 % [facility] ([facility]) Body temperature 97.8 [degF] 97.8 [degF] [facility] ([facility]) Respiratory rate 18 /min 18 /min [facility] ( [facility]) Heart rate 100 /min 100 /min [facility] ([facility]) Body mass index (BMI) [Ratio] 29.5 kg/m2 29.5 k g/m2 [facility] ([facility]) Body weight 172.00 [lb_av] 172.00 [lb_av] ROHAN [facility]er ([facility]) Body height 64.0 [in_i] 64.0 [in_i] [facility] ([facility]) 5'4" Diastolic blood pressure 86 mm[Hg] 86 mm[Hg] [facility] ([facility]) Systolic blood pressure 124 mm[Hg] 124 mm[Hg] Dmitry [facility] ([facility]) Oxygen saturation in Arterial blood by Pulse oximetry 97 % 97 % [facility] ([facility]) Body temperature 97.8 [degF] 97.8 [degF] [facility] ([facility]) Heart rate 102 /min 102 /min [facility] ([facility]) Body mass index (BMI) [Ratio] 29.8 kg/m2 29.8 k g/m2 [facility] ([facility]) Body weight 173.50 [lb_av] 173.50 [lb_av] ROHAN Huber ([facility]) Body height 64.0 [in_i] 64.0 [in_i] [facility] ([facility]) 5'4" Diastolic blood pressure 84 mm[Hg] 84 mm[Hg] [facility] ([facility]) Systolic blood pressure 132 mm[Hg] 132 mm[Hg] Dmitry [facility] ([facility])
--- OUTSIDE RECORDS SUMMARY | 2020-05-31 17:15 | CCD | Continuity of Care Document ---
Author Author Yulisa SILVA Organization [place] [address] Phone [phone] Care Team Providers Care Professor Of English Name Role Phone Mariana Ng D.O. AUTM [...] Provide r Date Synthroid 75mcg Tablets 1 Tab.By Mouth Each A.M. On Empty Stomach DO Not Eat 1HR After Taking 90tabs Nikc OglesbyOSonia 04/01/2020 Victoza 18mg/3ML Solution Pen-Inje ct 1.8 mg subcutaneous injection daily. 27ml Nick ChavezOSonia 04/04/2019 Effexor XR 150mg Caps ER 24HR take capsule by mouth every day. 90caps F33.0 Mariana Ng D.O. 0 12/03/2018 Zofran Odt 4mg Tablets Dispers [...] tablet by mouth twice daily istop # [id number] 60tabs Rashid Robles.O. Omeprazole 20mg Capsules DR 1 by mouth every day 90caps Rashid Roberts.O. Atorvastatin Calcium 20mg Tablets Take 1 Tablet By Mouth Every Night 90tabs Rashid Roberts.O. History Medications Levothyroxine Sodium 75mcg Tablets 1 Tab.By Mouth Each A.M. On Empty Stomach DO Not Eat 1HR After Taking 90tabs Rashid Roberts.O. 01/05/2020 - 04/01/2020 Medications Administered in Office Medication SIG Qnty Indications Ordering Provider Date Immunization Administration Single Or Co mbination Injection MILADYS Moyer 04/2019 Immunizations CPT Code Status Date Vaccine Lot # [id number] Given 01/05/2020 Influenza Virus Vaccine, Quadrivalent, Split, Preservative Free [id number] U-Flu Given 01/20/2019 Influenza,Unspecified Vital Signs Date Vital Result Comment 01/05/2020 4:14pm BP Systolic 118 mmHg BP Diastolic 82 mmHg Height 64.0 inches 5'4" Weight 172.25 lb BMI (Body Mass Index) 29.6 kg/m2 Heart Rate 102 /min Respiratory Rate 16 /min Body Temperature 98.1 F O2 % BldC Oximetry 95 % [place] Body Weight 120 lb 10/05/2019 8:16am BP Systolic 124 mmHg BP Diastolic 78 mmHg Height 64.0 inches 5'4" Weight 176.12 lb BMI (Body Mass Index) 30.2 kg/m2 Heart Rate 75 /min Respiratory Rate 16 /min Body Temperature 99.0 F O2 % BldC Oximetry 99 % [place] Body Weight 120 lb Results Test Acquired Date Facility Test Result H/L Range Note CBC With Differential 04/05/[address] [address] [phone] White Blood Count 6.7 10 Normal 4.0-10.0 [...] 36.0-66.0 Lymph % 28.9 % Normal 24.0-44.0 Dawes % 7.6 % High 0.0-5.0 Eos % 2.8 % Normal 0.0-3.0 Baso % 0.7 % Normal 0.0-1.0 Immature Granulocyte % 0.3 % Normal 0-3.0 Nucleated Red Blood Cell % 0.0 % Normal 0-0 Neutrophils # 4.0 10 Normal 1.5-8.5 Lymph # 2.0 10 Normal 1.5-5.0 Dawes # 0.5 10 Normal 0.0-0.8 Eos # 0.2 10 Normal 0.0-0.5 Baso # 0.1 10 Normal 0.0-0.2 Comprehensive Metabolic Profil 04/05/[address] [address] [phone] Glucose, Fasting 112 mg/dL High 70-100 Blood [...] Ratio 1.3 Normal 1.2-2.2 FT4&TSH Panel 04/05/2020 [facility] [place]ter [address] [place] [address] [phone] Thyroid Stimulating Hormone 1.120 uIU/ML Normal 0. 358-3.740 Free T4 0.89 ng/dL Normal 0.76-1.46 Laboratory test finding 04/05/[address] [id number] [phone] Total 25(Oh) Vitamin D 47.2 NG/ML Normal 30.0-100. 0 2 Hemoglobin A1c 04/05/2020 [facility] [address] [place] [address] [phone] Hemoglobin A1c 5.7 % Normal 3 Estimated Average Glucose 117 mg/dL High 60-110 Comprehensive Metabolic Profil 01/11/2020 [facility] Outpa tient Testing (Registration) [address] [place], [place] [id number] [phone] Glucose, Fasting 97 mg/dL Normal 70-100 Blood [...] Ratio 1.2 Normal 1.2-2.2 Hemoglobin A1c 01/11/2020 [facility] Outpatient Testi ng (Registration) [address] [place] [phone] Hemoglobin A1c 5.9 % Normal 5 Estimated Average Glucose 123 mg/dL High 60-110 Comprehensive Metabolic Profil 10/17/[address] [address] [phone] Glucose, Fasting 106 mg/dL High 70-100 Blood [...] Ratio 1.2 Normal 1.2-2.2 Hemoglobin A1c 10/17/2019 [facility] n[facility] [address] [place] [phone] Hemoglobin A1c 6.7 % Normal 7 Estimated Average Glucose 146 mg/dL High 60-110 Microalbumin Random 10/17/2019 [facility] [address] [place] [address] [phone] Creatinine, Urine 204.0 mg/dL Normal Malb Urine Siemens 13.8 mg/L Normal Isidro/Creat Ratio 6.7 MCG/MG Normal 0.0-30.0 8 FT4&TSH Panel 10/17/2019 [facility] [address] [place] [address] [phone] Thyroid Stimulating Hormone 1.320 uIU/ML Normal 0. 358-3.740 Free T4 0.97 ng/dL Normal 0.76-1.46 CBC With Differential 10/17/[address] [address] [phone] White Blood Count 7.8 10 Normal 4.0-10.0 [...] 36.0-66.0 Lymph % 24.0 % Normal 24.0-44.0 Dawes % 6.6 % High 0.0-5.0 Eos % 2.7 % Normal 0.0-3.0 Baso % 0.9 % Normal 0.0-1.0 Immature Granulocyte % 0.5 % Normal 0-3.0 Nucleated Red Blood Cell % 0.0 % Normal 0-0 Neutrophils # 5.1 10 Normal 1.5-8.5 Lymph # 1.9 10 Normal 1.5-5.0 Dawes # 0.5 10 Normal 0.0-0.8 Eos # 0.2 10 Normal 0.0-0.5 Baso # 0.1 10 Normal 0.0-0.2 Laboratory test finding 10/17/[address] [address] [phone] Ferritin 111 NG/ML Normal 8-252 9 Total Iron Binding Capacit 10/17/[address] [address] [phone] Iron (Fe) 113 g/dL Normal 50-170 Total Iron Binding Capacity 296 g/dL Normal 250-450 Percent Saturation 38.2 % Normal 13.2-45.0 Lipid Panel 10/17/2019 [facility] [address] [place] [phone] Triglycerides Level 120 mg/dL Normal <150 Cholesterol Level 144 mg/dL Normal <200 HDL Cholesterol 49 mg/dL Normal >40 LDL Cholesterol 71 mg/dL Normal <100 Non-HDL-C 95 mg/dL Normal Cholesterol Risk Ratio 2.938 Normal <5 Laboratory test finding 10/17/[address] [address] [phone] Total 25(Oh) Vitamin D 122.5 NG/ML High 30.0-100 .0 10 1 Units are mL/min/1.73 m2 Chronic Kidney Disease Staging per NKF: Stage I & II GFR >=60 Normal to Mildly Decreased Stage III GFR 30-59 Moderately Decreased Stage IV GFR 15-29 Severely Decreased Stage V GFR <15 Very Little GFR Left ESRD GFR <15 on ELECTRICAL SYSTEM SPECIALIST 2 note:<nlbl:demographic_chang ed> 3 REFERENCE RANGES: <=5.6% NORMAL 5.7-6.4% SUGGESTS IMPAIRED GLUCOSE META BOLISM/PREDIABETIC >= 6.5% ABNORMAL 4 Units are mL/min/1.73 m2 Chronic Kidney Disease Staging per NKF: Stage I & II GFR >=60 Normal to Mildly Decreased Stage III GFR 30-59 Moderately Decreased Stage IV GFR 15-29 Severely Decreased Stage V GFR <15 Very Little GFR Left ESRD GFR <15 on ELECTRICAL SYSTEM SPECIALIST 5 REFERENCE RANGES: <=5.6% NORMAL 5.7-6.4% SUGGESTS IMPAIRED GLUCOSE META BOLISM/PREDIABETIC >= 6.5% ABNORMAL 6 Units are mL/min/1.73 m2 Chronic Kidney Disease Staging per NKF: Stage I & II GFR >=60 Normal to Mildly Decreased Stage III GFR 30-59 Moderately Decreased Stage IV GFR 15-29 Severely Decreased Stage V GFR <15 Very Little GFR Left ESRD GFR <15 on ELECTRICAL SYSTEM SPECIALIST 7 REFERENCE RANGES: 4.5-5.6% NORMAL 5.7-6.4% SUGGESTS IMPAIRED GLUCOSE META BOLISM >= 6.5% ABNORMAL 8 THE [employer] ATION STATES THAT MICROALBUMINURIA IS [...] note:<nlbl:demographic_changed> Procedures Date Code Description Status 11/03/2019 [id number] Mammogram Completed 10/25/2018 [id number] Mammogram Completed Medical Devices Description No Information Available Encounters Type Date Location Provider Dx Diagnosis Office Visit 01/05/2020 4:00p Family Medicine [facility] MILADYS Moyer E11.9 Type 2 diabetes mellitus wit hout complications E03.9 Hypothyroidism, unspecified I10 Essential (primary) hyperten cabrera K21.9 Gastro-esophageal reflux dis ease without esophagitis F41.1 Generalized anxiety disorder E78.49 Other hyperlipidemia D50.9 Iron deficiency anemia, unsp ecified Z23 Encounter for immunization Assessments Date Code Description Provider 01/05/2020 E11.9 Type 2 diabetes mellitus without complications MILADYS Moyer 01/05/2020 E03.9 Hypothyroidism, unspecified MILADYS [place] 01/05/2020 I10 Essential (primary) hypertension MILADYS Moyer 01/05/2020 K21.9 Gastro-esophageal reflux disease without esophagitis MILADYS Moyer 01/05/2020 F41.1 Generalized anxiety disorder MILADYS Oakley 01/05/2020 E78.49 Other hyperlipidemia MILADYS Navarro 01/05/2020 D50.9 Iron deficiency anemia, unspecif ied MILADYS Moyer 01/05/2020 Z23 Encounter for immunization MILADYS [place] Plan of Treatment Future Appointment(s):* 04/11/2020 11:20 am - MILADYS Moyer at [facility] Functional Status Description No Information Available Mental Status Description No Information Available Referrals Description No Information Available
[2020-05-31] MEDS ORDERED: KETOROLAC 30 MG/ML 1ML VIAL IV ONE (17:55)
--- OUTSIDE RECORDS SUMMARY | 2020-05-31 18:02 | CCD ---
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 If you continue you may have access to information: Regarding HIV / AIDS; Provided by facilities licensed or operated by the [facility] Office of Mental Health; or Provided by the [facility] Office for People With Developmental Disabilities. If such information is present, then the following [facility] mandated warning applies: This information has been [...] law may result in a fine or retirement sentence or both. A general authorization for the release of medical or other information is NOT sufficient authorization for further disc losure. Family History Family Member Name Family Member Gender Family Member Status Date o f Status Description Data Source(s) Unknown Male Problem [facility] ([facility]) Unknown Male Problem [facility] ([facility]) Unknown Male Problem [facility] ([facility]) Encounters Encounter Providers Location Date Indications Data Source(s ) Outpatient Attender: Marcelino HOOK [facility] 05/31/2020 03:15:00 PM EST [facility] ([facility]) Outpatient Attender: Marcelino HOOK Family [facility] 04/11/2020 10:20:00 AM EST [facility] ([facility]) Outpatient Attender: MARCELINO Kent [facility] 04/09/2020 01:15:00 PM EST [facility] ([facility] Outpatient Attender: MARCELINO Kent [facility] 01/26/2020 10:45:00 AM EDT [facility] ([facility]) Outpatient Attender: Marcelino HOOK [facility] 01/05/2020 04:00:00 PM EDT [facility] ([facility]) Outpatient Attender: CHEYENNE Kent Prima [facility] 12/29/2019 04:50:00 PM EDT [facility] ([facility]) Outpatient Attender: SHIRA LANE DO [facility] 10/05/2019 08:30:00 AM EDT [facility] ([facility]) Outpatient Attender: Marcelino HOOK [facility] 07/04/2019 09:30:00 AM EDT [facility] ([facility]) Outpatient Attender: Marcelino HOOK [facility] 04/04/2019 08:00:00 AM EST [facility] ([facility]) Immunizations Vaccine Date Status Description Data Source(s) New in 2011. IIV4 01/05/2020 04:49:00 PM EDT completed [facility] ([facility]) Medications Medication Brand Name Start Date Product Form Dose Route Admi nistrative Instructions Pharmacy Instructions Status Indications Reaction Description Data Source(s) 24 HR venlafaxine 150 MG Extended Release Oral Capsule Venla faxine HCL ER 05/28/2020 12:00:00 AM EST active [facility] ([facility]) Metformin hydrochloride 1000 MG Oral Tablet [...] 12:00:00 AM EST ORAL active M EDENT ([facility]) 0.5 mg 03/13/2020 12:00:00 AM EST [...] Ondansetron 01/26/2020 12:00:00 AM EDT active [facility] ([facility]) 150 mg 01/26/2020 12:00:00 AM EDT [...] um 01/05/2020 12:00:00 AM EDT completed [facility] ([facility]) Immunization Administration Single Or Combination 01/05/2020 12:00:00 AM EDT completed [facility] ([facility]) Medication administered onsite 0.5 mg 12/28/2019 [...] TABLET BY MOUTH EVERY NIGHT SOLD: 08/30/2019 [facility] atorvastatin 20 MG Oral Tablet [...] MOUTH WEEKLY SOLD: 06/25/2019 [facility] Ergocalciferol 17517 UNT Oral Capsule Vitamin D (Ergocalcife rol) 06/21/2019 12:00:00 AM EDT completed [facility] ([facility]) 20 mg 06/03/2019 12:00:00 AM EST [...] ONE TABLET BY MOUTH DAILY SOLD: 05/04/2019 [facility] 150 mg 05/02/2019 12:00:00 AM EST [...] Victoza 04/04/2019 12:00:00 AM EST active [facility] ([facility]) Levothyroxine Sodium 0.075 MG Oral Tablet [Synthroid] Synthr oid 04/04/2019 12:00:00 AM EST active M EDENT ([facility]) 32 gauge x 1/4" 03/15/2019 12:00:00 [...] Injectafer 12/03/2018 12:00:00 AM EDT completed [facility] ([facility]) 150 mg 12/03/2018 12:00:00 AM EDT [...] type / Coverage type Policy ID Covered democrat ID Covered democrat's relationship to lanza Policy Lanza Plan Information [place] 302/307 [id number] EXCELLUS BCBS B [id number] S [id number] [id number] [place] 302/307 [id number] [id number] BCBS [place] 306/806 [id number] [facility] U/W Commercial [id number] Self [id number] BS [facility] Med[facility] Part B [id number] Family Depend ent [id number] [employer] Federal Service Commercial [id number] Family Depend ent [id number] BS [employer] Medigap Part B [id number] Family Depend ent [id number] [employer] Federal Service Commercial [id number] Family Depend ent [id number] [facility] [facility] [id number] [facility] [id number] [employer] U/W Commercial [id number] Self [id number] BS [employer] Medigap Part B [id number] Family Depend ent [id number] [employer] Federal Service Commercial [id number] Family Depend ent [id number] [employer] U/W Commercial [id number] Self [id number] ANSI-Not a Secondary Insurance [id number] ANSI-Commercial [id number] ANSI-Commercial [id number] ANSI-Not a Secondary Insurance [id number] ANSI-Not a Secondary Insurance [id number] ANSI-Commercial [id number] BCBS/Blue Card Commercial [id number] Family Dependent [id number] BS [employer] Medigap Part B [id number] Family Depend ent [id number] [facility] Service Commercial [id number] Family Depend ent [id number] BCBS/Blue Card Commercial [id number] Family Dependent [id number] BCBS/Blue Card Commercial [id number] Family Dependent [id number] ANSI-Not a Secondary Insurance [id number] ANSI-Commercial [id number] ANSI-Not a Secondary Insurance [id number] ANSI-Commercial [id number] ANSI-Commercial [id number] ANSI-Not a Secondary Insurance [id number] BCBS/Blue Card Commercial [id number] Family Dependent [id number] ANSI-Not a Secondary Insurance [id number] ANSI-Commercial [id number] ANSI-Commercial [id number] ANSI-Not a Secondary Insurance [id number] ANSI-Not a Secondary Insurance [id number] BCBS/Blue Card Commercial [id number] Family Dependent [id number] ANSI-Not a Secondary Insurance [id number] ANSI-Not a Secondary Insurance [id number] [place] [id number] S [id number] [facility] [id number] [facility] [id number] East Commercial [id number] Family Dependent [id number] [facility] Federal Service Commercial [id number] Family Depend ent [id number] [place] Commercial [id number] Family Dependen t [id number] [employer] [place] O [id number] S [id number] [place] Commercial [id number] Family Dependen t [id number] [place] Commercial [id number] Family Dependen t [id number] State Ins Fund() Workers Compensation [id number] Self [id number] [place] Commercial [id number] Family Dependen t [id number] State Ins Fund() Workers Compensation Self [place] Commercial Family Dependen t STATE INSURANCE FUND [id number] [facility] [id number] SP [id number] STATE INSURANCE FUND P [id number] S [id number] STATE INS FUND [id number] SP [id number] [facility] [id number] SP [id number] [facility]) P [id number] S [id number] SELF PAY UNAVAILABLE UNAVAILA BLE BCBS [place] PPO 302/307 [id number] Surgeries/Procedures Procedure Description Date Indications Data Source(s) Electrocardiogram Complete 05/31/2020 12:00:00 AM EST [facility] ([facility]) Mammography (procedure) 11/03/2019 12:00:00 AM EDT [facility] ([facility]) Results ID Date Data Source [id number] 04/09/2020 02:28:00 PM EST [facility] ([facility]) Name Value Range Interpretation Code Description Data Emilia rce(s) Supporting Document(s) Bacteria identified in Throat by Culture [facility] no rX ID Date Data Source [id number] 04/09/2020 12:00:00 AM EST [facility] Name Value Range Interpretation Code Description Data Emilia rce(s) Supporting Document(s) SARS coronavirus 2 Ag Negative [facility] This lab was ordered by [facility] and reported by [facility]. ID Date Data Source [id number] 01/26/2020 12:00:00 AM EDT [facility] Name Value Range Interpretation Code Description Data Emilia rce(s) Supporting Document(s) SARS coronavirus 2 Ag [facility] This lab was ordered by [facility] and reported by [facility]. ID Date Data Source [id number] 04/05/2020 08:02:00 AM EST [facility] ([facility]) Name Value Range Interpretation Code Description Data Emilia rce(s) Supporting Document(s) Hemoglobin A1c 5.7 % Normal (applies to non-numeric r esults) [facility] ([facility]) <content>REFERENCE RANGES:</content><br/ ><content></content>
<content><=5.6% NORMAL</content>
<content>5.7-6.4% SUGGESTS IMPAIRED GLUCOSE METABOLISM/PREDIABETIC</content>
<content>>= 6.5% ABNORMAL</content>
<content></content> Estimated Average Glucose 117 mg/dL 60-110 Above high normal [facility] ([facility]) ID Date Data Source [id number] 04/05/2020 08:02:00 AM EST [facility] ([facility]) Name Value Range Interpretation Code Description Data Emilia rce(s) Supporting Document(s) Calcidiol [Mass/volume] in Serum or Plasma 47.2 ng/mL 30.0- 100.0 Normal (applies to non-numeric results) [facility] ([facility]) <content>note:<nlbl:demographic_changed> </content>
<content></content> ID Date Data Source [id number] 04/05/2020 08:02:00 AM EST [facility] ([facility]) Name Value Range Interpretation Code Description Data Emilia rce(s) Supporting Document(s) Thyroid Stimulating Hormone 1.120 uIU/ML 0.358-3.740 Norm al (applies to non- numeric results) [facility] ([facility]) Free T4 0.89 ng/dL 0.76-1.46 Normal (applies to non-numeric resul ts) [facility]) ID Date Data Source [id number] 04/05/2020 08:02:00 AM EST [facility] ([facility]) Name Value Range Interpretation Code Description Data Emilia rce(s) Supporting Document(s) Glucose, Fasting 112 mg/dL 70-100 Above high normal [facility] Blood Urea Nitrogen 16 mg/dL 7-18 Normal (applies to non-nume julia results) [facility] ([facility]) Creatinine For GFR 0.88 mg/dL 0.55-1.30 Normal (applies to non -numeric results) [facility] ([facility]) Glomerular Filtration Rate Laboratory test result Normal (applies to non- numeric results) [facility] ([facility]) <content>Units are mL/min/1.73 m2</content>
<content></content>
<content>Chronic Kidney Disease Staging per NKF:</content>
<content></content>
<content>Stage I & II GFR >=60 Normal to Mildly Decreased</content>
<content>Stage III GFR 30- 59 Moderately Decreased</content>
<content>Stage IV GFR 15-29 Severely Decreased</content>
<content>Stage V GFR <15 Very Little GFR Left</content>
<content>ESRD GFR <15 on CNA GNA</content>
<content></content> Chloride Level 103 meq/L 98-107 Normal (applies to non-numeric r esults) [facility] ([facility]) Potassium Serum 4.1 meq/L 3.5-5.1 Normal (applies to non-numeric results) [facility] ([facility]) Sodium Level 141 meq/L 136-145 Normal (applies to non-numeric res ults) [facility] ([facility]) Carbon Dioxide Level 33 meq/L 21-32 Above high normal [facility] Anion Gap 5 meq/L 8-16 Below low normal [facility]) Ast/Sgot 12 U/L 7-37 Normal (applies to non-numeric resul ts) [facility] ([facility]) Calcium Level 9.1 mg/dL 8.5-10.1 Normal (applies to non-numeric re sults) [facility] ([facility]) Alt/SGPT 25 U/L 12-78 Normal (applies to non-numeric resul ts) [facility] ([facility]) Bilirubin,Total 0.5 mg/dL 0.2-1.0 Normal (applies to non-numeric results) [facility] ([facility]) Alkaline Phosphatase 124 U/L 45-117 Above high normal [facility] Total Protein 7.2 GM/DL 6.4-8.2 Normal (applies to non-numeric re sults) [facility] ([facility]) Albumin/Globulin Ratio 1.3 1.2-2.2 Normal (applies to non-n umeric results) [facility] ([facility]) Albumin 4.0 GM/DL 3.2-5.2 Normal (applies to non-numeric resul ts) [facility] ([facility]) ID Date Data Source [id number] 04/05/2020 08:02:00 AM EST [facility] ([facility]) Name Value Range Interpretation Code Description Data Emilia rce(s) Supporting Document(s) White Blood Count 6.7 10 4.0-10.0 Normal (applies to non-numeri c results) [facility] ([facility]) Red Blood Count 4.60 10 4.00-5.40 Normal (applies to non-numeric results) [facility] ([facility]) Hemoglobin 13.8 g/dL 12.0-15.5 Normal (applies to non-numeric resul ts) [facility] ([facility]) Mean Corpuscular Hemoglobin 30.0 pg 27.0-33.0 Norm al (applies to non-numeric results) [facility] ([facility]) Mean Corpuscular Volume 94.1 fl 80.0-96.0 Normal ( applies to non-numeric results) [facility] ([facility]) Hematocrit 43.3 % 36.0-47.0 Normal (applies to non-numeric resul ts) [facility] Mean Corpuscular HGB Conc 31.9 g/dL 32.0-36.5 Below low normal [facility] ([facility]) Red Cell Distribution Width 12.0 % 11.5-14.5 Norm al (applies to non-numeric results) [facility] ([facility]) Platelet Count, Automated 275 10 150-450 Normal (applies to non-numeric results) [facility] ([facility]) Lymph % 28.9 % 24.0-44.0 Normal (applies to non-numeric resul ts) [facility] ([facility]) Toole % 7.6 % 0.0-5.0 Above high normal [facility] ([facility]) Neutrophils % 59.7 % 36.0-66.0 Normal (applies to non-numeric re sults) [facility] ([facility]) Eos % 2.8 % 0.0-3.0 Normal (applies to non-numeric resul ts) [facility] ([facility]) Baso % 0.7 % 0.0-1.0 Normal (applies to non-numeric resul ts) [facility] ([facility]) Nucleated Red Blood Cell % 0.0 % 0-0 Normal (applies to n on-numeric results) [facility] ([facility]) Neutrophils # 4.0 10 1.5-8.5 Normal (applies to non-numeric re sults) [facility] ([facility]) Immature Granulocyte % 0.3 % 0-3.0 Normal (applies to non-n umeric results) [facility] ([facility]) Toole # 0.5 10 0.0-0.8 Normal (applies to non-numeric resul ts) [facility] ([facility]) Lymph # 2.0 10 1.5-5.0 Normal (applies to non-numeric resul ts) [facility] ([facility]) Eos # 0.2 10 0.0-0.5 Normal (applies to non-numeric resul ts) [facility] ([facility]) Baso # 0.1 10 0.0-0.2 Normal (applies to non-numeric resul ts) [facility] ([facility]) ID Date Data Source [id number] 01/11/2020 08:04:00 AM EDT [facility] ([facility]) Name Value Range Interpretation Code Description Data Emilia rce(s) Supporting Document(s) Estimated Average Glucose 123 mg/dL 60-110 Above high normal [facility] ([facility]) Hemoglobin A1c 5.9 % Normal (applies to non-numeric r esults) [facility] ([facility]) <content>REFERENCE RANGES:</content><br/ ><content></content>
<content><=5.6% NORMAL</content>
<content>5.7-6.4% SUGGESTS IMPAIRED GLUCOSE METABOLISM/PREDIABETIC</content>
<content>>= 6.5% ABNORMAL</content>
<content></content> ID Date Data Source [id number] 01/11/2020 08:04:00 AM EDT [facility] ([facility]) Name Value Range Interpretation Code Description Data Emilia rce(s) Supporting Document(s) Blood Urea Nitrogen 19 mg/dL 7-18 Above high normal [facility] ([facility]) Glucose, Fasting 97 mg/dL 70-100 Normal (applies to non-numeric results) [facility] ([facility]) Creatinine For GFR 0.74 mg/dL 0.55-1.30 Normal (applies to non -numeric results) [facility] ([facility]) Glomerular Filtration Rate Laboratory test result Normal (applies to non- numeric results) [facility] ([facility]) <content>Units are mL/min/1.73 m2</content>
<content></content>
<content>Chronic Kidney Disease Staging per NKF:</content>
<content></content>
<content>Stage I & II GFR >=60 Normal to Mildly Decreased</content>
<content>Stage III GFR 30- 59 Moderately Decreased</content>
<content>Stage IV GFR 15-29 Severely Decreased</content>
<content>Stage V GFR <15 Very Little GFR Left</content>
<content>ESRD GFR <15 on CNA GNA</content>
<content></content> Sodium Level 138 meq/L 136-145 Normal (applies to non-numeric res ults) [facility] ([facility]) Chloride Level 104 meq/L 98-107 Normal (applies to non-numeric r esults) [facility] ([facility]) Potassium Serum 4.0 meq/L 3.5-5.1 Normal (applies to non-numeric results) [facility] ([facility]) Carbon Dioxide Level 27 meq/L 21-32 Normal (applies to non-num randal results) [facility] ([facility]) Calcium Level 8.9 mg/dL 8.5-10.1 Normal (applies to non-numeric re sults) [facility] ([facility]) Anion Gap 7 meq/L 8-16 Below low normal [facility] ( [facility]) Alt/SGPT 21 U/L 12-78 Normal (applies to non-numeric resul ts) [facility] ([facility]) Alkaline Phosphatase 132 U/L 45-117 Above high normal [facility] ([facility]) Ast/Sgot 19 U/L 7-37 Normal (applies to non-numeric resul ts) [facility] ([facility]) Bilirubin,Total 0.4 mg/dL 0.2-1.0 Normal (applies to non-numeric results) [facility] ([facility]) Albumin 4.1 GM/DL 3.2-5.2 Normal (applies to non-numeric resul ts) [facility] ([facility]) Total Protein 7.4 GM/DL 6.4-8.2 Normal (applies to non-numeric re sults) [facility] ([facility]) Albumin/Globulin Ratio 1.2 1.2-2.2 Normal (applies to non-n umeric results) [facility] ([facility]) ID Date Data Source [id number] 10/17/2019 08:40:00 AM EDT [facility] Name Value Range Interpretation Code Description Data Emilia rce(s) Supporting Document(s) Calcidiol [Mass/volume] in Serum or Plasma 122.5 ng/mL 30.0- 100.0 Above high normal [facility] ([facility]) <content>note:<nlbl:demographic_changed></content>
<content>note:<nlbl:demog raphic_changed></content>
<content></content> ID Date Data Source [id number] 10/17/2019 08:40:00 AM EDT [facility] Name Value Range Interpretation Code Description Data Emilia rce(s) Supporting Document(s) Triglycerides Level 120 mg/dL Normal (applies to non-nume julia results) [facility] ([facility]) Cholesterol Level 144 mg/dL Normal (applies to non-numeri c results) [facility] ([facility]) HDL Cholesterol 49 mg/dL Normal (applies to non-numeric results) [facility] ([facility]) LDL Cholesterol 71 mg/dL Normal (applies to non-numeric results) [facility]) Cholesterol Risk Ratio 2.938 Normal (applies to non-n umeric results) [facility] ([facility]) Non-HDL-C 95 mg/dL Normal (applies to non-numeric resul ts) [facility] ([facility]) ID Date Data Source [id number] 10/17/2019 08:40:00 AM EDT [facility] ([facility]) Name Value Range Interpretation Code Description Data Emilia rce(s) Supporting Document(s) Total Iron Binding Capacity 296 ug/dL 250-450 Norm al (applies to non-numeric results) [facility] ([facility]) Iron (Fe) 113 ug/dL 50-170 Normal (applies to non-numeric resul ts) [facility] ([facility]) Percent Saturation 38.2 % 13.2-45.0 Normal (applies to non-numer ic results) [facility] ([facility]) ID Date Data Source [id number] 10/17/2019 08:40:00 AM EDT [facility] ([facility]) Name Value Range Interpretation Code Description Data Emilia rce(s) Supporting Document(s) Ferritin [Mass/volume] in Serum or Plasma 111 ng/mL 8-252 Normal (applies to non-numeric results) [facility] ([facility]) <content>note:<nlbl:demographic_changed></content>
<content>note:<nlbl:demog raphic_changed></content>
<content></content> ID Date Data Source [id number] 10/17/2019 08:40:00 AM EDT [facility] ([facility]) Name Value Range Interpretation Code Description Data Emilia rce(s) Supporting Document(s) White Blood Count 7.8 10 4.0-10.0 Normal (applies to non-numeri c results) [facility] ([facility]) Red Blood Count 4.58 10 4.00-5.40 Normal (applies to non-numeric results) [facility] ([facility]) Hemoglobin 14.0 g/dL 12.0-15.5 Normal (applies to non-numeric resul ts) [facility] ([facility]) Mean Corpuscular Volume 93.2 fl 80.0-96.0 Normal ( applies to non-numeric results) [facility] ([facility]) Mean Corpuscular Hemoglobin 30.6 pg 27.0-33.0 Norm al (applies to non-numeric results) [facility] ([facility]) Hematocrit 42.7 % 36.0-47.0 Normal (applies to non-numeric resul ts) [facility] ([facility]) Mean Corpuscular HGB Conc 32.8 g/dL 32.0-36.5 Normal (applies to non-numeric results) [facility] ([facility]) Red Cell Distribution Width 11.9 % 11.5-14.5 Norm al (applies to non-numeric results) [facility] ([facility]) Platelet Count, Automated 281 10 150-450 Normal (applies to non-numeric results) [facility] ([facility]) Lymph % 24.0 % 24.0-44.0 Normal (applies to non-numeric resul ts) [facility] ([facility]) Toole % 6.6 % 0.0-5.0 Above high normal [facility] ([facility]) Neutrophils % 65.3 % 36.0-66.0 Normal (applies to non-numeric re sults) [facility] ([facility]) Baso % 0.9 % 0.0-1.0 Normal (applies to non-numeric resul ts) [facility] ([facility]) Immature Granulocyte % 0.5 % 0-3.0 Normal (applies to non-n umeric results) [facility] ([facility]) Eos % 2.7 % 0.0-3.0 Normal (applies to non-numeric resul ts) [facility] ([facility]) Nucleated Red Blood Cell % 0.0 % 0-0 Normal (applies to n on-numeric results) [facility] ([facility]) Toole # 0.5 10 0.0-0.8 Normal (applies to non-numeric resul ts) [facility] ([facility]) Neutrophils # 5.1 10 1.5-8.5 Normal (applies to non-numeric re sults) [facility] ([facility]) Lymph # 1.9 10 1.5-5.0 Normal (applies to non-numeric resul ts) [facility] ([facility]) Baso # 0.1 10 0.0-0.2 Normal (applies to non-numeric resul ts) [facility] ([facility]) Eos # 0.2 10 0.0-0.5 Normal (applies to non-numeric resul ts) [facility] ([facility]) ID Date Data Source [id number] 10/17/2019 08:40:00 AM EDT [facility] ([facility]) Name Value Range Interpretation Code Description Data Emilia rce(s) Supporting Document(s) Thyroid Stimulating Hormone 1.320 uIU/ML 0.358-3.740 Norm al (applies to non- numeric results) [facility] ([facility]) Free T4 0.97 ng/dL 0.76-1.46 Normal (applies to non-numeric resul ts) [facility] ([facility]) ID Date Data Source [id number] 10/17/2019 08:40:00 AM EDT [facility] ([facility]) Name Value Range Interpretation Code Description Data Emilia rce(s) Supporting Document(s) Creatinine, Urine 204.0 mg/dL Normal (applies to non-numer ic results) [facility] ([facility]) Malb Urine Siemens 13.8 mg/L Normal (applies to non-numer ic results) [facility] ([facility]) Isidro/Creat Ratio 6.7 MCG/MG 0.0-30.0 Normal (applies to non-numeric results) [facility] ([facility]) [employer] STATES THAT MICROALBUMINURIA IS PRESENT IF THE MICROALBUMIN/CREATININE RATIO EXCEEDS 30 MCG/MG. THE THRESHOLD FOR CLINICAL ALBUMINURIA IS REACHED AT 300 MCG/MG. THE CLASSIFICATION OF A PATIENT SHOULD BE BASED UPON AT LEAST 2 OF 3 ABNORMAL RESULTS ON SPECIMENS COLLECTED WITHIN A 3 TO 6 MONTH TIME FRAME. ID Date Data Source [id number] 10/17/2019 08:40:00 AM EDT [facility] ([facility]) Name Value Range Interpretation Code Description Data Emilia rce(s) Supporting Document(s) Hemoglobin A1c 6.7 % Normal (applies to non-numeric r esults) [facility] ([facility]) REFERENCE RANGES: 4.5-5.6% NORMAL 5.7-6.4% SUGGESTS IMPAIRED GLUCOSE META BOLISM >= 6.5% ABNORMAL Estimated Average Glucose 146 mg/dL 60-110 Above high normal [facility] ([facility]) ID Date Data Source [id number] 10/17/2019 08:40:00 AM EDT [facility] ([facility]) Name Value Range Interpretation Code Description Data Emilia rce(s) Supporting Document(s) Glucose, Fasting 106 mg/dL 70-100 Above high normal [facility] ([facility]) Blood Urea Nitrogen 14 mg/dL 7-18 Normal (applies to non-nume julia results) [facility] ([facility]) Creatinine For GFR 0.78 mg/dL 0.55-1.30 Normal (applies to non -numeric results) [facility] ([facility]) Sodium Level 138 meq/L 136-145 Normal (applies to non-numeric res ults) [facility] ([facility]) Glomerular Filtration Rate Laboratory test result Normal (applies to non- numeric results) [facility]) <content>Units are mL/min/1.73 m2</content>
<content></content>
<content>Chronic Kidney Disease Staging per NKF:</content>
<content></content>
<content>Stage I & II GFR >=60 Normal to Mildly Decreased</content>
<content>Stage III GFR 30- 59 Moderately Decreased</content>
<content>Stage IV GFR 15-29 Severely Decreased</content>
<content>Stage V GFR <15 Very Little GFR Left</content>
<content>ESRD GFR <15 on CNA GNA</content>
<content></content> Potassium Serum 3.9 meq/L 3.5-5.1 Normal (applies to non-numeric results) [facility] ([facility]) Anion Gap 5 meq/L 8-16 Below low normal [facility] ( [facility]) Chloride Level 101 meq/L 98-107 Normal (applies to non-numeric r esults) [facility] ([facility]) Carbon Dioxide Level 32 meq/L 21-32 Normal (applies to non-num randal results) [facility] ([facility]) Ast/Sgot 13 U/L 7-37 Normal (applies to non-numeric resul ts) [facility] ([facility]) Calcium Level 8.8 mg/dL 8.5-10.1 Normal (applies to non-numeric re sults) [facility] ([facility]) Alt/SGPT 21 U/L 12-78 Normal (applies to non-numeric resul ts) [facility] ([facility]) Albumin 4.1 GM/DL 3.2-5.2 Normal (applies to non-numeric resul ts) [facility] ([facility]) Total Protein 7.5 GM/DL 6.4-8.2 Normal (applies to non-numeric re sults) [facility] ([facility]) Bilirubin,Total 0.5 mg/dL 0.2-1.0 Normal (applies to non-numeric results) [facility] ([facility]) Alkaline Phosphatase 126 U/L 45-117 Above high normal [facility] ([facility]) Albumin/Globulin Ratio 1.2 1.2-2.2 Normal (applies to non-n umeric results) [facility] ([facility]) ID Date Data Source [id number] 07/11/2019 08:12:00 AM EDT [facility] ([facility]) Name Value Range Interpretation Code Description Data Emilia rce(s) Supporting Document(s) Thyroxine (T4) free [Mass/volume] in Serum or Plasma 0.97 ng/dL 0.76-1.46 Normal (applies to non-numeric results) [facility] ([facility]) <content>note:<nlbl:demographic_changed> </content>
<content></content> Thyrotropin [Units/volume] in Serum or Plasma 1.240 uIU/ML 0. 358-3.740 Normal (applies to non-numeric results) [facility] ([facility]) <content>note:<nlbl:demographic_changed> </content>
<content></content> ID Date Data Source [id number] 07/11/2019 08:12:00 AM EDT [facility] ([facility]) Name Value Range Interpretation Code Description Data Emilia rce(s) Supporting Document(s) Blood Urea Nitrogen 14 mg/dL 7-18 Normal (applies to non-nume julia results) [facility] ([facility]) Glucose, Fasting 122 mg/dL 70-100 Above high normal [facility]) Glomerular Filtration Rate Laboratory test result Normal (applies to non- numeric results) [facility] ([facility]) <content>Units are mL/min/1.73 m2</content>
<content></content>
<content>Chronic Kidney Disease Staging per NKF:</content>
<content></content>
<content>Stage I & II GFR >=60 Normal to Mildly Decreased</content>
<content>Stage III GFR 30- 59 Moderately Decreased</content>
<content>Stage IV GFR 15-29 Severely Decreased</content>
<content>Stage V GFR <15 Very Little GFR Left</content>
<content>ESRD GFR <15 on CNA GNA</content>
<content></content> Sodium Level 140 meq/L 136-145 Normal (applies to non-numeric res ults) [facility] ([facility]) Creatinine For GFR 0.81 mg/dL 0.55-1.30 Normal (applies to non -numeric results) [facility] ([facility]) Potassium Serum 4.5 meq/L 3.5-5.1 Normal (applies to non-numeric results) [facility] ([facility]) Chloride Level 104 meq/L 98-107 Normal (applies to non-numeric r esults) [facility] ([facility]) Anion Gap 5 meq/L 8-16 Below low normal [facility] ( [facility]) Carbon Dioxide Level 31 meq/L 21-32 Normal (applies to non-num randal results) [facility] ([facility]) Ast/Sgot 15 U/L 7-37 Normal (applies to non-numeric resul ts) [facility] ([facility]) Calcium Level 8.5 mg/dL 8.5-10.1 Normal (applies to non-numeric re sults) [facility] ([facility]) Alt/SGPT 29 U/L 12-78 Normal (applies to non-numeric resul ts) [facility] ([facility]) Bilirubin,Total 0.6 mg/dL 0.2-1.0 Normal (applies to non-numeric results) [facility] ([facility]) Alkaline Phosphatase 126 U/L 45-117 Above high normal [facility] ([facility]) Albumin 4.0 GM/DL 3.2-5.2 Normal (applies to non-numeric resul ts) [facility] ([facility]) Total Protein 7.1 GM/DL 6.4-8.2 Normal (applies to non-numeric re sults) [facility] ([facility]) Albumin/Globulin Ratio 1.29 1.00-1.93 Normal (applies to non-numeric results) [facility] ([facility]) ID Date Data Source [id number] 07/11/2019 08:12:00 AM EDT [facility] ([facility]) Name Value Range Interpretation Code Description Data Emilia rce(s) Supporting Document(s) Hemoglobin A1c 6.3 % Normal (applies to non-numeric r esults) [facility] ([facility]) REFERENCE RANGES: 4.5-5.6% NORMAL 5.7-6.4% SUGGESTS IMPAIRED GLUCOSE META BOLISM >= 6.5% ABNORMAL Estimated Average Glucose 134 mg/dL 60-110 Above high normal [facility] ([facility]) ID Date Data Source [id number] 04/04/2019 09:45:00 AM EST [facility] ([facility]) Name Value Range Interpretation Code Description Data Emilia rce(s) Supporting Document(s) Creatinine, Urine 144.0 mg/dL Normal (applies to non-numer ic results) [facility] ([facility]) Malb Urine Siemens 8.5 mg/L Normal (applies to non-numer ic results) [facility] ([facility]) Isidro/Creat Ratio 5.9 MCG/MG 0.0-30.0 Normal (applies to non-numeric results) [facility] ([facility]) [employer] STATES THAT MICROALBUMINURIA IS PRESENT IF THE MICROALBUMIN/CREATININE RATIO EXCEEDS 30 MCG/MG. THE THRESHOLD FOR CLINICAL ALBUMINURIA IS REACHED AT 300 MCG/MG. THE CLASSIFICATION OF A PATIENT SHOULD BE BASED UPON AT LEAST 2 OF 3 ABNORMAL RESULTS ON SPECIMENS COLLECTED WITHIN A 3 TO 6 MONTH TIME FRAME. ID Date Data Source [id number] 04/04/2019 09:45:00 AM EST [facility] ([facility]) Name Value Range Interpretation Code Description Data Emilia rce(s) Supporting Document(s) Hemoglobin A1c 6.7 % Normal (applies to non-numeric r esults) [facility] ([facility]) REFERENCE RANGES: 4.5-5.6% NORMAL 5.7-6.4% SUGGESTS IMPAIRED GLUCOSE META BOLISM >= 6.5% ABNORMAL Estimated Average Glucose 146 mg/dL 60-110 Above high normal [facility] ([facility]) ID Date Data Source [id number] 04/04/2019 09:45:00 AM EST [facility] ([facility]) Name Value Range Interpretation Code Description Data Emilia rce(s) Supporting Document(s) Glucose, Fasting 130 mg/dL 70-100 Above high normal [facility] Glomerular Filtration Rate > 60.0 Normal (applies to n on-numeric results) [facility]) <content>Units are mL/min/1.73 m2</content>
<content></content>
<content>Chronic Kidney Disease Staging per NKF:</content>
<content></content>
<content>Stage I & II GFR >=60 Normal to Mildly Decreased</content>
<content>Stage III GFR 30- 59 Moderately Decreased</content>
<content>Stage IV GFR 15-29 Severely Decreased</content>
<content>Stage V GFR <15 Very Little GFR Left</content>
<content>ESRD GFR <15 on CNA GNA</content>
<content></content> Creatinine For GFR 0.78 mg/dL 0.55-1.30 Normal (applies to non -numeric results) [facility] ([facility]) Blood Urea Nitrogen 17 mg/dL 7-18 Normal (applies to non-nume julia results) [facility] ([facility]) Chloride Level 103 meq/L 98-107 Normal (applies to non-numeric r esults) [facility] ([facility]) Sodium Level 140 meq/L 136-145 Normal (applies to non-numeric res ults) [facility] ([facility]) Potassium Serum 4.7 meq/L 3.5-5.1 Normal (applies to non-numeric results) [facility] ([facility]) Anion Gap 7 meq/L 8-16 Below low normal [facility] ( [facility]) Calcium Level 8.8 mg/dL 8.5-10.1 Normal (applies to non-numeric re sults) [facility] ([facility]) Carbon Dioxide Level 30 meq/L 21-32 Normal (applies to non-num randal results) [facility] ([facility]) Ast/Sgot 33 U/L 7-37 Normal (applies to non-numeric resul ts) [facility] ([facility]) Alt/SGPT 38 U/L 12-78 Normal (applies to non-numeric resul ts) [facility] ([facility]) Alkaline Phosphatase 137 U/L 45-117 Above high normal [facility] ([facility]) Bilirubin,Total 0.4 mg/dL 0.2-1.0 Normal (applies to non-numeric results) [facility] ([facility]) Albumin/Globulin Ratio 1.11 1.00-1.93 Normal (applies to non-numeric results) [facility] ([facility]) Total Protein 7.6 GM/DL 6.4-8.2 Normal (applies to non-numeric re sults) [facility] ([facility]) Albumin 4.0 GM/DL 3.2-5.2 Normal (applies to non-numeric resul ts) [facility] ([facility]) ID Date Data Source [id number] 04/04/2019 09:45:00 AM EST [facility] ([facility]) Name Value Range Interpretation Code Description Data Emilia rce(s) Supporting Document(s) Free T4 0.78 ng/dL 0.76-1.46 Normal (applies to non-numeric resul ts) [facility] ([facility]) Thyroid Stimulating Hormone 2.130 uIU/ML 0.358-3.740 Norm al (applies to non- numeric results) [facility] ([facility]) ID Date Data Source [id number] 04/04/2019 09:45:00 AM EST [facility] ([facility]) Name Value Range Interpretation Code Description Data Emilia rce(s) Supporting Document(s) Hemoglobin 14.4 g/dL 12.0-15.5 Normal (applies to non-numeric resul ts) [facility] ([facility]) White Blood Count 8.6 10 4.0-10.0 Normal (applies to non-numeri c results) [facility] ([facility]) Red Blood Count 4.79 10 4.00-5.40 Normal (applies to non-numeric results) [facility] ([facility]) Hematocrit 44.8 % 36.0-47.0 Normal (applies to non-numeric resul ts) [facility] ([facility]) Mean Corpuscular Hemoglobin 30.1 pg 27.0-33.0 Norm al (applies to non-numeric results) [facility] ([facility]) Mean Corpuscular Volume 93.5 fl 80.0-96.0 Normal ( applies to non-numeric results) [facility] ([facility]) Mean Corpuscular HGB Conc 32.1 g/dL 32.0-36.5 Normal (applies to non-numeric results) [facility] ([facility]) Red Cell Distribution Width 13.3 % 11.5-14.5 Norm al (applies to non-numeric results) [facility] ([facility]) Platelet Count, Automated 279 10 150-450 Normal (applies to non-numeric results) [facility] ([facility]) Neutrophils % 70.7 % 36.0-66.0 Above high normal [facility] ([facility]) Lymph % 20.9 % 24.0-44.0 Below low normal [facility] ( [facility]) Toole % 5.6 % 0.0-5.0 Above high normal [facility] ([facility]) Baso % 0.9 % 0.0-1.0 Normal (applies to non-numeric resul ts) [facility] ([facility]) Immature Granulocyte % 0.6 % 0-3.0 Normal (applies to non-n umeric results) [facility] ([facility]) Eos % 1.3 % 0.0-3.0 Normal (applies to non-numeric resul ts) [facility] ([facility]) Neutrophils # 6.1 10 1.5-8.5 Normal (applies to non-numeric re sults) [facility] ([facility]) Lymph # 1.8 10 1.5-5.0 Normal (applies to non-numeric resul ts) [facility] ([facility]) Nucleated Red Blood Cell % 0.0 % 0-0 Normal (applies to n on-numeric results) [facility] ([facility]) Baso # 0.1 10 0.0-0.2 Normal (applies to non-numeric resul ts) [facility] ([facility]) Toole # 0.5 10 0.0-0.8 Normal (applies to non-numeric resul ts) [facility] ([facility]) Eos # 0.1 10 0.0-0.5 Normal (applies to non-numeric resul ts) [facility] ([facility]) Procedure Social History Code Duration Value Status Description Data Source(s ) Smoking 10/05/2019 12:00:00 AM EDT Patient has never smoked co mpleted Patient has never smoked [facility] ([facility]) Vital Signs ID Date Data Source [id number] Name Value Range Interpretation Code Description Data Source(s) [place] body weight 120 [lb_av] 120 [lb_av] [facility] T ([facility]) Oxygen saturation in Arterial blood by Pulse oximetry 98 % 98 % [facility] ([facility]) Body temperature 99.1 [degF] 99.1 [degF] [facility] ([facility]) Respiratory rate 18 /min 18 /min [facility] ( [facility]) Heart rate 95 /min 95 /min [facility] ([facility]) Body mass index (BMI) [Ratio] 29.4 kg/m2 29.4 k g/m2 [facility] ([facility]) Body weight 171.38 [lb_av] 171.38 [lb_av] [facility] ([facility]) Body height 64.0 [in_i] 64.0 [in_i] [facility] ([facility]) 5'4" Diastolic blood pressure 80 mm[Hg] 80 mm[Hg] [facility] ([facility]) Systolic blood pressure 124 mm[Hg] 124 mm[Hg] M [facility] ([facility]) Body mass index (BMI) [Ratio] 27.5 kg/m2 27.5 k g/m2 [facility] ([facility]) Body height 65 [in_i] 65 [in_i] [facility] ([facility], [facility]) 5'5" Body weight 165.00 [lb_av] 165.00 [lb_av] [facility] T ([facility], [facility]) Body temperature 98.6 [degF] 98.6 [degF] [facility] ([facility], [facility]) Oxygen saturation in Arterial blood by Pulse oximetry 98 % 98 % [facility] ([facility], [facility]) Respiratory rate 15 /min 15 /min [facility] ( [facility], [facility]) Heart rate 96 /min 96 /min [facility] ([facility], [facility]) Diastolic blood pressure 83 mm[Hg] 83 mm[Hg] [facility] ([facility], [facility]) Systolic blood pressure 128 mm[Hg] 128 mm[Hg] M EDENT ([facility], [facility]) Body mass index (BMI) [Ratio] 28.6 kg/m2 28.6 k g/m2 [facility] ([facility], [facility]) Body height 65 [in_i] 65 [in_i] [facility] ([facility], [facility]) 5'5" Body weight 172.00 [lb_av] 172.00 [lb_av] [facility] T ([facility], [facility]) Body temperature 98.4 [degF] 98.4 [degF] [facility] ([facility], [facility]) Oxygen saturation in Arterial blood by Pulse oximetry 98 % 98 % [facility] ([facility], [facility]) Respiratory rate 16 /min 16 /min [facility] ( [facility], [facility]) Heart rate 110 /min 110 /min [facility] ([facility], [facility]) Diastolic blood pressure 88 mm[Hg] 88 mm[Hg] [facility] ([facility], [facility]) Systolic blood pressure 133 mm[Hg] 133 mm[Hg] M EDENT ([facility], [facility]) [place] body weight 120 [lb_av] 120 [lb_av] [facility] T ([facility]) Oxygen saturation in Arterial blood by Pulse oximetry 95 % 95 % [facility] ([facility]) Body temperature 98.1 [degF] 98.1 [degF] [facility] ([facility]) Respiratory rate 16 /min 16 /min [facility] ( [facility]) Heart rate 102 /min 102 /min [facility]) Body mass index (BMI) [Ratio] 29.6 kg/m2 29.6 k g/m2 [facility] ([facility]) Body weight 172.25 [lb_av] 172.25 [lb_av] [facility] T ([facility]) Body height 64.0 [in_i] 64.0 [in_i] [facility] ([facility]) 5'4" Diastolic blood pressure 82 mm[Hg] 82 mm[Hg] [facility] ([facility]) Systolic blood pressure 118 mm[Hg] 118 mm[Hg] M [facility] ([facility]) Body mass index (BMI) [Ratio] 28.8 kg/m2 28.8 k g/m2 [facility] ([facility], [facility]) Body height 65 [in_i] 65 [in_i] [facility] ([facility], [facility]) 5'5" Body weight 173.00 [lb_av] 173.00 [lb_av] [facility] T ([facility], [facility]) Body temperature 98.5 [degF] 98.5 [degF] [facility] ([facility], [facility]) Oxygen saturation in Arterial blood by Pulse oximetry 96 % 96 % [facility]) Heart rate 78 /min 78 /min [facility] ([facility], [facility]) Diastolic blood pressure 89 mm[Hg] 89 mm[Hg] [facility] ([facility]) Systolic blood pressure 124 mm[Hg] 124 mm[Hg] M EDENT ([facility], [facility]) [place] body weight 120 [lb_av] 120 [lb_av] [facility] T ([facility]) Oxygen saturation in Arterial blood by Pulse oximetry 99 % 99 % [facility] ([facility]) Body temperature 99.0 [degF] 99.0 [degF] [facility] ([facility]) Respiratory rate 16 /min 16 /min [facility] ( [facility]) Heart rate 75 /min 75 /min [facility] ([facility]) Body mass index (BMI) [Ratio] 30.2 kg/m2 30.2 k g/m2 [facility] ([facility]) Body weight 176.12 [lb_av] 176.12 [lb_av] [facility] T ([facility]) Body height 64.0 [in_i] 64.0 [in_i] [facility] ([facility]) 5'4" Diastolic blood pressure 78 mm[Hg] 78 mm[Hg] [facility] ([facility]) Systolic blood pressure 124 mm[Hg] 124 mm[Hg] M [facility]ENT ([facility]) Oxygen saturation in Arterial blood by Pulse oximetry 97 % 97 % [facility] ([facility]) Body temperature 97.8 [degF] 97.8 [degF] [facility] ([facility]) Respiratory rate 18 /min 18 /min [facility] ( [facility]) Heart rate 100 /min 100 /min [facility] ([facility]) Body mass index (BMI) [Ratio] 29.5 kg/m2 29.5 k g/m2 [facility] ([facility]) Body weight 172.00 [lb_av] 172.00 [lb_av] ROHAN Huber ([facility]) Body height 64.0 [in_i] 64.0 [in_i] LOLLY ([facility]) 5'4" Diastolic blood pressure 86 mm[Hg] 86 mm[Hg] LOLLY ([facility]) Systolic blood pressure 124 mm[Hg] 124 mm[Hg] Dmitry HAM ([facility]) Oxygen saturation in Arterial blood by Pulse oximetry 97 % 97 % [facility] ([facility]) Body temperature 97.8 [degF] 97.8 [degF] [facility] ([facility]) Heart rate 102 /min 102 /min [facility] ([facility]) Body mass index (BMI) [Ratio] 29.8 kg/m2 29.8 k g/m2 [facility] ([facility]) Body weight 173.50 [lb_av] 173.50 [lb_av] ROHAN Huber ([facility]) Body height 64.0 [in_i] 64.0 [in_i] LO[facility] ([facility]) 5'4" Diastolic blood pressure 84 mm[Hg] 84 mm[Hg] LOLLY ([facility]) Systolic blood pressure 132 mm[Hg] 132 mm[Hg] Dmitry HAM ([facility])
[2020-05-31 18:06] LABS: BASO # 0.1 10^3/uL (0.0-0.2); BASO % 0.6 % (0.0-1.0); EOS # 0.3 10^3/uL (0.0-0.5); EOS % 2.5 % (0.0-3.0); HEMATOCRIT 42.7 % (36.0-47.0); HEMOGLOBIN 14.2 g/dl (12.0-15.5); LYMPH # 2.8 10^3/uL (1.5-5.0); LYMPH % 25.6 % (24.0-44.0); MEAN CORPUSCULAR HEMOGLOBIN 30.5 pg (27.0-33.0); MEAN CORPUSCULAR HGB CONC 33.3 g/dl (32.0-36.5); MEAN CORPUSCULAR VOLUME 91.8 fl (80.0-96.0); MONO # 0.9 10^3/uL (0.0-0.8); MONO % 8.3 % (2.0-8.0); NEUTROPHILS # 6.9 10^3/uL (1.5-8.5); NEUTROPHILS % 62.5 % (36.0-66.0); PLATELET COUNT, AUTOMATED 285 10^3/uL (150-450); RED BLOOD COUNT 4.65 10^6/uL (4.00-5.40)
[2020-05-31 18:28] LABS: ALBUMIN 4.3 GM/DL (3.2-5.2); ALT/SGPT 22 U/L (12-78); BILIRUBIN,DIRECT < 0.1 MG/DL (0.0-0.2); BILIRUBIN,TOTAL 0.3 MG/DL (0.2-1.0); LIPASE 189 U/L (73-393); TOTAL PROTEIN 7.7 GM/DL (6.4-8.2)
[2020-05-31] MEDS: GASTROGRAFIN SOLUTION 30ML PO SCH ×2 (19:43→20:23)
--- NOTE | 2020-05-31 19:44 | ECGEPIP ---
[facility] - ED Test Date: 2020-05-31 Pat Name: CATE MYERS Department: Room: - Gender: Female [employer] Director: LR : 1970 Requested By: Gilson Burt Order Number: [id number] Reading MD: Kylah Guan Measurements Intervals [place] Rate: 107 P: 48 CA: 156 QRS: -2 QRSD: 74 T: 24 QT: 324 QTc: 432 Interpretive Statements Sinus tachycardia Possible Inferior infarct , age undetermined No prior Electronically Signed on 05-31-2020 19:44:19 EST by Kylah Guan
[2020-05-31] MEDS ORDERED: ISOVUE-370 76% 100ML VIAL As Ordered ONE (20:41)
--- NOTE | 2020-05-31 21:30 | REPVR ---
PROCEDURE INFORMATION: Exam: CT Abdomen And Pelvis With Contrast Exam date and time: 05/31/2020 8:46 PM Age: 49 years old Clinical indication: Other: Pancreatitis TECHNIQUE: Imaging protocol: Computed tomography of the abdomen and pelvis with contrast. Radiation optimization: All CT scans at this facility use at least one of these dose optimization techniques: automated exposure control; mA and/or kV adjustment per patient size (includes targeted exams where dose is matched to clinical indication); or iterative reconstruction. Contrast material: ISOVUE 370; Contrast volume: 100 ml; Contrast route: INTRAVENOUS (IV); COMPARISON: No relevant prior studies available. FINDINGS: Lungs: The lung bases are unremarkable. Liver: There are no focal liver lesions. Gallbladder and bile ducts: Cholecystectomy. Pancreas: There does not appear to be peripancreatic inflammation. No pancreatic mass is identified. There is no dilatation of the pancreatic duct nor the common bile duct. Spleen: The spleen is unremarkable. Adrenal glands: The adrenal glands are unremarkable. Kidneys and ureters: The kidneys are unremarkable. Stomach and bowel: There is no evidence of intestinal obstruction. Appendix: No evidence of appendicitis. Intraperitoneal space: Unremarkable. No free air. No significant fluid collection. Vasculature: There is no evidence of an infrarenal abdominal aortic aneurysm. There is mild atherosclerotic calcification. Lymph nodes: Unremarkable. No enlarged lymph nodes. Urinary bladder: The bladder is unremarkable. Reproductive: Unremarkable as visualized. Bones/joints: Unremarkable. No acute fracture. Soft tissues: There is small focal areas of increased density within the adipose tissue of the anterior abdominal wall which may be due to subcutaneous injections. There is a fat-containing umbilical hernia. IMPRESSION: There is no peripancreatic inflammation nor inflammation the root of the mesentery or retroperitoneum to suggest acute pancreatitis. No acute findings in the abdomen or pelvis. Electronically signed by: Shannan Gomez On 05/31/2020 21:30:23 PM
[2020-05-31] MEDS ORDERED: GI COCKTAIL 50ML BTL(HYOSCYAMINE/MAALOX/LIDOCAINE VISCOUS)(1:3:1) PO ONE (22:40)
[2020-05-31] MEDS ORDERED: OMEP40CA97 PO (22:54)
[2020-05-31] MEDS ORDERED: SUCR1TA PO (22:54)
[2020-05-31 23:58] VITALS: BP 128/80
== END 2020-06-01 00:11 | disposition home or self-care (01) ==
LOC: M ED 17:08
DX: K29.70 Gastritis, unspecified, without bleeding (principal); E11.9 Type 2 diabetes mellitus without complications; E78.5 Hyperlipidemia, unspecified; E04.2 Nontoxic multinodular goiter; D50.9 Iron deficiency anemia, unspecified; Z79.899 Other long term (current) drug therapy; Z79.890 Hormone replacement therapy; Z79.84 Long term (current) use of oral hypoglycemic drugs
CPT/HCPCS: 74177; 80047; 80076; 83690; 85025; 93005; 96374; 99285; J1885; Q9963; Q9967

== ENCOUNTER → 2020-10-10 | Outpatient (CLI) | payer BC ==
[~2020-10-10] MED LIST changes: +OMEP40CA4 PO; +SUCR1TA PO
[2020-10-10 10:16] LABS: HEMATOCRIT 42.1 % (36.0-47.0); HEMOGLOBIN 13.7 g/dl (12.0-15.5); MEAN CORPUSCULAR HEMOGLOBIN 30.2 pg (27.0-33.0); MEAN CORPUSCULAR HGB CONC 32.5 g/dl (32.0-36.5); MEAN CORPUSCULAR VOLUME 92.7 fl (80.0-96.0); PLATELET COUNT, AUTOMATED 261 10^3/uL (150-450); RED BLOOD COUNT 4.54 10^6/uL (4.00-5.40); WHITE BLOOD COUNT 6.4 10^3/uL (4.0-10.0)
[2020-10-10 10:55] LABS: HEMOGLOBIN A1c 5.9 %
[2020-10-10 11:00] LABS: MALB URINE SIEMENS 7.5 MG/L; MAU/CREAT RATIO 5.2 MCG/MG (0.0-30.0)
[2020-10-10 11:01] LABS: ALBUMIN 4.1 GM/DL (3.2-5.2); ALT/SGPT 25 U/L (12-78); BILIRUBIN,TOTAL 0.3 MG/DL (0.2-1.0); BLOOD UREA NITROGEN 15 MG/DL (7-18); CALCIUM LEVEL 8.4 MG/DL (8.5-10.1); CARBON DIOXIDE LEVEL 30 MEQ/L (21-32); CHLORIDE LEVEL 103 MEQ/L (98-107); CHOLESTEROL LEVEL 155 MG/DL (<200); CHOLESTEROL RISK RATIO 2.818 (<5); CREATININE FOR GFR 0.78 MG/DL (0.55-1.30); FERRITIN 93 NG/ML (8-252); FREE T4 0.87 NG/DL (0.76-1.46); GLOMERULAR FILTRATION RATE > 60.0 (>58); GLUCOSE, FASTING 110 MG/DL (70-100); HDL CHOLESTEROL 55 MG/DL (>40); IRON (FE) 78 UG/DL (50-170); LDL CHOLESTEROL 85 MG/DL (<100); NON-HDL-C 100 MG/DL; PERCENT SATURATION 26.2 % (13.2-45.0); SODIUM LEVEL 138 MEQ/L (136-145); TOTAL 25(OH) VITAMIN D 51.8 NG/ML (30.0-100.0); TOTAL IRON BINDING CAPACITY 298 UG/DL (250-450); TOTAL PROTEIN 7.2 GM/DL (6.4-8.2); TRIGLYCERIDES LEVEL 76 MG/DL (<150)
== END ==
LOC: M WUC 08:27
PROVIDERS: ATTEND Physician Assistant
DX: E11.9 Type 2 diabetes mellitus without complications (principal)

== ENCOUNTER → 2020-11-09 | Outpatient (CLI) | payer BC ==
--- NOTE | 2020-11-09 16:10 | REPMRS ---
Patient History The patient states she has not had a clinical breast exam in over a year. Patient is postmenopausal. No known family history of cancer. No Hormone Replacement Therapy No breast complaints today Patient signed the MRS sheet 1st covid vaccine 05/10/20-Moderna 2nd covid vaccine 06/07/20-not sure which arm either were done in [facility] on PACS Patient Identification Verified Patient denied Digital Woman Screen Mammo: November 09, 2020 - Exam #: [id number] Bilateral CC and MLO view(s) were taken. Technologist: Amrita Mercado, Technologist Prior study comparison: November 03, 2019, bilateral digital woman screen mammo performed at [facility]. October 25, 2018, bilateral digital woman screen mammo performed at [facility]. FINDINGS: The breast tissue is heterogeneously dense. This may lower the sensitivity of mammography. Screening. Digital screening (2D) mammography was performed bilaterally in the CC and MLO projections. Additionally, breast tomosynthesis (3D mammography) was performed bilaterally in the CC and MLO projections. Todays exam was compared to the prior exam/exams. By history, the patient has no complaints of a palpable breast abnormality or other significant breast complaints. The breasts are unchanged in size and shape. Once again, dense heterogenous fibroglandular elements are seen bilaterally in a stable appearing pattern but to such a degree that the sensitivity of the mammogram in detecting cancer is decreased.There are no sultana-soft tissue densities or spiculated masses. There is no internal architectural distortion. Once again, stable benign appearing calcifications are seen.There are no suspicious sultana-calcific clusters. Skin thickening or nipple retraction is not present. IMPRESSION: BI-RADS Category 2- Benign Findings. There is no evidence of malignant alteration of the breasts. Followup examination recommended in one year. The Volpara volumetric breast density category is C, the breasts are heterogenously dense which may obscure small masses. This mammogram was read with the assistance of [employer],an FDA approved computer aided detection system for mammography. The lifetime Tyrer-Cuzick score is 7.9 % Due to the density of the breasts or Tyrer Cuzick score of 20% or greater, MRI/whole breast screening ultrasound is warranted. Negative x-ray reports should not delay surgical consultation if a dominant or clinically suspicious mass is present. Not all breast cancers can be identified by mammography. Therefore, we recommend that you continue to perform regular breast self-examination and physical examination and then promptly contact your physician of any concerns or changes. Adenosis and dense breasts may obscure an underlying neoplasm. Assessment: BI-RADS/ACR category 2 mammogram. Benign Findings. Recommendation Routine screening mammogram of both breasts in 1 year. Electronically Signed By: Gage Pan DO 11/09/20 [id number]
== END ==
LOC: M WHC 13:33
PROVIDERS: ATTEND Physician Assistant
DX: Z12.31 Encounter for screening mammogram for malignant neoplasm of breast (principal); Z78.0 Asymptomatic menopausal state

== ENCOUNTER → 2020-12-28 | Outpatient (REF) | payer BC | LOC: M LAB REF 15:11 | PROVIDERS: ATTEND Physician Assistant | DX: J06.9 Acute upper respiratory infection, unspecified (principal) ==

== ENCOUNTER → 2021-04-16 | Outpatient (CLI) | payer BC ==
[2021-04-16 09:54] LABS: BASO # 0.1 10^3/uL (0.0-0.2); BASO % 0.8 % (0.0-1.0); EOS # 0.2 10^3/uL (0.0-0.5); EOS % 2.8 % (0.0-3.0); HEMATOCRIT 40.8 % (36.0-47.0); HEMOGLOBIN 13.1 g/dl (12.0-15.5); LYMPH # 2.1 10^3/uL (1.5-5.0); LYMPH % 33.8 % (24.0-44.0); MEAN CORPUSCULAR HEMOGLOBIN 30.2 pg (27.0-33.0); MEAN CORPUSCULAR HGB CONC 32.1 g/dl (32.0-36.5); MONO # 0.5 10^3/uL (0.0-0.8); NEUTROPHILS # 3.3 10^3/uL (1.5-8.5); NEUTROPHILS % 54.3 % (36.0-66.0); PLATELET COUNT, AUTOMATED 261 10^3/uL (150-450); RED BLOOD COUNT 4.34 10^6/uL (4.00-5.40); WHITE BLOOD COUNT 6.1 10^3/uL (4.0-10.0)
[2021-04-16 10:16] LABS: HEMOGLOBIN A1c 5.5 %
[2021-04-16 10:17] LABS: MALB URINE SIEMENS 12.4 MG/L; MAU/CREAT RATIO 7.2 MCG/MG (0.0-30.0)
[2021-04-16 10:33] LABS: BLOOD UREA NITROGEN 22 MG/DL (7-18); CARBON DIOXIDE LEVEL 32 MEQ/L (21-32); CHLORIDE LEVEL 105 MEQ/L (98-107); CREATININE FOR GFR 0.76 MG/DL (0.55-1.30); GLOMERULAR FILTRATION RATE > 60.0 (>58); GLUCOSE, FASTING 121 MG/DL (70-100); POTASSIUM SERUM 4.3 MEQ/L (3.5-5.1); SODIUM LEVEL 142 MEQ/L (136-145)
[2021-04-16 10:34] LABS: ALBUMIN 4.2 GM/DL (3.2-5.2); ALT/SGPT 23 U/L (12-78); BILIRUBIN,TOTAL 0.4 MG/DL (0.2-1.0); FREE T4 0.85 NG/DL (0.76-1.46); THYROID STIMULATING HORMONE 0.908 uIU/ML (0.358-3.740); TOTAL PROTEIN 7.4 GM/DL (6.4-8.2)
== END ==
LOC: M WUC 08:03
PROVIDERS: ATTEND Physician Assistant
DX: E03.9 Hypothyroidism, unspecified (principal); E11.9 Type 2 diabetes mellitus without complications

== ENCOUNTER → 2021-07-15 | Outpatient (CLI) | payer BC ==
[2021-07-15 11:16] LABS: HEMOGLOBIN A1c 5.9 %
[2021-07-15 11:29] LABS: FREE T4 1.07 NG/DL (0.76-1.46); THYROID STIMULATING HORMONE 1.2 uIU/ML (0.358-3.740)
== END ==
LOC: M WUC 08:21
PROVIDERS: ATTEND Physician Assistant
DX: E03.9 Hypothyroidism, unspecified (principal); E11.9 Type 2 diabetes mellitus without complications

== ENCOUNTER → 2021-08-27 | Outpatient (REF) | payer BC | LOC: M PLALAB 08:12 | PROVIDERS: ATTEND Advanced Practice Midwife | DX: Z12.4 Encounter for screening for malignant neoplasm of cervix (principal) | CPT/HCPCS: 87624; G0123 ==

== ENCOUNTER → 2021-11-18 | Outpatient (CLI) | payer BC ==
[2021-11-18 11:27] LABS: BASO % 0.6 % (0.0-1.0); EOS # 0.1 10^3/uL (0.0-0.5); EOS % 1.5 % (0.0-3.0); HEMATOCRIT 42.8 % (36.0-47.0); HEMOGLOBIN 14.1 g/dl (12.0-15.5); LYMPH # 1.9 10^3/uL (1.5-5.0); LYMPH % 28.1 % (24.0-44.0); MEAN CORPUSCULAR HEMOGLOBIN 30.9 pg (27.0-33.0); MEAN CORPUSCULAR HGB CONC 32.9 g/dl (32.0-36.5); MEAN CORPUSCULAR VOLUME 93.9 fl (80.0-96.0); MONO # 0.6 10^3/uL (0.0-0.8); NEUTROPHILS # 4.1 10^3/uL (1.5-8.5); NEUTROPHILS % 60.2 % (36.0-66.0); PLATELET COUNT, AUTOMATED 281 10^3/uL (150-450); RED BLOOD COUNT 4.56 10^6/uL (4.00-5.40); WHITE BLOOD COUNT 6.8 10^3/uL (4.0-10.0)
[2021-11-18 11:35] LABS: HEMOGLOBIN A1c 6.3 %
[2021-11-18 12:27] LABS: BLOOD UREA NITROGEN 18 MG/DL (7-18); CALCIUM LEVEL 9.3 MG/DL (8.5-10.1); CARBON DIOXIDE LEVEL 27 MEQ/L (21-32); CHLORIDE LEVEL 104 MEQ/L (98-107); CREATININE FOR GFR 0.79 MG/DL (0.55-1.30); GLOMERULAR FILTRATION RATE > 60.0 (>58); GLUCOSE, FASTING 98 MG/DL (70-100); POTASSIUM SERUM 4.5 MEQ/L (3.5-5.1); SODIUM LEVEL 138 MEQ/L (136-145)
[2021-11-18 12:28] LABS: ALBUMIN 4.3 GM/DL (3.2-5.2); ALT/SGPT 31 U/L (12-78); BILIRUBIN,TOTAL 0.5 MG/DL (0.2-1.0); CHOLESTEROL LEVEL 183 MG/DL (<200); CHOLESTEROL RISK RATIO 3.388 (<5); FREE T4 0.99 NG/DL (0.76-1.46); HDL CHOLESTEROL 54 MG/DL (>40); LDL CHOLESTEROL 101 MG/DL (<100); NON-HDL-C 129 MG/DL; THYROID STIMULATING HORMONE 0.884 uIU/ML (0.358-3.740); TOTAL PROTEIN 7.5 GM/DL (6.4-8.2); TRIGLYCERIDES LEVEL 139 MG/DL (<150)
== END ==
LOC: M WUC 08:24
PROVIDERS: ATTEND Family Medicine
DX: E11.9 Type 2 diabetes mellitus without complications (principal)

== ENCOUNTER → 2022-02-18 | Outpatient (CLI) | payer BC ==
[2022-02-18 15:29] LABS: HEMOGLOBIN A1c 5.8 % (4.0-6.0)
[2022-02-18 15:36] LABS: ALBUMIN 4.5 G/DL (3.2-5.2); ALT/SGPT 21 U/L (7.0-40); BILIRUBIN,TOTAL 0.5 MG/DL (0.3-1.2); BLOOD UREA NITROGEN 21 MG/DL (9-23); CALCIUM LEVEL 9.4 MG/DL (8.5-10.1); CARBON DIOXIDE LEVEL 29 MMOL/L (20-31); CHLORIDE LEVEL 102 MMOL/L (98-107); CREATININE FOR GFR 0.81 MG/DL (0.55-1.30); FREE T4 1.02 NG/DL (0.89-1.76); GLOMERULAR FILTRATION RATE > 60.0 (>58); GLUCOSE, FASTING 102 MG/DL (60-100); POTASSIUM SERUM 4.5 MMOL/L (3.5-5.1); SODIUM LEVEL 142 MMOL/L (136-145); THYROID STIMULATING HORMONE 0.562 uIU/ML (0.55-4.78); TOTAL PROTEIN 7.3 G/DL
== END ==
LOC: M WUC 08:29
PROVIDERS: ATTEND Physician Assistant
DX: E03.9 Hypothyroidism, unspecified (principal); E11.9 Type 2 diabetes mellitus without complications

== ENCOUNTER → 2022-03-12 | Outpatient (REF) | payer BC | LOC: M WUC 19:17 | PROVIDERS: ATTEND Physician Assistant | DX: R30.0 Dysuria (principal) ==

== ENCOUNTER → 2022-03-25 | Outpatient (REF) | payer BC | LOC: M LAB REF 17:14 | PROVIDERS: ATTEND Physician Assistant | DX: N39.0 Urinary tract infection, site not specified (principal) ==

== ENCOUNTER → 2022-06-03 | Outpatient (CLI) | payer OTHER ==
[2022-06-03 09:42] LABS: BASO # 0.1 10^3/uL (0.0-0.2); BASO % 0.9 % (0.0-1.0); EOS # 0.1 10^3/uL (0.0-0.5); HEMATOCRIT 40.6 % (36.0-47.0); HEMOGLOBIN 13.3 g/dl (12.0-15.5); MEAN CORPUSCULAR HEMOGLOBIN 30.2 pg (27.0-33.0); MEAN CORPUSCULAR HGB CONC 32.8 g/dl (32.0-36.5); MEAN CORPUSCULAR VOLUME 92.1 fl (80.0-96.0); MONO # 0.6 10^3/uL (0.0-0.8); MONO % 8.2 % (2.0-8.0); NEUTROPHILS # 4.1 10^3/uL (1.5-8.5); NEUTROPHILS % 59.6 % (36.0-66.0); PLATELET COUNT, AUTOMATED 258 10^3/uL (150-450); RED BLOOD COUNT 4.41 10^6/uL (4.00-5.40); WHITE BLOOD COUNT 6.9 10^3/uL (4.0-10.0)
[2022-06-03 10:14] LABS: CREATININE, URINE 233.2 MG/DL
[2022-06-03 10:15] LABS: MAU/CREAT RATIO 4.2 MCG/MG (0.0-30.0)
[2022-06-03 10:18] LABS: THYROID STIMULATING HORMONE 0.486 uIU/ML (0.55-4.78)
[2022-06-03 10:19] LABS: TOTAL 25(OH) VITAMIN D 55.3 NG/ML (20.0-100.0)
[2022-06-03 10:24] LABS: ALBUMIN 4.2 G/DL (3.2-5.2); ALKALINE PHOSPHATASE 96 U/L (46-116); ALT/SGPT 22 U/L (7.0-40); AST/SGOT 21 U/L (<34); BILIRUBIN,TOTAL 0.6 MG/DL (0.3-1.2); BLOOD UREA NITROGEN 19 MG/DL (9-23); CALCIUM LEVEL 8.9 MG/DL (8.5-10.1); CARBON DIOXIDE LEVEL 32 MMOL/L (20-31); CHLORIDE LEVEL 102 MMOL/L (98-107); CREATININE FOR GFR 0.75 MG/DL (0.55-1.30); GLOMERULAR FILTRATION RATE > 60.0 (>58); GLUCOSE, FASTING 105 MG/DL (60-100); POTASSIUM SERUM 4.4 MMOL/L (3.5-5.1); SODIUM LEVEL 141 MMOL/L (136-145); TOTAL PROTEIN 7.1 G/DL (5.7-8.2)
== END ==
LOC: M WUC 08:08
PROVIDERS: ATTEND Physician Assistant
DX: E03.9 Hypothyroidism, unspecified (principal); E11.9 Type 2 diabetes mellitus without complications

== ENCOUNTER → 2022-12-19 | Outpatient (CLI) | payer OTHER | LOC: M RAD 15:59 | PROVIDERS: ATTEND Physician Assistant | DX: M25.361 Other instability, right knee (principal) ==

== ENCOUNTER → 2023-03-12 | Outpatient (CLI) | payer OTHER | LOC: M PLAIMG 15:11 | PROVIDERS: ATTEND Physician Assistant | DX: M25.561 Pain in right knee (principal) ==

== ENCOUNTER → 2023-10-04 | Outpatient (REF) | payer BC ==
[~2023-10-04] MED LIST changes: +IRBE75TA11 PO; -IRBE75TA4 PO
== END ==
LOC: M LAB REF 17:50
PROVIDERS: ATTEND Student in an Organized Health Care Education/Training Program
DX: R30.0 Dysuria (principal)

== ENCOUNTER → 2023-11-10 | Outpatient (CLI) | payer BC ==
[2023-11-10 10:49] LABS: BASO % 0.5 % (0.0-1.0); EOS # 0.2 10^3/uL (0.0-0.5); HEMATOCRIT 39.1 % (36.0-47.0); HEMOGLOBIN 12.8 g/dl (12.0-15.5); LYMPH # 2.1 10^3/uL (1.5-5.0); LYMPH % 27.9 % (24.0-44.0); MEAN CORPUSCULAR HGB CONC 32.7 g/dl (32.0-36.5); MEAN CORPUSCULAR VOLUME 91.6 fl (80.0-96.0); MONO # 0.6 10^3/uL (0.0-0.8); MONO % 8.6 % (2.0-8.0); NEUTROPHILS # 4.4 10^3/uL (1.5-8.5); NEUTROPHILS % 59.2 % (36.0-66.0); PLATELET COUNT, AUTOMATED 271 10^3/uL (150-450); RED BLOOD COUNT 4.27 10^6/uL (4.00-5.40); WHITE BLOOD COUNT 7.4 10^3/uL (4.0-10.0)
[2023-11-10 11:06] LABS: HEMOGLOBIN A1c 6.8 % (4.0-6.0)
[2023-11-10 11:10] LABS: ALBUMIN 4.2 G/DL (3.2-5.2); ALKALINE PHOSPHATASE 122 U/L (46-116); ALT/SGPT 32 U/L (7.0-40); AST/SGOT 19 U/L (<34); BILIRUBIN,TOTAL 0.3 MG/DL (0.3-1.2); BLOOD UREA NITROGEN 13 MG/DL (9-23); CALCIUM LEVEL 9.1 MG/DL (8.5-10.1); CARBON DIOXIDE LEVEL 33 MMOL/L (20-31); CHLORIDE LEVEL 103 MMOL/L (98-107); CHOLESTEROL LEVEL 161 MG/DL (<200); CHOLESTEROL RISK RATIO 2.97 (<5); CREATININE FOR GFR 0.76 MG/DL (0.55-1.30); GLOMERULAR FILTRATION RATE > 60.0 (>51); GLUCOSE, FASTING 154 MG/DL (60-100); HDL CHOLESTEROL 54.1 MG/DL (>40); LDL CHOLESTEROL 82.5 MG/DL (<100); NON-HDL-C 106.9 MG/DL; POTASSIUM SERUM 4.8 MMOL/L (3.5-5.1); SODIUM LEVEL 139 MMOL/L (136-145); TOTAL PROTEIN 7.1 G/DL (5.7-8.2); TRIGLYCERIDES LEVEL 122 MG/DL (<150)
[2023-11-10 11:12] LABS: FREE T4 1.13 NG/DL (0.89-1.76)
== END ==
LOC: M WUC 08:27
PROVIDERS: ATTEND Physician Assistant
DX: Z00.00 Encounter for general adult medical examination without abnormal findings (principal); E11.9 Type 2 diabetes mellitus without complications; E03.9 Hypothyroidism, unspecified

== ENCOUNTER → 2024-02-17 | Outpatient (CLI) | payer BC ==
[2024-02-17 10:53] LABS: BASO # 0.1 10^3/uL (0.0-0.2); BASO % 0.8 % (0.0-1.0); EOS # 0.1 10^3/uL (0.0-0.5); EOS % 1.2 % (0.0-3.0); HEMATOCRIT 40.3 % (36.0-47.0); HEMOGLOBIN 13.3 g/dl (12.0-15.5); LYMPH # 1.8 10^3/uL (1.5-5.0); LYMPH % 23.9 % (24.0-44.0); MEAN CORPUSCULAR HEMOGLOBIN 30.4 pg (27.0-33.0); MONO # 0.6 10^3/uL (0.0-0.8); MONO % 8.1 % (2.0-8.0); NEUTROPHILS # 4.9 10^3/uL (1.5-8.5); NEUTROPHILS % 65.5 % (36.0-66.0); PLATELET COUNT, AUTOMATED 304 10^3/uL (150-450); RED BLOOD COUNT 4.38 10^6/uL (4.00-5.40); WHITE BLOOD COUNT 7.5 10^3/uL (4.0-10.0)
[2024-02-17 11:06] LABS: CREATININE, URINE 236.3 MG/DL; MAU/CREAT RATIO 3.8 MCG/MG (0.0-30.0)
[2024-02-17 11:08] LABS: ALKALINE PHOSPHATASE 110 U/L (35-104); ALT/SGPT 24 U/L (7.0-40); AST/SGOT 13 U/L (<34); BILIRUBIN,TOTAL 0.7 MG/DL (0.3-1.2); BLOOD UREA NITROGEN 18 MG/DL (9-23); CALCIUM LEVEL 9.4 MG/DL (8.5-10.1); CARBON DIOXIDE LEVEL 31 MMOL/L (20-31); CHLORIDE LEVEL 105 MMOL/L (98-107); CREATININE FOR GFR 0.76 MG/DL (0.55-1.30); GLOMERULAR FILTRATION RATE > 60.0 (>51); GLUCOSE, FASTING 111 MG/DL (60-100); SODIUM LEVEL 140 MMOL/L (136-145); TOTAL PROTEIN 7.6 G/DL (5.7-8.2)
[2024-02-17 11:10] LABS: FREE T4 1.26 NG/DL (0.89-1.76); THYROID STIMULATING HORMONE 0.288 uIU/ML (0.55-4.78)
== END ==
LOC: M WUC 08:04
PROVIDERS: ATTEND Physician Assistant
DX: E11.9 Type 2 diabetes mellitus without complications (principal); E03.9 Hypothyroidism, unspecified

== ENCOUNTER → 2024-05-16 | Outpatient (CLI) | payer BC ==
[2024-05-16 11:28] LABS: BASO # 0.1 10^3/uL (0.0-0.2); BASO % 0.7 % (0.0-1.0); EOS # 0.1 10^3/uL (0.0-0.5); EOS % 0.9 % (0.0-3.0); HEMATOCRIT 42.4 % (36.0-47.0); HEMOGLOBIN 13.7 g/dl (12.0-15.5); LYMPH # 2.4 10^3/uL (1.5-5.0); LYMPH % 26.5 % (24.0-44.0); MEAN CORPUSCULAR HEMOGLOBIN 29.8 pg (27.0-33.0); MEAN CORPUSCULAR HGB CONC 32.3 g/dl (32.0-36.5); MEAN CORPUSCULAR VOLUME 92.4 fl (80.0-96.0); MONO # 0.6 10^3/uL (0.0-0.8); MONO % 6.8 % (2.0-8.0); NEUTROPHILS # 5.8 10^3/uL (1.5-8.5); NEUTROPHILS % 64.8 % (36.0-66.0); PLATELET COUNT, AUTOMATED 295 10^3/uL (150-450); RED BLOOD COUNT 4.59 10^6/uL (4.00-5.40); WHITE BLOOD COUNT 8.9 10^3/uL (4.0-10.0)
[2024-05-16 11:47] LABS: HEMOGLOBIN A1c 5.9 % (4.0-6.0)
[2024-05-16 11:59] LABS: CREATININE, URINE 200.1 MG/DL
[2024-05-16 12:00] LABS: MAU/CREAT RATIO 4.9 MCG/MG (0.0-30.0)
[2024-05-16 12:11] LABS: ALBUMIN 4.2 G/DL (3.2-5.2); ALKALINE PHOSPHATASE 112 U/L (35-104); ALT/SGPT 19 U/L (7.0-40); AST/SGOT 12 U/L (<34); BILIRUBIN,TOTAL 0.5 MG/DL (0.3-1.2); BLOOD UREA NITROGEN 19 MG/DL (9-23); CALCIUM LEVEL 9.4 MG/DL (8.5-10.1); CARBON DIOXIDE LEVEL 30 MMOL/L (20-31); CHLORIDE LEVEL 106 MMOL/L (98-107); CREATININE FOR GFR 0.79 MG/DL (0.55-1.30); GLOMERULAR FILTRATION RATE > 60.0 (>51); GLUCOSE, FASTING 116 MG/DL (60-100); POTASSIUM SERUM 4.5 MMOL/L (3.5-5.1); SODIUM LEVEL 144 MMOL/L (136-145); TOTAL PROTEIN 7.6 G/DL (5.7-8.2)
[2024-05-16 12:12] LABS: FREE T4 1.23 NG/DL (0.89-1.76); THYROID STIMULATING HORMONE 0.558 uIU/ML (0.55-4.78)
== END ==
LOC: M WUC 08:06
PROVIDERS: ATTEND Physician Assistant
DX: E11.9 Type 2 diabetes mellitus without complications (principal); E03.9 Hypothyroidism, unspecified

== ENCOUNTER → 2024-06-08 | Outpatient (CLI) | payer BC | LOC: M WHC 15:35 | PROVIDERS: ATTEND Physician Assistant | DX: Z12.31 Encounter for screening mammogram for malignant neoplasm of breast (principal); R92.333 Mammographic heterogeneous density, bilateral breasts ==

== ENCOUNTER → 2024-08-12 | Outpatient (CLI) | payer BC ==
[2024-08-12 13:54] LABS: THYROID STIMULATING HORMONE 0.284 uIU/ML (0.55-4.78)
[2024-08-12 13:55] LABS: FREE T4 1.27 NG/DL (0.89-1.76)
[2024-08-12 13:59] LABS: ALBUMIN 4.1 G/DL (3.2-5.2); ALKALINE PHOSPHATASE 108 U/L (35-104); ALT/SGPT 20 U/L (7.0-40); AST/SGOT 16 U/L (<34); BILIRUBIN,TOTAL 0.5 MG/DL (0.3-1.2); BLOOD UREA NITROGEN 20 MG/DL (9-23); CALCIUM LEVEL 8.8 MG/DL (8.5-10.1); CARBON DIOXIDE LEVEL 32 MMOL/L (20-31); CHLORIDE LEVEL 104 MMOL/L (98-107); CHOLESTEROL LEVEL 155 MG/DL (<200); CHOLESTEROL RISK RATIO 3.08 (<5); CREATININE FOR GFR 0.71 MG/DL (0.55-1.30); GLOMERULAR FILTRATION RATE > 90.0 (>51); GLUCOSE, FASTING 87 MG/DL (60-100); HDL CHOLESTEROL 50.2 MG/DL (>40); LDL CHOLESTEROL 81.8 MG/DL (<100); NON-HDL-C 104.8 MG/DL; POTASSIUM SERUM 4.6 MMOL/L (3.5-5.1); SODIUM LEVEL 144 MMOL/L (136-145); TOTAL PROTEIN 7.1 G/DL (5.7-8.2); TRIGLYCERIDES LEVEL 115 MG/DL (<150)
== END ==
LOC: M WUC 08:14
PROVIDERS: ATTEND Physician Assistant
DX: E11.9 Type 2 diabetes mellitus without complications (principal); E03.9 Hypothyroidism, unspecified

== ENCOUNTER → 2024-08-22 | Outpatient (CLI) | payer BC | LOC: M WUC 14:10 | PROVIDERS: ATTEND Physician Assistant | DX: M21.611 Bunion of right foot (principal); M19.071 Primary osteoarthritis, right ankle and foot ==